=== PATIENT | male | born 1955 | race Caucasian/White ===

== ENCOUNTER 2018-05-24 10:18 | Inpatient (IN) | payer BC, OTHER ==
[~2018-05-24] VITALS: Ht 182.9 cm; Wt 112.9 kg
[2018-05-24] MEDS ORDERED: labetalol 20mg/4ml (5mg/ml) syringe IV STA (13:18)
[2018-05-24 13:45] LABS: BASOPHILS # (AUTO) 0.1 X10'3 (0-0.2); EOSINOPHILS # (AUTO) 0.4 X10'3 (0-0.9); EOSINOPHILS % (AUTO) 5.5 % (0-6); HEMATOCRIT 26.3 % (42.0-52.0); HEMOGLOBIN 8.5 g/dl (14.0-17.9); LYMPHOCYTES # (AUTO) 1.1 X10'3 (1.1-4.8); LYMPHOCYTES % (AUTO) 17.4 % (21-51); MEAN CORPUSCULAR HEMOGLOBIN 27.8 PG (27.0-31.0); MEAN CORPUSCULAR HGB CONC 32.4 g/dL (33.0-36.5); MEAN CORPUSCULAR VOLUME 85.8 FL (78-98); MEAN PLATELET VOLUME 6.3 FL (7.4-10.4); MONOCYTES # (AUTO) 0.5 X10'3 (0-0.9); MONOCYTES % (AUTO) 8.4 % (2-12); NEUTROPHILS # (AUTO) 4.4 X10'3 (1.8-7.7); NEUTROPHILS % (AUTO) 67.7 % (42-75); PLATELET COUNT 215 X10'3 (140-440); RED BLOOD COUNT 3.06 X10'6 (4.70-6.10); RED CELL DISTRIBUTION WIDTH 15.2 % (11.5-14.5); WHITE BLOOD COUNT 6.4 X10'3 (4.5-11.0)
[2018-05-24 13:57] LABS: ALANINE AMINOTRANSFERASE 20 U/L (12-78); ALBUMIN 3.3 G/DL (3.4-5.0); ALBUMIN/GLOBULIN RATIO 0.8 (1.1-1.5); ALKALINE PHOSPHATASE 88 IU/L (46-116); ANION GAP 11 (8-16); ASPARTATE AMINO TRANSFERASE 15 U/L (10-37); BILIRUBIN,TOTAL 0.3 MG/DL (0.1-1.0); BLOOD UREA NITROGEN 79 MG/DL (7-18); BUN/CREATININE RATIO 9.3 (5.4-32.0); CALCIUM 8.7 MG/DL (8.5-10.1); CHLORIDE 106 MMOL/L (99-107); CREATININE 8.48 MG/DL (0.60-1.10); GLUCOSE 101 MG/DL (70-104); POTASSIUM 4.9 MMOL/L (3.5-5.1); SODIUM 139 MMOL/L (135-145); TOTAL CARBON DIOXIDE 21.6 MMOL/L (24-32); TOTAL PROTEIN 7.2 G/DL (6.4-8.2); eGFR 6 ML/MIN
[2018-05-24 14:01] LABS: PARTIAL THROMBOPLASTIN TIME 28 SECONDS (22-32); PROTHROMBIN TIME 10.3 SECONDS (9.0-12.0)
[2018-05-24 14:06] LABS: MAGNESIUM 2.2 MG/DL (1.5-2.4); PHOSPHORUS 6.2 MG/DL (2.3-4.5)
[2018-05-24 15:00] VITALS: BP 223/110
[2018-05-24] MEDS ORDERED: HYDR-4069 PO ×2 (15:30→15:37)
[2018-05-24] MEDS ORDERED: DILT180C95 PO (15:36)
[2018-05-24] MEDS ORDERED: LOSA25TA96 PO (15:39)
[2018-05-24] MEDS ORDERED: CLIN300C53 PO (15:41)
[2018-05-24] MEDS ORDERED: diphenhydrAMINE 25mg capsule PO PRN (16:05)
[2018-05-24] MEDS ORDERED: acetaminophen 325mg tablet PO PRN (16:05)
[2018-05-24] MEDS ORDERED: HYDROmorphone inj. 0.5 MG/0.5 ML DISP.SYRIN IV PRN (16:05)
[2018-05-24] MEDS ORDERED: HYDROcodone/acetaminophen 5mg/325mg tablet PO PRN (16:05)
[2018-05-24] MEDS ORDERED: ondansetron/PF 4mg/2ml inj IV PRN (16:05)
[2018-05-24] MEDS ORDERED: furosemide 10 MG/1 ML 10ml inj IV ONE (16:25)
--- NOTE | 2018-05-24 16:49 | NUR ---
[address] PIV to bilat hands unsuccessful. Dr Thornton notified and OK to put piv in the arms. Attempt x [address] extended PIV to right upper arm but unable to thread. 20g to right forearm using ultrasound placed. Dr Thornton at bedside. Addendum: 05/24/18 at 1652 by Valerie Golden RN Amended: Links added.
[2018-05-24] MEDS: sevelamer carbonate 800mg tablet PO SCH (17:51)
[2018-05-24 18:00] VITALS: BP 184/90
[2018-05-24] MEDS ORDERED: labetalol 20mg/4ml (5mg/ml) syringe IV ONE (18:00)
[2018-05-24] MEDS: heparin, porcine 5000 units/ml vial SQ SCH (18:12)
[2018-05-24] MEDS: docusate sod 100mg capsule PO SCH (19:42)
[2018-05-24] MEDS: hydrALAZINE 25 MG tablet PO SCH (19:43)
[2018-05-24] MEDS ORDERED: heparin, porcine 5000 units/ml vial SQ SCH (20:00)
--- NOTE | 2018-05-24 20:22 | NUR ---
Orientee documentation: I have reviewed and agree with all interventions, assessments performed and documented by FARIHA Peralta.
--- NOTE | 2018-05-24 20:24 | NUR ---
Orientee Medication Administration: For this medication-pass time frame, all medication were reviewed, dispensed, administered and documented per hospital policy by FARIHA Peralta.
[2018-05-24] MEDS: labetalol 100mg tablet PO SCH (20:42)
--- NOTE | 2018-05-24 21:10 | NUR ---
Patient in room PCU 3009. I have received report from Dylan FRIED and had the opportunity to ask questions and assume patient care.
--- NOTE | 2018-05-24 21:26 | NUR ---
Problems reprioritized. Patient report given, questions answered & plan of care reviewed with FARIHA Prince.
[2018-05-24 23:00] VITALS: BP 157/81
[2018-05-25] VITALS (14 sets, daily range): BP systolic 110–196; BP diastolic 51–81
[2018-05-25 06:00] LABS: BASOPHILS # (AUTO) 0.1 X10'3 (0-0.2); BASOPHILS % (AUTO) 1.3 % (0-1); EOSINOPHILS # (AUTO) 0.4 X10'3 (0-0.9); EOSINOPHILS % (AUTO) 6.6 % (0-6); HEMATOCRIT 22.3 % (42.0-52.0); HEMOGLOBIN 7.7 g/dl (14.0-17.9); LYMPHOCYTES # (AUTO) 1.4 X10'3 (1.1-4.8); LYMPHOCYTES % (AUTO) 24.5 % (21-51); MEAN CORPUSCULAR HEMOGLOBIN 29.1 PG (27.0-31.0); MEAN CORPUSCULAR HGB CONC 34.3 g/dL (33.0-36.5); MEAN PLATELET VOLUME 6.6 FL (7.4-10.4); MONOCYTES # (AUTO) 0.5 X10'3 (0-0.9); MONOCYTES % (AUTO) 9.5 % (2-12); NEUTROPHILS # (AUTO) 3.3 X10'3 (1.8-7.7); NEUTROPHILS % (AUTO) 58.1 % (42-75); PLATELET COUNT 189 X10'3 (140-440); RED BLOOD COUNT 2.63 X10'6 (4.70-6.10); RED CELL DISTRIBUTION WIDTH 15.3 % (11.5-14.5); WHITE BLOOD COUNT 5.6 X10'3 (4.5-11.0)
[2018-05-25 06:10] LABS: ALBUMIN 2.9 G/DL (3.4-5.0); ANION GAP 11 (8-16); BLOOD UREA NITROGEN 81 MG/DL (7-18); BUN/CREATININE RATIO 9.5 (5.4-32.0); CALCIUM 8.2 MG/DL (8.5-10.1); CHLORIDE 106 MMOL/L (99-107); CREATININE 8.51 MG/DL (0.60-1.10); GLUCOSE 109 MG/DL (70-104); MAGNESIUM 2.1 MG/DL (1.5-2.4); PHOSPHORUS 6.9 MG/DL (2.3-4.5); SODIUM 141 MMOL/L (135-145); TOTAL CARBON DIOXIDE 23.7 MMOL/L (24-32); eGFR 6 ML/MIN
[2018-05-25] MEDS: heparin, porcine 5000 units/ml vial SQ SCH ×2 (07:35→20:52)
[2018-05-25] MEDS ORDERED: diltiazem CD 180mg cap (once-daily) PO SCH ×2 (08:00)
[2018-05-25] MEDS ORDERED: heparin 1,000unit/ml 10ml vial 10 ML ONE (08:09)
[2018-05-25] MEDS ORDERED: midazolam 2 mg/2 ml injection ONE (08:09)
[2018-05-25] MEDS ORDERED: fentaNYL/PF 50MCG/1 ML 2ML syringe ONE (08:09)
[2018-05-25] MEDS ORDERED: LIDOcaine 1%/PF 5ML 10 MG/ML VIAL ONE (08:19)
[2018-05-25] MEDS: docusate sod 100mg capsule PO SCH ×2 (09:21→20:51)
[2018-05-25] MEDS: diltiazem CD 180mg cap (once-daily) PO SCH (09:21)
[2018-05-25] MEDS: folic acid/vitamin B complex w/vitamin C 0.8mg tablet PO SCH (09:21)
[2018-05-25] MEDS: hydrALAZINE 25 MG tablet PO SCH ×2 (09:22→20:53)
[2018-05-25] MEDS: labetalol 100mg tablet PO SCH ×3 (09:23→20:52)
[2018-05-25] MEDS: furosemide 10 MG/1 ML 10ml inj IV SCH (09:25)
[2018-05-25] MEDS: sevelamer carbonate 800mg tablet PO SCH ×2 (09:34→12:08)
[2018-05-25] MEDS ORDERED: heparin 1,000 units/ml 10ml inj IV ONE (14:30)
[2018-05-25] MEDS ORDERED: albumin (Human) 5% 250ml 250 ML IV PRN (14:30)
[2018-05-25] MEDS ORDERED: epoetin 20,000 units/ml inj IV ONE (14:30)
[2018-05-25] MEDS ORDERED: heparin 1,000unit/ml 10ml vial 10 ML IV ONE (14:30)
[2018-05-25] MEDS ORDERED: heparin 1,000 units/ml 10ml inj HE ONE ×2 (14:35)
--- NOTE | 2018-05-25 18:31 | NUR ---
Problems reprioritized. Patient report given, questions answered & plan of care reviewed with Maria Elena FRIED.
--- NOTE | 2018-05-25 18:32 | NUR ---
Patient in room U 3009. I have received report from FARIHA Monreal and had the opportunity to ask questions and assume patient care. Addendum: 05/25/18 at 1833 by Maria Elena Gee RN Amended: Links added.
--- NOTE | 2018-05-25 18:33 | NUR ---
Patient in room PCU 3009. I have received report from FARIHA Nicholas (not Cesar) and had the opportunity to ask questions and assume patient care.
[2018-05-26 02:00] VITALS: BP 139/60
[2018-05-26 05:15] LABS: BASOPHILS # (AUTO) 0.1 X10'3 (0-0.2); BASOPHILS % (AUTO) 0.8 % (0-1); EOSINOPHILS # (AUTO) 0.3 X10'3 (0-0.9); HEMATOCRIT 23.3 % (42.0-52.0); HEMOGLOBIN 7.9 g/dl (14.0-17.9); LYMPHOCYTES # (AUTO) 1.4 X10'3 (1.1-4.8); LYMPHOCYTES % (AUTO) 20.6 % (21-51); MEAN CORPUSCULAR HEMOGLOBIN 28.9 PG (27.0-31.0); MEAN CORPUSCULAR HGB CONC 33.9 g/dL (33.0-36.5); MEAN CORPUSCULAR VOLUME 85.2 FL (78-98); MEAN PLATELET VOLUME 6.7 FL (7.4-10.4); MONOCYTES # (AUTO) 0.7 X10'3 (0-0.9); MONOCYTES % (AUTO) 10.7 % (2-12); NEUTROPHILS # (AUTO) 4.2 X10'3 (1.8-7.7); NEUTROPHILS % (AUTO) 62.9 % (42-75); PLATELET COUNT 191 X10'3 (140-440); RED BLOOD COUNT 2.73 X10'6 (4.70-6.10); RED CELL DISTRIBUTION WIDTH 15.1 % (11.5-14.5); WHITE BLOOD COUNT 6.6 X10'3 (4.5-11.0)
[2018-05-26 05:30] LABS: ANION GAP 8 (8-16); BLOOD UREA NITROGEN 50 MG/DL (7-18); BUN/CREATININE RATIO 8.1 (5.4-32.0); CALCIUM 8.5 MG/DL (8.5-10.1); CHLORIDE 104 MMOL/L (99-107); CREATININE 6.17 MG/DL (0.60-1.10); GLUCOSE 106 MG/DL (70-104); PHOSPHORUS 5.1 MG/DL (2.3-4.5); POTASSIUM 4.4 MMOL/L (3.5-5.1); SODIUM 140 MMOL/L (135-145); TOTAL CARBON DIOXIDE 27.6 MMOL/L (24-32); eGFR 9 ML/MIN
--- NOTE | 2018-05-26 06:32 | NUR ---
Patient in room PCU 3009. I have received report from Sabra FRIED and had the opportunity to ask questions and assume patient care.
--- NOTE | 2018-05-26 06:41 | NUR ---
Received pt. last night while having his first dilaysis. No noted changes in condition, denies chest pain or SOB. Cooperative and pleasant. Noted with high BP and medicated with good effect. Pt slept good and denies of any discomfort. Problems reprioritized. Patient report given, questions answered & plan of care reviewed with FARIHA Cortez.
[2018-05-26 07:00] VITALS: BP 137/62
[2018-05-26] MEDS ORDERED: heparin 1,000 units/ml 10ml inj HE ONE ×2 (08:00)
[2018-05-26] MEDS: folic acid/vitamin B complex w/vitamin C 0.8mg tablet PO SCH (08:04)
[2018-05-26] MEDS: sevelamer carbonate 800mg tablet PO SCH ×4 (08:05→17:32)
[2018-05-26] MEDS: furosemide 10 MG/1 ML 10ml inj IV SCH (08:06)
[2018-05-26] MEDS: diltiazem CD 180mg cap (once-daily) PO SCH (08:07)
[2018-05-26] MEDS: docusate sod 100mg capsule PO SCH ×2 (08:07→21:01)
[2018-05-26] MEDS: heparin, porcine 5000 units/ml vial SQ SCH ×2 (08:07→21:02)
[2018-05-26] MEDS: labetalol 100mg tablet PO SCH ×3 (08:07→21:00)
[2018-05-26] MEDS: hydrALAZINE 25 MG tablet PO SCH ×2 (08:07→21:01)
[2018-05-26] MEDS ORDERED: epoetin 20,000 units/ml inj IV ONE (08:25)
[2018-05-26] MEDS ORDERED: albumin (Human) 5% 250ml 250 ML IV PRN (10:15)
[2018-05-26 11:00] VITALS: BP 104/54
[2018-05-26 15:00] VITALS: BP 124/61
[2018-05-26 18:00] VITALS: BP 114/47
--- NOTE | 2018-05-26 18:47 | NUR ---
Problems reprioritized. Patient report given, questions answered & plan of care reviewed with Mecca FRIED. Patient stable at transfer of care.
--- NOTE | 2018-05-26 18:53 | NUR ---
Patient in room PCU 3009. I have received report from Dana FRIED and had the opportunity to ask questions and assume patient care.
[2018-05-26 22:00] VITALS: BP 121/59
[2018-05-27 02:00] VITALS: BP 117/51
[2018-05-27 05:57] LABS: BASOPHILS # (AUTO) 0.1 X10'3 (0-0.2); BASOPHILS % (AUTO) 1.1 % (0-1); EOSINOPHILS # (AUTO) 0.5 X10'3 (0-0.9); EOSINOPHILS % (AUTO) 6.8 % (0-6); HEMATOCRIT 23.6 % (42.0-52.0); HEMOGLOBIN 7.8 g/dl (14.0-17.9); MEAN CORPUSCULAR HEMOGLOBIN 28.4 PG (27.0-31.0); MEAN CORPUSCULAR HGB CONC 33.2 g/dL (33.0-36.5); MEAN CORPUSCULAR VOLUME 85.5 FL (78-98); MEAN PLATELET VOLUME 6.9 FL (7.4-10.4); MONOCYTES # (AUTO) 0.7 X10'3 (0-0.9); MONOCYTES % (AUTO) 10.2 % (2-12); NEUTROPHILS # (AUTO) 3.7 X10'3 (1.8-7.7); NEUTROPHILS % (AUTO) 52.9 % (42-75); PLATELET COUNT 194 X10'3 (140-440); RED BLOOD COUNT 2.76 X10'6 (4.70-6.10); RED CELL DISTRIBUTION WIDTH 15.4 % (11.5-14.5); WHITE BLOOD COUNT 6.9 X10'3 (4.5-11.0)
[2018-05-27 06:02] LABS: ALBUMIN 3.1 G/DL (3.4-5.0); ANION GAP 9 (8-16); BLOOD UREA NITROGEN 40 MG/DL (7-18); BUN/CREATININE RATIO 7.1 (5.4-32.0); CALCIUM 8.7 MG/DL (8.5-10.1); CHLORIDE 102 MMOL/L (99-107); CREATININE 5.63 MG/DL (0.60-1.10); GLUCOSE 115 MG/DL (70-104); MAGNESIUM 1.8 MG/DL (1.5-2.4); PHOSPHORUS 4.3 MG/DL (2.3-4.5); POTASSIUM 4.1 MMOL/L (3.5-5.1); SODIUM 138 MMOL/L (135-145); TOTAL CARBON DIOXIDE 27.5 MMOL/L (24-32); eGFR 10 ML/MIN
[2018-05-27 07:00] VITALS: BP 131/57
--- NOTE | 2018-05-27 07:20 | NUR ---
Problems reprioritized. Patient report given, questions answered & plan of care reviewed with Dana FRIED.
[2018-05-27] MEDS: docusate sod 100mg capsule PO SCH (07:55)
[2018-05-27] MEDS: folic acid/vitamin B complex w/vitamin C 0.8mg tablet PO SCH (07:55)
[2018-05-27] MEDS: furosemide 10 MG/1 ML 10ml inj IV SCH (07:55)
[2018-05-27] MEDS ORDERED: normal saline 1000ml 250 ML IV PRN (08:00)
[2018-05-27] MEDS: heparin, porcine 5000 units/ml vial SQ SCH (08:00)
[2018-05-27] MEDS ORDERED: heparin 1,000unit/ml 10ml vial 10 ML IV ONE ×2 (08:00)
[2018-05-27] MEDS: diltiazem CD 180mg cap (once-daily) PO SCH (08:00)
[2018-05-27] MEDS: hydrALAZINE 25 MG tablet PO SCH (08:00)
[2018-05-27] MEDS ORDERED: albumin (Human) 5% 250ml 250 ML IV PRN ×2 (08:00)
[2018-05-27] MEDS ORDERED: heparin 1,000 units/ml 10ml inj HE ONE ×4 (08:00)
[2018-05-27] MEDS ORDERED: heparin 1,000 units/ml 10ml inj IV ONE (08:00)
[2018-05-27] MEDS ORDERED: epoetin 20,000 units/ml inj IV ONE (08:00)
[2018-05-27] MEDS: labetalol 100mg tablet PO SCH ×2 (08:00→13:00)
[2018-05-27] MEDS: sevelamer carbonate 800mg tablet PO SCH ×2 (08:30→15:48)
[2018-05-27 10:18] LABS: BASOPHILS # (AUTO) 0.1 X10'3 (0-0.2); BASOPHILS % (AUTO) 1.2 % (0-1); EOSINOPHILS # (AUTO) 0.5 X10'3 (0-0.9); EOSINOPHILS % (AUTO) 7.9 % (0-6); HEMATOCRIT 24.6 % (42.0-52.0); HEMOGLOBIN 8.1 g/dl (14.0-17.9); LYMPHOCYTES # (AUTO) 1.7 X10'3 (1.1-4.8); LYMPHOCYTES % (AUTO) 25.9 % (21-51); MEAN CORPUSCULAR HEMOGLOBIN 28.5 PG (27.0-31.0); MEAN CORPUSCULAR VOLUME 86.2 FL (78-98); MEAN PLATELET VOLUME 6.7 FL (7.4-10.4); MONOCYTES # (AUTO) 0.7 X10'3 (0-0.9); MONOCYTES % (AUTO) 10.9 % (2-12); NEUTROPHILS # (AUTO) 3.5 X10'3 (1.8-7.7); NEUTROPHILS % (AUTO) 54.1 % (42-75); PLATELET COUNT 197 X10'3 (140-440); RED BLOOD COUNT 2.85 X10'6 (4.70-6.10); RED CELL DISTRIBUTION WIDTH 15.4 % (11.5-14.5); WHITE BLOOD COUNT 6.5 X10'3 (4.5-11.0)
[2018-05-27 10:32] LABS: ALANINE AMINOTRANSFERASE 15 U/L (12-78); ALBUMIN 3.1 G/DL (3.4-5.0); ALBUMIN/GLOBULIN RATIO 0.9 (1.1-1.5); ALKALINE PHOSPHATASE 73 IU/L (46-116); ANION GAP 9 (8-16); ASPARTATE AMINO TRANSFERASE 10 U/L (10-37); BILIRUBIN,TOTAL 0.3 MG/DL (0.1-1.0); BLOOD UREA NITROGEN 39 MG/DL (7-18); BUN/CREATININE RATIO 6.5 (5.4-32.0); CALCIUM 8.7 MG/DL (8.5-10.1); CHLORIDE 103 MMOL/L (99-107); CREATININE 5.98 MG/DL (0.60-1.10); GLUCOSE 112 MG/DL (70-104); POTASSIUM 4.1 MMOL/L (3.5-5.1); SODIUM 140 MMOL/L (135-145); TOTAL CARBON DIOXIDE 28.4 MMOL/L (24-32); TOTAL PROTEIN 6.7 G/DL (6.4-8.2); eGFR 10 ML/MIN
[2018-05-27 11:00] VITALS: BP 139/74
[2018-05-27 13:10] LABS: HBSAG SCREEN Negative (Negative)
[2018-05-27] MEDS ORDERED: DIPH-423 PO (15:44)
[2018-05-27] MEDS ORDERED: COL100C PO (15:44)
[2018-05-27] MEDS ORDERED: LABE100T5 PO (15:44)
[2018-05-27] MEDS ORDERED: ZOF4I PO (15:44)
[2018-05-27] MEDS ORDERED: SEVE800T8 PO (15:44)
[2018-05-27] MEDS ORDERED: FOLI0.8T22 PO (15:44)
[2018-05-27] MEDS ORDERED: FURO10VI51 PO (15:44)
[2018-05-27] MEDS ORDERED: FURO80TA87 PO (16:52)
[2018-05-27] MEDS ORDERED: LABE300T2 PO (16:52)
[2018-05-27] MEDS ORDERED: ONDA4TAB6 PO (16:52)
--- NOTE | 2018-05-27 17:49 | NUR ---
Pt discharged at 1725 home with family. Pt telemetry and PIV removed, belongings sent with patient. Pt discharged packet and education were reviewed before signing. Pt was wheeled down and left via private vehicle with family.
== END 2018-05-27 17:30 | disposition home or self-care (01) | DRG 673 ==
LOC: PCU 3S 12:15
PROVIDERS: ADMIT Internal Medicine Critical Care Medicine; ATTEND Internal Medicine Critical Care Medicine
PROC: 0JH63XZ Insertion of Tunneled Vascular Access Device into Chest Subcutaneous Tissue and Fascia, Percutaneous Approach (ICD-10-PCS; principal; 2018-05-25)
PROC: 02HV33Z Insertion of Infusion Device into Superior Vena Cava, Percutaneous Approach (ICD-10-PCS; 2018-05-25)
PROC: B5181ZA Fluoroscopy of Superior Vena Cava using Low Osmolar Contrast, Guidance (ICD-10-PCS; 2018-05-25)
PROC: B548ZZA Ultrasonography of Superior Vena Cava, Guidance (ICD-10-PCS; 2018-05-25)
PROC: 5A1D70Z Performance of Urinary Filtration, Intermittent, Less than 6 Hours Per Day (ICD-10-PCS; 2018-05-25)
PROC: 5A1D70Z Performance of Urinary Filtration, Intermittent, Less than 6 Hours Per Day (ICD-10-PCS; 2018-05-26)
PROC: 5A1D70Z Performance of Urinary Filtration, Intermittent, Less than 6 Hours Per Day (ICD-10-PCS; 2018-05-27)
DX: I12.0 Hypertensive chronic kidney disease with stage 5 chronic kidney disease or end stage renal disease (principal); N18.6 End stage renal disease; N17.9 Acute kidney failure, unspecified; E87.70 Fluid overload, unspecified; Z79.899 Other long term (current) drug therapy
CPT/HCPCS: 36415; 36558; 71045; 76937; 77001; 80048; 80053; 83735; 83880; 84100; 85025; 85610; 85730; 86706; 87340; 93005; 93306; 93930; 93970; 97161; 97530; 99152; 99153; A9270; C1750; C1769; C1894; G0257; G0378; J0885; J1644; J1940; J2001; J2150; J2250; J3010; J3490; P9045

== ENCOUNTER 2018-11-30 07:47 | Day surgery (SDC) | payer BC ==
[~2018-11-30] VITALS: Ht 177.8 cm; Wt 110.1 kg
[~2018-11-30 07:47] MED LIST: CHOL10002 PO; DOCU-20 PO; FURO-149 PO; LABE100T5 PO; OMEG1CAP87 PO; SEVE800T7 PO; VITA1CAP16 PO
[2018-11-30] MEDS ORDERED: fentaNYL/PF 50MCG/1 ML 2ML syringe ONE (08:53)
[2018-11-30] MEDS ORDERED: heparin 1,000 UNITS/NS 500ml 500 ML ONE (08:53)
[2018-11-30] MEDS ORDERED: midazolam 2 mg/2 ml injection ONE (08:53)
[2018-11-30] MEDS ORDERED: iohexol 300mg/ml 100ml inj. ONE (08:54)
[2018-11-30] MEDS ORDERED: LIDOcaine 1%/PF 5ML 10 MG/ML VIAL ONE (08:54)
[2018-11-30 09:30] VITALS: BP 149/87
[2018-11-30 10:01] LABS: ANION GAP 14 (8-16); BILIRUBIN,TOTAL 0.4 MG/DL (0.1-1.0); BLOOD UREA NITROGEN 61 MG/DL (7-18); BUN/CREATININE RATIO 7.3 (5.4-32.0); CALCIUM 8.8 MG/DL (8.5-10.1); CHLORIDE 104 MMOL/L (99-107); CREATININE 8.32 MG/DL (0.60-1.10); GLUCOSE 110 MG/DL (70-104); SODIUM 141 MMOL/L (135-145); eGFR 7 ML/MIN
[2018-11-30 10:02] LABS: ALANINE AMINOTRANSFERASE 17 U/L (12-78); ALBUMIN 3.6 G/DL (3.4-5.0); ALBUMIN/GLOBULIN RATIO 0.9 (1.1-1.5); ALKALINE PHOSPHATASE 65 IU/L (46-116); ASPARTATE AMINO TRANSFERASE 13 U/L (10-37); TOTAL PROTEIN 7.4 G/DL (6.4-8.2)
[2018-11-30] MEDS ORDERED: heparin 1,000unit/ml 10ml vial 10 ML ONE (10:17)
[2018-11-30 10:32] VITALS: BP 172/87
[2018-11-30 10:45] VITALS: BP 154/77
[2018-11-30 11:00] VITALS: BP 148/78
== END 2018-11-30 11:25 | disposition home or self-care (01) ==
LOC: SSTAY O 07:47
PROVIDERS: ATTEND Radiology Vascular & Interventional Radiology
DX: T82.858A Stenosis of other vascular prosthetic devices, implants and grafts, initial encounter (principal); Y83.2 Surgical operation with anastomosis, bypass or graft as the cause of abnormal reaction of the patient, or of later complication, without mention of misadventure at the time of the procedure; Y92.89 Other specified places as the place of occurrence of the external cause; I12.0 Hypertensive chronic kidney disease with stage 5 chronic kidney disease or end stage renal disease; N18.5 Chronic kidney disease, stage 5; K08.409 Partial loss of teeth, unspecified cause, unspecified class; Z79.899 Other long term (current) drug therapy
CPT/HCPCS: 36415; 36901; 80053; 99152; 99153; C1769; C1894; J1644; J2250; J3010; Q9967; 76937

== ENCOUNTER 2018-12-27 06:44 | Day surgery (SDC) | payer BC ==
[2018-12-26 15:15] LABS: CLARITY,URINE CLEAR (Clear); COLOR,URINE YELLOW (Yellow); GLUCOSE, URINE 100 mg/dl (Neg); KETONES,URINE NEGATIVE (Neg); LEUKOCYTE ESTERASE ,URINE NEGATIVE (Neg); NITRITES, URINE NEGATIVE (Neg); OCCULT BLOOD,URINE TRACE-INTACT (Neg); PROTEIN,URINE 100 mg/dl (Neg); UROBILINOGEN,URINE 0.2 E.U/dL (0.2-1.0)
[2018-12-26 15:23] LABS: UA COLLECTION TYPE CLN CATCH MIDSTREAM
[2018-12-26 15:26] LABS: BACTERIA,URINE NONE SEEN /HPF (Neg); MUCUS STRANDS NONE SEEN /LPF (Neg); RBC,URINE 0-2 /HPF (0-2); SQUAMOUS EPITHELIAL CELL,UR FEW /LPF (FEW); WBC,URINE 0-4 /HPF (0-4)
[2018-12-27] VITALS (10 sets, daily range): BP systolic 142–161; BP diastolic 80–90
[~2018-12-27] VITALS: Ht 177.8 cm; Wt 108.0 kg
[~2018-12-27 06:44] MED LIST changes: +cefazolin/dext.iso 2gm/50ml 50 ML IV ONE; +famotidine 20mg tablet PO ONE; +ringers solution, lacted 1,000 ML IV SCH
[2018-12-27] MEDS ORDERED: proCHLORperazine 10 MG/2 ml inj IV PRN (08:45)
[2018-12-27] MEDS ORDERED: ondansetron/PF 4mg/2ml inj IV PRN (08:45)
[2018-12-27] MEDS ORDERED: ringers solution, lacted 1,000 ML IV SCH (08:45)
[2018-12-27] MEDS ORDERED: meperidine/PF 25mg/ml syringe IV PRN ×3 (08:45)
[2018-12-27] MEDS ORDERED: morphine 4 MG/ML inj SYRINge IV PRN ×2 (08:45)
[2018-12-27 09:08] LABS: BASOPHILS % (AUTO) 0.8 % (0-1); EOSINOPHILS # (AUTO) 0.2 X10'3 (0-0.9); EOSINOPHILS % (AUTO) 3.6 % (0-6); LYMPHOCYTES # (AUTO) 2.4 X10'3 (1.1-4.8); LYMPHOCYTES % (AUTO) 39.3 % (21-51); MEAN CORPUSCULAR HEMOGLOBIN 30.9 PG (27.0-31.0); MEAN CORPUSCULAR HGB CONC 33.7 g/dL (33.0-36.5); MEAN CORPUSCULAR VOLUME 91.7 FL (78-98); MEAN PLATELET VOLUME 6.3 FL (7.4-10.4); MONOCYTES # (AUTO) 0.6 X10'3 (0-0.9); MONOCYTES % (AUTO) 9.7 % (2-12); NEUTROPHILS # (AUTO) 2.9 X10'3 (1.8-7.7); NEUTROPHILS % (AUTO) 46.6 % (42-75); PRE OP HEMATOCRIT 37.2 % (42.0-52.0); PRE OP HEMOGLOBIN 12.5 g/dL (14.0-17.9); PRE OP PLATELET COUNT 185 X10'3 (140-440); RED BLOOD COUNT 4.05 X10'6 (4.70-6.10); RED CELL DISTRIBUTION WIDTH 14.1 % (11.5-14.5)
[2018-12-27 09:20] LABS: ALANINE AMINOTRANSFERASE 21 U/L (12-78); ALBUMIN 3.6 G/DL (3.4-5.0); ALBUMIN/GLOBULIN RATIO 0.9 (1.1-1.5); ALKALINE PHOSPHATASE 77 IU/L (46-116); ANION GAP 10 (8-16); ASPARTATE AMINO TRANSFERASE 13 U/L (10-37); BILIRUBIN,TOTAL 0.4 MG/DL (0.1-1.0); BLOOD UREA NITROGEN 41 MG/DL (7-18); BUN/CREATININE RATIO 5.7 (5.4-32.0); CHLORIDE 101 MMOL/L (99-107); CREATININE 7.21 MG/DL (0.60-1.10); GLUCOSE 111 MG/DL (70-104); SODIUM 138 MMOL/L (135-145); TOTAL CARBON DIOXIDE 27.1 MMOL/L (24-32); TOTAL PROTEIN 7.7 G/DL (6.4-8.2); eGFR 8 ML/MIN
[2018-12-27] MEDS ORDERED: BUPIVAcaine/PF 2.5mg/ml (0.25%) 10ml vial ONE (12:17)
[2018-12-27] MEDS ORDERED: heparin 10,000 units/1 ML INJ ONE (12:17)
[2018-12-27] MEDS ORDERED: desflurane 240ml liquid inh. IH ONE (12:20)
[2018-12-27] MEDS ORDERED: midazolam 2 mg/2 ml injection ONE (12:23)
[2018-12-27] MEDS ORDERED: fentaNYL/PF 50MCG/1 ML 2ML syringe ONE (12:23)
[2018-12-27] MEDS ORDERED: propofol inj 20 ML IV ONE (13:18)
[2018-12-27] MEDS ORDERED: LIDOcaine 2% (20mg/ml) 5ml vial ONE (13:18)
--- NOTE | 2018-12-27 13:50 | NUR ---
ADMITTED TO PACU FROM OR ACCOMPANIED BY ANESTHESIA. INTIAL PHYSICAL ASSESSMENT DONE AND RECORDED. REPORT RECEIVED FROM ANESTHESIA.
--- NOTE | 2018-12-27 15:30 | NUR ---
DISCHARGE CRITERIA MET, DISCHARGE INSTRUCTIONS GIVEN, DEMONSTRATES VERBAL UNDERSTANDING. DISCHARGED HOME IN GOOD CONDITION.
== END 2018-12-27 15:30 | disposition home or self-care (01) ==
LOC: PAS 06:44
PROVIDERS: ATTEND Surgery
DX: I12.9 Hypertensive chronic kidney disease with stage 1 through stage 4 chronic kidney disease, or unspecified chronic kidney disease (principal); N18.9 Chronic kidney disease, unspecified; D64.9 Anemia, unspecified; Z88.8 Allergy status to other drugs, medicaments and biological substances; Z99.2 Dependence on renal dialysis; Z79.899 Other long term (current) drug therapy
CPT/HCPCS: 36415; 36832; 80053; 81001; 85025; 93005; C1757; J1644; J2001; J2175; J2250; J2704; J3010; J3490; J7040; J7120; A4215; A4618; A7000

== ENCOUNTER 2019-02-14 09:22 | Day surgery (SDC) | payer BC ==
[2019-02-14] VITALS (19 sets, daily range): BP systolic 119–177; BP diastolic 57–97
[~2019-02-14] VITALS: Ht 180.3 cm; Wt 110.0 kg
[~2019-02-14 09:22] MED LIST changes: +DOCUMENT DATE & TIME OF BETA-BLOCKER PO ONE; +cefazolin/dext.iso 2gm/100ml 100 ML IV ONE; -cefazolin/dext.iso 2gm/50ml 50 ML IV ONE
[2019-02-14 11:28] LABS: BASOPHILS # (AUTO) 0.1 X10'3 (0-0.2); EOSINOPHILS # (AUTO) 0.2 X10'3 (0-0.9); EOSINOPHILS % (AUTO) 3.3 % (0-6); LYMPHOCYTES # (AUTO) 2.1 X10'3 (1.1-4.8); LYMPHOCYTES % (AUTO) 37.3 % (21-51); MEAN CORPUSCULAR HEMOGLOBIN 31.4 PG (27.0-31.0); MEAN CORPUSCULAR HGB CONC 33.7 g/dL (33.0-36.5); MEAN CORPUSCULAR VOLUME 93.1 FL (78-98); MEAN PLATELET VOLUME 6.6 FL (7.4-10.4); MONOCYTES # (AUTO) 0.6 X10'3 (0-0.9); MONOCYTES % (AUTO) 11.2 % (2-12); NEUTROPHILS # (AUTO) 2.6 X10'3 (1.8-7.7); NEUTROPHILS % (AUTO) 47.2 % (42-75); PRE OP HEMATOCRIT 34.3 % (42.0-52.0); PRE OP HEMOGLOBIN 11.6 g/dL (14.0-17.9); PRE OP PLATELET COUNT 187 X10'3 (140-440); RED BLOOD COUNT 3.69 X10'6 (4.70-6.10); RED CELL DISTRIBUTION WIDTH 14.3 % (11.5-14.5)
[2019-02-14 11:52] LABS: ALBUMIN 3.5 G/DL (3.4-5.0); ALKALINE PHOSPHATASE 69 IU/L (46-116); BLOOD UREA NITROGEN 54 MG/DL (7-18); BUN/CREATININE RATIO 7.5 (5.4-32.0); CALCIUM 8.6 MG/DL (8.5-10.1); CHLORIDE 103 MMOL/L (99-107); CREATININE 7.16 MG/DL (0.60-1.10); PRE OP ALT 17 U/L (30-65); PRE OP ANION GAP 11 (8-16); PRE OP AST 16 U/L (10-37); PRE OP BILIRUB, TOTAL 0.5 MG/DL (0.0-1.0); PRE OP GLUCOSE 101 MG/DL (70-104); PRE OP POTASSIUM 5.2 MMOL/L (3.4-5.1); PRE OP SODIUM 140 MMOL/L (135-145); TOTAL CARBON DIOXIDE 25.6 MMOL/L (24-32); TOTAL PROTEIN 7.1 G/DL (6.4-8.2); eGFR 8 ML/MIN
[2019-02-14] MEDS ORDERED: ceFAZolin 1000mg inj ONE (12:25)
[2019-02-14] MEDS ORDERED: heparin sodium, porcine/PF 100unit/ml 5ML syringe ONE (12:25)
[2019-02-14] MEDS ORDERED: mupirocin 2% ointment 22GM ONE (12:26)
[2019-02-14] MEDS ORDERED: BUPIVAcaine/PF 2.5 mg/ml (0.25%) 30ml vial ONE (12:26)
[2019-02-14] MEDS ORDERED: sevoflurane 250ml liquid IH ONE (13:28)
[2019-02-14] MEDS ORDERED: neostigmine methylsulfate 1 MG/ML 10ml vial ONE (13:29)
[2019-02-14] MEDS ORDERED: dexamethasone sod phosphate 4mg/ml inj. ONE (13:29)
[2019-02-14] MEDS ORDERED: etomidate 2mg/ml inj. ONE (13:29)
[2019-02-14] MEDS ORDERED: rocuronium 10mg/ml inj IV ONE (13:29)
[2019-02-14] MEDS ORDERED: ondansetron/PF 4mg/2ml inj ONE (13:29)
[2019-02-14] MEDS ORDERED: morphine 10mg/ml inj. ONE (13:41)
[2019-02-14] MEDS ORDERED: labetalol 20mg/4ml (5mg/ml) syringe IV ONE (13:42)
[2019-02-14] MEDS ORDERED: hydrALAZINE 20mg/ml inj. IV ONE (14:00)
[2019-02-14] MEDS ORDERED: ringers solution, lacted 1,000 ML IV SCH (14:03)
[2019-02-14] MEDS ORDERED: morphine 4 MG/ML inj SYRINge IV PRN ×2 (14:05)
[2019-02-14] MEDS ORDERED: fentaNYL/PF 50MCG/1 ML 2ML syringe IV PRN ×2 (14:05)
[2019-02-14] MEDS ORDERED: ondansetron/PF 4mg/2ml inj IV PRN (14:05)
[2019-02-14] MEDS ORDERED: hydrALAZINE 20mg/ml inj. IV PRN (14:05)
[2019-02-14] MEDS ORDERED: labetalol 20mg/4ml (5mg/ml) syringe IV PRN (14:05)
[2019-02-14] MEDS ORDERED: glycopyrrolate 0.2mg/ml inj ONE (14:12)
--- NOTE | 2019-02-14 14:38 | NUR ---
Received from OR via BRYAN, accompanied by Anesthesiologist DR FLAHERTY and report given by Anesthesiologist. PT DROWSY, DENIES PAIN, ABDOMEN W/LAP SITES W/BANDAIDS CDI, LOWER ABDOMEN W/MEDIPORE TAPE COVERING INCISION W/PD DIALYSIS CATHETER OUTSIDE OF DRSG. CDI. Addendum: 02/14/19 at 1453 by Cynthia Franks RN Amended: Links added.
[2019-02-14] MEDS ORDERED: HYDROcodone/acetaminophen 5mg/325mg tablet PO ONE (17:10)
--- NOTE | 2019-02-14 17:38 | NUR ---
CESAR GIVEN FOR MILD PAIN AND RIDE HOME, D/C INSTRUCTIONS GIVEN AND GONE OVER W/PT AND PTS WHOM VERBALIZE UNDERSTANDING, PT D/CD TO HOME VIA W/C TO PRIVATE VEHICLE W/O INCIDENT. Addendum: 02/14/19 at 1802 by Cynthia Franks RN Amended: Links added.
== END 2019-02-14 17:38 | disposition home or self-care (01) ==
LOC: PAS 09:22
PROVIDERS: ATTEND Surgery
DX: I12.9 Hypertensive chronic kidney disease with stage 1 through stage 4 chronic kidney disease, or unspecified chronic kidney disease (principal); N18.9 Chronic kidney disease, unspecified; E66.9 Obesity, unspecified; Z68.23 Body mass index [BMI] 23.0-23.9, adult; Z79.899 Other long term (current) drug therapy; Z87.891 Personal history of nicotine dependence; Z98.84 Bariatric surgery status; Z98.890 Other specified postprocedural states; Z86.73 Personal history of transient ischemic attack (TIA), and cerebral infarction without residual deficits
CPT/HCPCS: 36415; 49324; 80053; 85025; 93005; C1750; C1758; J0360; J0690; J1100; J1642; J2270; J2405; J2710; J3490; A4215; A4618; A6449; A7000; J7120

== ENCOUNTER 2020-06-11 12:55 | Inpatient (IN) | payer BC ==
[~2020-06-11] VITALS: Ht 175.3 cm; Wt 107.2 kg
[2020-06-11] VITALS (11 sets, daily range): BP systolic 90–114; BP diastolic 54–84
[~2020-06-11 12:55] MED LIST changes: -DOCU-20 PO; +DOCU-348 PO; -DOCUMENT DATE & TIME OF BETA-BLOCKER PO ONE; +amiodarone 50MG/ML inj IV ONE; +atropine 0.1mg/ml 10ml syringe ONE; -cefazolin/dext.iso 2gm/100ml 100 ML IV ONE; +epiNEPHrine 0.1mg/ml 10ml syringe ONE; -famotidine 20mg tablet PO ONE; -ringers solution, lacted 1,000 ML IV SCH; +rocuronium 10mg/ml inj IV ONE
[2020-06-11] MEDS ORDERED: HYDR-4069 PO (13:46)
[2020-06-11] MEDS ORDERED: SODI650T29 PO (13:46)
[2020-06-11] MEDS ORDERED: CALC668T PO (13:46)
[2020-06-11] MEDS ORDERED: UBID100C16 PO (13:46)
[2020-06-11] MEDS ORDERED: ELDE1CAP (13:46)
[2020-06-11] MEDS ORDERED: LOSA50TA3 PO (13:46)
[2020-06-11] MEDS ORDERED: LACT1CAP75 PO (13:46)
[2020-06-11] MEDS ORDERED: MV,F1CAP PO (13:46)
[2020-06-11] MEDS ORDERED: CALC0.2536 PO (13:46)
[2020-06-11] MEDS ORDERED: LIDOcaine 1%/PF 5ML 10 MG/ML VIAL ONE (13:52)
[2020-06-11] MEDS ORDERED: heparin 1,000unit/ml 10ml vial 10 ML ONE (13:52)
[2020-06-11] MEDS ORDERED: midazolam 1 mg/ML 2ml injection ONE (14:14)
[2020-06-11] MEDS ORDERED: fentaNYL/PF 50MCG/1 ML 2ML syringe ONE (14:15)
[2020-06-11 14:20] LABS: ALBUMIN 2.9 G/DL (3.4-5.0); ANION GAP 15 (8-16); BLOOD UREA NITROGEN 95 MG/DL (7-18); BUN/CREATININE RATIO 5.7 (5.4-32.0); CALCIUM 8.6 MG/DL (8.5-10.1); CHLORIDE 94 MMOL/L (99-107); CREATININE 16.69 MG/DL (0.60-1.10); GLUCOSE 123 MG/DL (70-104); POTASSIUM 5.3 MMOL/L (3.5-5.1); SODIUM 134 MMOL/L (135-145); TOTAL CARBON DIOXIDE 25.3 MMOL/L (24-32); eGFR 3 ML/MIN
[2020-06-11] MEDS ORDERED: ondansetron/PF 4mg/2ml inj IV PRN (16:55)
[2020-06-11] MEDS ORDERED: acetaminophen 325mg tablet PO PRN (16:55)
[2020-06-11] MEDS ORDERED: magnesium hydroxide 30ml (MOM) UD suspension PO PRN (16:55)
[2020-06-11] MEDS ORDERED: mag hydrox/Alum hydrox/simeth 30ml oral suspension PO PRN (16:55)
[2020-06-11] MEDS ORDERED: amiodarone/D5 360MG/200ML BAG 200 ML IV SCH (17:00)
[2020-06-11] MEDS ORDERED: amiodarone 150mg/dext, iso-os 100 ML IV ONE (17:00)
--- NOTE | 2020-06-11 17:30 | NUR ---
Problems reprioritized. Patient report given, questions answered & plan of care reviewed with FARIHA Montiel, pt will be going to room 3000 shortly.
--- NOTE | 2020-06-11 17:45 | NUR ---
VSS for pt, pt R anterior chest incision site NOMI, FARIHA Montiel at pt's bedside, Lynn, pt's at bedside, pt is in no distress at this time, all pt belongings transferred to room 3009.
--- NOTE | 2020-06-11 18:00 | NUR ---
Patient placed into bed 3009 after receiving report from FARIHA Couch. Patient was transferred from [facility] into hospital bed. Patient placed onto edge stainer and mobile blood pressure cuff. Loading dose Amiodarone was started onto patient. Needs met with patient and patient's . technical services specialist at bedside to prepare patient for echocardiogram.
--- NOTE | 2020-06-11 18:00 | NUR ---
Patient in room PCU 3009. I have received report from Tiana FRIED and had the opportunity to ask questions and assume patient care.
--- NOTE | 2020-06-11 18:10 | NUR ---
Problems reprioritized. Patient report given, questions answered & plan of care reviewed with FARIHA Steinberg and FARIHA Willis.
--- NOTE | 2020-06-11 18:53 | NUR ---
Hospitalist Paged PAGER ID: [phone] MESSAGE: Re: Marcus Alejandra room 3009. Here for Afib RVR and TDC placement. Pt BP 93/53 HR 100-120s Afib, has Amiodarone drip due. Would you like us to continue drip? Alba/Joshua [phone]
--- NOTE | 2020-06-11 19:15 | NUR ---
Hospitalist Paged PAGER ID: [phone] MESSAGE: Re: Marcus Alejandra room 3009. Here for Afib RVR and TDC placement. Pt BP 93/53 HR 100-120s Afib, MAP 53, has Amiodarone drip due. Would you like us to continue drip? Alba/Joshua [phone]
--- NOTE | 2020-06-11 19:18 | NUR ---
Spoke to Dr. Marie via telephone. Dr. Marie comfortable continuing with Amiodarone drip as ordered. BP 93/53, HR 100-120s, Afib.
[2020-06-11] MEDS: apixaban 5mg tablet PO SCH (19:37)
[2020-06-11] MEDS ORDERED: albumin (human) 25% 100ml IV 100 ML IV PRN (20:30)
[2020-06-11] MEDS ORDERED: heparin 1,000 units/ml 10ml inj HE ONE (20:35)
--- NOTE | 2020-06-11 23:36 | NUR ---
Patient converted to Sinus Rhythm
[2020-06-12] VITALS (7 sets, daily range): BP systolic 81–106; BP diastolic 54–73
--- NOTE | 2020-06-12 | NUR ---
Patient HR 50 sinus bradycardia, BP 77 systolic, MAP of 57. Patient asymptomatic. Patient BP continued to stay hypotensive. Amiodarone drip stopped. Rapid response called. Dr. Marie at bedside and notified of low BP and low HR. Received order to stop Amiodarone.
--- NOTE | 2020-06-12 00:03 | NUR ---
PAGER ID: [phone] MESSAGE: [phone] RAPID RESPONSE CALLED. BP DROPPED, SATS DROPPED. HR DROPPED
[2020-06-12] MEDS ORDERED: heparin 1,000 units/ml 10ml inj HE ONE ×3 (00:45→14:50)
--- NOTE | 2020-06-12 01:22 | NUR ---
Hospitalist Paged PAGER ID: [phone] MESSAGE: Re: Marcus Alejandra rm [phone]. Here for Afib with RVR. Patient continues to have systolic BP <80, MAP <60, HR <60. Saadia [phone]
[2020-06-12 02:01] LABS: BASOPHILS % (AUTO) 0.4 % (0-1); EOSINOPHILS # (AUTO) 0.2 X10'3 (0-0.9); EOSINOPHILS % (AUTO) 1.7 % (0-6); LYMPHOCYTES # (AUTO) 0.9 X10'3 (1.1-4.8); LYMPHOCYTES % (AUTO) 9.7 % (21-51); MEAN PLATELET VOLUME 7.8 FL (7.4-10.4); MONOCYTES # (AUTO) 1.2 X10'3 (0-0.9); MONOCYTES % (AUTO) 12.5 % (2-12); NEUTROPHILS # (AUTO) 7.1 X10'3 (1.8-7.7); NEUTROPHILS % (AUTO) 75.7 % (42-75); PLATELET COUNT 147 X10'3 (140-440); WHITE BLOOD COUNT 9.3 X10'3 (4.5-11.0)
[2020-06-12 02:15] LABS: ALBUMIN 2.6 G/DL (3.4-5.0); ANION GAP 13 (8-16); BLOOD UREA NITROGEN 97 MG/DL (7-18); BUN/CREATININE RATIO 5.7 (5.4-32.0); CALCIUM 8.2 MG/DL (8.5-10.1); CHLORIDE 97 MMOL/L (99-107); CREATININE 17.01 MG/DL (0.60-1.10); GLUCOSE 118 MG/DL (70-104); POTASSIUM 5.7 MMOL/L (3.5-5.1); SODIUM 136 MMOL/L (135-145); TOTAL CARBON DIOXIDE 26.5 MMOL/L (24-32); TROPONIN I 0.16 NG/ML (0.0-0.05); eGFR 3 ML/MIN
[2020-06-12 03:09] LABS: HEMATOCRIT 33.8 % (42.0-52.0); MEAN CORPUSCULAR HEMOGLOBIN 27.4 PG (27.0-31.0); MEAN CORPUSCULAR HGB CONC 32.5 g/dL (33.0-36.5); MEAN CORPUSCULAR VOLUME 84.4 FL (78-98); RED BLOOD COUNT 4.01 X10'6 (4.70-6.10); RED CELL DISTRIBUTION WIDTH 18.8 % (11.5-14.5)
[2020-06-12 05:29] LABS: ANISOCYTOSIS 2+; PLATELET ESTIMATE NORMAL
[2020-06-12 05:30] LABS: ELLIPTOCYTES FEW
--- NOTE | 2020-06-12 05:34 | NUR ---
orientee documentation: I have reviewed and agree with all interventions, assessments performed and documented by Alba FRIED.
--- NOTE | 2020-06-12 06:00 | NUR ---
Patient in room PCU 3009. I have received report from Joshua FRIED and Alba FRIED and had the opportunity to ask questions and assume patient care.
--- NOTE | 2020-06-12 06:00 | NUR ---
Patient in room PCU 3009. I have received report from FARIHA Willis and FARIHA Lewis and had the opportunity to ask questions and assume patient care.
--- NOTE | 2020-06-12 06:08 | NUR ---
Problems reprioritized. Patient report given, questions answered & plan of care reviewed with Zan Rn and Yanet FRIED.
[2020-06-12] MEDS: apixaban 5mg tablet PO SCH ×2 (09:11→19:59)
[2020-06-12] MEDS: amiodarone 200mg tablet PO SCH ×2 (09:57→20:00)
[2020-06-12] MEDS ORDERED: albumin (human) 25% 100ml IV 100 ML IV PRN (14:50)
[2020-06-12] MEDS: calcium acetate 667mg (phosLO) tablet PO SCH (17:00)
--- NOTE | 2020-06-12 18:00 | NUR ---
Problems reprioritized. Patient report given, questions answered & plan of care reviewed with Laura FRIED.
--- NOTE | 2020-06-12 18:00 | NUR ---
Orientee documentation: I have reviewed and agree with all interventions, assessments performed and documented by Yanet Win RN.
--- NOTE | 2020-06-12 18:07 | NUR ---
Problems reprioritized. Patient report given, questions answered & plan of care reviewed with FARIHA Sanchez.
--- NOTE | 2020-06-12 18:30 | NUR ---
Patient in room PCU 3009. I have received report from Alfreda FRIED and had the opportunity to ask questions and assume patient care.
[2020-06-12] MEDS ORDERED: normal saline 1000ml 1,000 ML IV ONE (21:00)
[2020-06-12] MEDS: sodium bicarbonate 650mg tablet PO SCH (21:00)
[2020-06-12] MEDS ORDERED: albumin (human) 25% 100 ML IV solution IV ONE (21:05)
[2020-06-12] MEDS: amiodarone/D5 360MG/200ML BAG 200 ML IV SCH (21:23)
--- NOTE | 2020-06-12 22:00 | NUR ---
PAGER ID: [phone] MESSAGE: [phone] Marcus Alejandra BP now 90/53 HR now 110-120 converted from NSR to Afib approx. 30 minutes ago. Pt is sleepy responds with eye opening to name and touch. 200mg PO amiodarone scheduled now would you like me to give or hold? [phone] Laura
[2020-06-13] VITALS (9 sets, daily range): BP systolic 87–245; BP diastolic 48–145
[2020-06-13] MEDS: amiodarone/D5 360MG/200ML BAG 200 ML IV SCH ×2 (03:35→23:37)
--- NOTE | 2020-06-13 05:05 | NUR ---
[address] Waterman, i received orders to hold po Amio amd eliquis d/t pt too lethargic to take it. recieved cpap prn, NS bolus of 250 and to call nephrology. Dr Trinidad gave orders for albumin x1 and to restart amiodarone gtt
--- NOTE | 2020-06-13 06:00 | NUR ---
Patient in room PCU 3009. I have received report from Laura FRIED and had the opportunity to ask questions and assume patient care.
--- NOTE | 2020-06-13 06:11 | NUR ---
Problems reprioritized. Patient report given, questions answered & plan of care reviewed with Zan and Jean RNs.
--- NOTE | 2020-06-13 06:21 | NUR ---
Patient in room PCU 3009. I have received report from FARIHA Sanchez and had the opportunity to ask questions and assume patient care.
[2020-06-13] MEDS: calcium acetate 667mg (phosLO) tablet PO SCH (07:00)
[2020-06-13 07:09] LABS: BASOPHILS % (AUTO) 0.2 % (0-1); EOSINOPHILS # (AUTO) 0.1 X10'3 (0-0.9); EOSINOPHILS % (AUTO) 1.3 % (0-6); HEMOGLOBIN 11.4 g/dl (14.0-17.9); LYMPHOCYTES # (AUTO) 0.8 X10'3 (1.1-4.8); LYMPHOCYTES % (AUTO) 8.2 % (21-51); MEAN CORPUSCULAR HGB CONC 29.9 g/dL (33.0-36.5); MEAN CORPUSCULAR VOLUME 90.3 FL (78-98); MEAN PLATELET VOLUME 7.5 FL (7.4-10.4); MONOCYTES # (AUTO) 1.3 X10'3 (0-0.9); MONOCYTES % (AUTO) 14.4 % (2-12); NEUTROPHILS # (AUTO) 7.1 X10'3 (1.8-7.7); NEUTROPHILS % (AUTO) 75.9 % (42-75); PLATELET COUNT 121 X10'3 (140-440); RED BLOOD COUNT 4.21 X10'6 (4.70-6.10); RED CELL DISTRIBUTION WIDTH 19.7 % (11.5-14.5); WHITE BLOOD COUNT 9.3 X10'3 (4.5-11.0)
[2020-06-13 07:27] LABS: ALBUMIN 2.9 G/DL (3.4-5.0); ANION GAP 11 (8-16); BLOOD UREA NITROGEN 51 MG/DL (7-18); BUN/CREATININE RATIO 5.1 (5.4-32.0); CALCIUM 8.5 MG/DL (8.5-10.1); CHLORIDE 103 MMOL/L (99-107); CREATININE 10.03 MG/DL (0.60-1.10); GLUCOSE 123 MG/DL (70-104); POTASSIUM 5.3 MMOL/L (3.5-5.1); SODIUM 143 MMOL/L (135-145); TOTAL CARBON DIOXIDE 28.8 MMOL/L (24-32); eGFR 5 ML/MIN
[2020-06-13] MEDS ORDERED: non-formulary drug (Ubidecarenone (Coq-10) 100 MG) PO SCH (08:00)
[2020-06-13] MEDS: furosemide 40mg tablet PO SCH (08:00)
[2020-06-13] MEDS: sodium bicarbonate 650mg tablet PO SCH ×3 (08:21→21:00)
[2020-06-13] MEDS: cholecalciferol (vitamin D3) 1,000 unit (25mcg) tablet PO SCH (08:22)
[2020-06-13] MEDS: lactobacillus rhamnosus 10,000 MMU CELLS/CAPSULE PO SCH (08:22)
[2020-06-13] MEDS: apixaban 5mg tablet PO SCH ×2 (08:22→20:00)
[2020-06-13] MEDS: vitamin B comp w/Vit. C tab 1 TAB TABLET PO SCH (08:22)
[2020-06-13] MEDS: calcitriol 0.25mcg capsule PO SCH (08:22)
[2020-06-13 08:37] LABS: ANISOCYTOSIS 2+; HYPOCHROMASIA 1+; PLATELET ESTIMATE DECREASED; POLYCHROMASIA 1+
[2020-06-13 08:38] LABS: ELLIPTOCYTES 1+; SCHISTOCYTES FEW
[2020-06-13] MEDS: amiodarone 200mg tablet PO SCH ×2 (10:08→20:00)
[2020-06-13] MEDS ORDERED: albumin (human) 25% 100ml IV 100 ML IV PRN (11:45)
[2020-06-13] MEDS ORDERED: heparin 1,000 units/ml 10ml inj HE ONE ×2 (11:50)
[2020-06-13] MEDS: calcium acetate 667mg (PhosLO) capsule PO SCH ×2 (12:00→19:04)
--- NOTE | 2020-06-13 13:19 | NUR ---
1200 PhosLO could not be administered because the pt didn't eat much lunch and the medication needs to be given with food.
[2020-06-13] MEDS ORDERED: ondansetron 4mg rapidly disintigrating tab PO PRN (15:55)
--- NOTE | 2020-06-13 18:00 | NUR ---
Problems reprioritized. Patient report given, questions answered & plan of care reviewed with Joshua FRIED and Alba FRIED.
--- NOTE | 2020-06-13 18:00 | NUR ---
Patient in room PCU 3009. I have received report from Yanet FRIED and Zan RN and had the opportunity to ask questions and assume patient care with Joshua FRIED.
--- NOTE | 2020-06-13 18:00 | NUR ---
Orientee documentation: I have reviewed and agree with all interventions, assessments performed and documented by Yanet Win RN
--- NOTE | 2020-06-13 18:18 | NUR ---
Problems reprioritized. Patient report given, questions answered & plan of care reviewed with FARIHA Allen and FARIHA Lewis.
--- NOTE | 2020-06-13 20:00 | NUR ---
Rapid Response Called Patient O2 saturation in the 70s. Patient placed on non-rebreather at 15L/min and pulled up in bed. Patient became more obtunded and less responsive to stimuli. O2 saturation remained in the 70s, heart rate in the 110-120s atrial fibrillation, blood pressure 147/87. Patient gasping and agonal breathing, respiration rate 17-20. Patient diaphoretic. Dr. Waterman and Dr. Irving notified. Chest x-ray, labs, and ABG drawn, patient placed on BiPap.
[2020-06-13 20:19] LABS: ABG BASE EXCESS -5.2 mmol/L (-2.0-2.0); ABG HCO3 31.3 mmol/L (22.0-26.0); ABG OXYGEN SATURATION 69.4 % (94-97); ABG PCO2 (T) > 171.0 mmHg (35.0-48.0); ABG PO2 (T) 45.1 mmHg (75.0-100.0); FCOHb 1.5 % (0.0-3.9); FMetHb 0.1 % (0.0-1.5); FO2Hb 68.3 % (94-97); PATIENT TEMPERATURE 36.3; TOTAL HEMOGLOBIN 12.6 G/dl (14.0-18.0)
--- NOTE | 2020-06-13 20:32 | NUR ---
Patient agonal breathing, blood pressure 70 systolic, bradycardic in PEA. Code blue activated.
[2020-06-13 20:38] LABS: BASOPHILS % (AUTO) 0.2 % (0-1); EOSINOPHILS % (AUTO) 0.5 % (0-6); LYMPHOCYTES # (AUTO) 1.1 X10'3 (1.1-4.8); MEAN PLATELET VOLUME 7.6 FL (7.4-10.4); MONOCYTES # (AUTO) 1.1 X10'3 (0-0.9); MONOCYTES % (AUTO) 11.5 % (2-12); NEUTROPHILS # (AUTO) 7.7 X10'3 (1.8-7.7); NEUTROPHILS % (AUTO) 76.8 % (42-75)
[2020-06-13 20:45] LABS: ALANINE AMINOTRANSFERASE 29 U/L (12-78); ALBUMIN 3.6 G/DL (3.4-5.0); ALBUMIN/GLOBULIN RATIO 0.9 (1.1-1.5); ALKALINE PHOSPHATASE 118 IU/L (46-116); ANION GAP 10 (8-16); ASPARTATE AMINO TRANSFERASE 18 U/L (10-37); BILIRUBIN,TOTAL 0.5 MG/DL (0.1-1.0); BLOOD UREA NITROGEN 35 MG/DL (7-18); BUN/CREATININE RATIO 4.7 (5.4-32.0); CHLORIDE 102 MMOL/L (99-107); CREATININE 7.42 MG/DL (0.60-1.10); GLUCOSE 135 MG/DL (70-104); POTASSIUM 4.5 MMOL/L (3.5-5.1); SODIUM 143 MMOL/L (135-145); TOTAL CARBON DIOXIDE 31.1 MMOL/L (24-32); TOTAL PROTEIN 7.6 G/DL (6.4-8.2); eGFR 7 ML/MIN
[2020-06-13] MEDS ORDERED: naloxone 0.4 mg/ml inj ONE (21:13)
[2020-06-13] MEDS ORDERED: albuterol 2.5 MG/3 ML nebule NEB STA (21:21)
[2020-06-13] MEDS ORDERED: EPINEPHRINE IV SCH (21:25)
[2020-06-13] MEDS ORDERED: LevETIRAcetam 1,000MG in NORMAL SALINE 100ml IV.SOLN IV ONE (21:25)
[2020-06-13] MEDS ORDERED: WATER IV SCH (21:25)
[2020-06-13] MEDS ORDERED: DEXTROSE 5% IV SCH (21:25)
[2020-06-13 21:31] LABS: OXYGEN SATURATION (MIXED VEN) 80.8 % (60-80); PO2 MIXED VENOUS (TEMP COR) 61.1 mmHg (35-46)
[2020-06-13 21:41] LABS: ABG BASE EXCESS -7.6 mmol/L (-2.0-2.0); ABG HCO3 26.2 mmol/L (22.0-26.0); ABG OXYGEN SATURATION 94.7 % (94-97); ABG PCO2 (T) 112.9 mmHg (35.0-48.0); ABG PO2 (T) 91.1 mmHg (75.0-100.0); FCOHb 1.1 % (0.0-3.9); FMetHb 0.2 % (0.0-1.5); FO2Hb 93.5 % (94-97); PEEP 10 cm H2O; RESPIRATORY RATE 20 b/min; TOTAL HEMOGLOBIN 11.5 G/dl (14.0-18.0)
[2020-06-13] MEDS ORDERED: sodium bicarbonate (8.4%) 1 mEq/ml syringe ONE (21:42)
[2020-06-13] MEDS ORDERED: nitroGLYCERIN-Tridil 50MG/D5W 250 ML IV ONE (21:47)
[2020-06-13] MEDS ORDERED: propofol 1000mg/100ml bottle 100 ML IV ONE (21:57)
[2020-06-13] MEDS ORDERED: dexmedetomidin/NS 400mcg/100ml 100 ML IV PRN (22:00)
[2020-06-13] MEDS: propofol 1000mg/100ml bottle 100 ML IV SCH (22:00)
[2020-06-13 22:08] LABS: ALANINE AMINOTRANSFERASE 40 U/L (12-78); ALBUMIN 3.1 G/DL (3.4-5.0); ALBUMIN/GLOBULIN RATIO 0.9 (1.1-1.5); ALKALINE PHOSPHATASE 127 IU/L (46-116); ANION GAP 15 (8-16); ASPARTATE AMINO TRANSFERASE 35 U/L (10-37); BILIRUBIN,TOTAL 0.5 MG/DL (0.1-1.0); BLOOD UREA NITROGEN 36 MG/DL (7-18); BUN/CREATININE RATIO 4.6 (5.4-32.0); CALCIUM 9.6 MG/DL (8.5-10.1); CHLORIDE 102 MMOL/L (99-107); CREATININE 7.77 MG/DL (0.60-1.10); GLUCOSE 142 MG/DL (70-104); MAGNESIUM 2.5 MG/DL (1.5-2.4); POTASSIUM 4.7 MMOL/L (3.5-5.1); SODIUM 144 MMOL/L (135-145); TOTAL PROTEIN 6.4 G/DL (6.4-8.2); eGFR 7 ML/MIN
[2020-06-13] MEDS ORDERED: dexmedetomidine/D5W 100mL 100 ML IV PRN (22:20)
[2020-06-13] MEDS ORDERED: NOREPINEPHRINE BITARTRATE/D5W 250 ML IV ONE (22:24)
[2020-06-13] MEDS ORDERED: rocuronium 10mg/ml inj IV ONE (22:25)
[2020-06-13] MEDS: epiNEPHrine inj 5 MG in normal saline 250ml IV soln 245 ML IV SCH (22:45)
[2020-06-13 22:54] LABS: ABG BASE EXCESS -9.2 mmol/L (-2.0-2.0); ABG HCO3 22.1 mmol/L (22.0-26.0); ABG PCO2 (T) 76.8 mmHg (35.0-48.0); ABG PO2 (T) 43.1 mmHg (75.0-100.0); FCOHb 1.2 % (0.0-3.9); FMetHb 0.1 % (0.0-1.5); PEEP 12 cm H2O; RESPIRATORY RATE 30 b/min; TOTAL HEMOGLOBIN 11.7 G/dl (14.0-18.0)
[2020-06-13] MEDS ORDERED: amiodarone 150mg/dext, iso-os 100 ML IV ONE (23:20)
[2020-06-13] MEDS ORDERED: vancomycin/NS 1 GM ADD-VANTAGE 250 ML IV ONE (23:50)
[2020-06-14] VITALS (21 sets, daily range): BP systolic 92–156; BP diastolic 45–102
--- NOTE | 2020-06-14 | NUR ---
[id number]: Patient in room ICU 2041. I have received report from FARIHA Mejia and had the opportunity to ask questions and assume patient care. Patient is intubated on A/C PC 100% FiO2 with Pressure support of 37, rate of 32, PEEP 12. Lung sounds are diminished on the right and absent on the left. Patient continues to have low tidal volumes and oxygen saturation 88%. Patient placed on his right side with increase in oxygen saturation to the 90's. Some improvement on tidal volume. Patient is requiring support of vasoactive medications Levophed, Vasopressin and Epinephrine, see IV spreadsheet. Patient is moving his arms and legs will bite ET Tube when turning. Does not follow commands. patient is sedated with Propofol per MD order. heart rate atrial fibrillation - currently on amiodarone drip. Repeat x-ray and ABG per MD order. Patients and brother are at bedside.
--- NOTE | 2020-06-14 00:03 | NUR ---
[id number] called to Rapid response, pt is diaphoretic unresponsive, respitory rate less then 6 abg obtained, due to ABG results call placed to Dr. Vargas and ER Doctor Aristides for intubation, before pt could be intubated he became pulse less CPR started at 2031. pt received multiple rounds of EPI, 1 amp sodium bicarb and 1 amp calcium. pt intubated at 2036, final pulse check at 2043 ST rate in the 140's, at 2046 pt had left side seizure like activity lasting 30 sec, 1 gram Keppra ordered, at approx 2049 pt had bilateral seizure like activity. OG placed 200 ml blood tinged substance in return. 2109 pt transferred to ICU. pt placed on monitor Dr Vargas at bedside, RT femoral art line placed. Multiple ventilator settings changed per Dr. Vargas, Ok to access HD cath, ABG, Mixed chris obtained, Labs sent for analysis. [address] Cason request as pt did not have much taken off during hd. 2142 2 amps sodium bicarb given per md orders due to poor ABG post intubation Start tridil drip to keep CVP less then 15. 2159 pts eyes are pin point Narcan administered per dr Doty without any changes in pts condition. 2224 pts sbp less then 78 Levophed drip started. At approximally 0 pts heart rate became irregular rate down to lower 30, pt was pulses less, CPR initiated. Dr. Arambula at bedside via [place], 3 rounds of Epi given, pulse check at [address] rate 150's Multiple ventilator changes per Dr. Arambula, another ABG and additional chest xray obtained. 5 Rocuronium given and pt placed on right side to keep left lung up. Call placed to pts who came in to see pt. Report to FARIHA Guzman.
[2020-06-14] MEDS ORDERED: vasopressin inj. 40 UNIT in normal saline 50ml IV soln 38 ML IV SCH ×2 (00:10→00:15)
[2020-06-14 00:24] LABS: WHITE BLOOD COUNT 11.2 X10'3 (4.5-11.0)
[2020-06-14 00:25] LABS: HEMATOCRIT 42.5 % (42.0-52.0); HEMOGLOBIN 13.1 g/dl (14.0-17.9)
[2020-06-14 00:26] LABS: RED BLOOD COUNT 4.88 X10'6 (4.70-6.10)
[2020-06-14 00:28] LABS: MEAN CORPUSCULAR HEMOGLOBIN 26.9 PG (27.0-31.0); MEAN CORPUSCULAR VOLUME 87.2 FL (78-98)
[2020-06-14 00:29] LABS: MEAN CORPUSCULAR HGB CONC 30.8 g/dL (33.0-36.5); PLATELET COUNT 149 X10'3 (140-440); RED CELL DISTRIBUTION WIDTH 18.8 % (11.5-14.5)
--- NOTE | 2020-06-14 01:00 | NUR ---
orientee documentation: I have reviewed and agree with all interventions, assessments performed and documented by lAba FRIED .
[2020-06-14] MEDS: epiNEPHrine inj 5 MG in normal saline 250ml IV soln 245 ML IV SCH ×2 (01:34→09:09)
[2020-06-14 02:00] LABS: BASOPHILS % (AUTO) 0.1 % (0-1); EOSINOPHILS % (AUTO) 0 % (0-6); LYMPHOCYTES # (AUTO) 0.3 X10'3 (1.1-4.8)
[2020-06-14 02:02] LABS: ALBUMIN 2.7 G/DL (3.4-5.0); ANION GAP 15 (8-16); BLOOD UREA NITROGEN 41 MG/DL (7-18); BUN/CREATININE RATIO 5.5 (5.4-32.0); CALCIUM 8.9 MG/DL (8.5-10.1); CHLORIDE 102 MMOL/L (99-107); CREATININE 7.51 MG/DL (0.60-1.10); GLUCOSE 176 MG/DL (70-104); LYMPHOCYTES % (AUTO) 1.8 % (21-51); MAGNESIUM 2.1 MG/DL (1.5-2.4); MONOCYTES # (AUTO) 0.4 X10'3 (0-0.9); MONOCYTES % (AUTO) 2.4 % (2-12); NEUTROPHILS # (AUTO) 15.1 X10'3 (1.8-7.7); NEUTROPHILS % (AUTO) 95.7 % (42-75); SODIUM 142 MMOL/L (135-145); TOTAL CARBON DIOXIDE 25.5 MMOL/L (24-32); TRIGLYCERIDES 70 MG/DL (20-135); eGFR 7 ML/MIN
[2020-06-14 02:03] LABS: POTASSIUM 4.7 MMOL/L (3.5-5.1)
[2020-06-14 02:47] LABS: HEMATOCRIT 38.2 % (42.0-52.0); HEMOGLOBIN 11.7 g/dl (14.0-17.9); MEAN CORPUSCULAR HEMOGLOBIN 26.6 PG (27.0-31.0); MEAN CORPUSCULAR HGB CONC 30.7 g/dL (33.0-36.5); MEAN CORPUSCULAR VOLUME 86.5 FL (78-98); RED BLOOD COUNT 4.42 X10'6 (4.70-6.10); RED CELL DISTRIBUTION WIDTH 18.8 % (11.5-14.5); WHITE BLOOD COUNT 17.3 X10'3 (4.5-11.0)
[2020-06-14 02:48] LABS: PLATELET COUNT 139 X10'3 (140-440)
[2020-06-14 03:15] LABS: ABG BASE EXCESS -5.7 mmol/L (-2.0-2.0); ABG HCO3 21.1 mmol/L (22.0-26.0); ABG OXYGEN SATURATION 87.8 % (94-97); ABG PCO2 (T) 42.9 mmHg (35.0-48.0); ABG PO2 (T) 47.7 mmHg (75.0-100.0); FCOHb 0.7 % (0.0-3.9); FO2Hb 87.2 % (94-97); PATIENT TEMPERATURE 35.1; PEEP 12 cm H2O; RESPIRATORY RATE 32 b/min; TOTAL HEMOGLOBIN 11.8 G/dl (14.0-18.0)
[2020-06-14] MEDS: amiodarone/D5 360MG/200ML BAG 200 ML IV SCH ×4 (04:35→23:36)
[2020-06-14] MEDS ORDERED: NOREPINEPHRINE BITARTRATE/D5W 250 ML IV ONE (04:42)
[2020-06-14] MEDS: NOREPINEPHRINE BITARTRATE/D5W 250 ML IV SCH ×2 (04:51→09:13)
--- NOTE | 2020-06-14 05:57 | NUR ---
Dr. Bhatti notified of trending troponin levels to 0.24. Order for 12-lead ECG.
--- NOTE | 2020-06-14 06:15 | NUR ---
Dr. Bhatti called re seizure activity. patient moving all extremities with repetitive motion with activity every 0.5 - 1 second. Pupils are non reactive. MD will place order for 5 mg of Ativan.
[2020-06-14] MEDS ORDERED: LORazepam 2 mg/ml vial ONE (06:17)
--- NOTE | 2020-06-14 06:17 | NUR ---
Problems reprioritized. Patient report given, questions answered & plan of care reviewed with FARIHA Campbell.
[2020-06-14] MEDS ORDERED: LORazepam 2 mg/ml vial IV ONE (06:20)
[2020-06-14 06:30] LABS: ANISOCYTOSIS 2+; PLATELET ESTIMATE DECREASED; TOTAL CELLS COUNTED 100
[2020-06-14 06:31] LABS: ELLIPTOCYTES 1+; TEAR DROP CELLS FEW
--- NOTE | 2020-06-14 06:33 | NUR ---
Dr. Bhatti saw pt via telemedicine. received orders for Keppra. pt not seizing currently but is showing decorticate posturing.
[2020-06-14 06:36] LABS: EOSINOPHILS # (AUTO) 0.1 X10'3 (0-0.9)
[2020-06-14 06:44] LABS: BASOPHILS % (AUTO) 0.3 % (0-1); EOSINOPHILS % (AUTO) 1.1 % (0-6); LYMPHOCYTES # (AUTO) 1.4 X10'3 (1.1-4.8); LYMPHOCYTES % (AUTO) 12.3 % (21-51); MEAN CORPUSCULAR HGB CONC 28.7 g/dL (33.0-36.5); MONOCYTES # (AUTO) 0.8 X10'3 (0-0.9); NEUTROPHILS # (AUTO) 9.1 X10'3 (1.8-7.7); NEUTROPHILS % (AUTO) 79.3 % (42-75); WHITE BLOOD COUNT 11.5 X10'3 (4.5-11.0)
[2020-06-14 07:12] LABS: HEMATOCRIT 41.1 % (42.0-52.0); HEMOGLOBIN 11.8 g/dl (14.0-17.9); RED BLOOD COUNT 4.36 X10'6 (4.70-6.10)
[2020-06-14 07:13] LABS: MEAN CORPUSCULAR HEMOGLOBIN 27.1 PG (27.0-31.0); MEAN CORPUSCULAR VOLUME 94.2 FL (78-98); MEAN PLATELET VOLUME 8.2 FL (7.4-10.4); PLATELET COUNT 139 X10'3 (140-440); RED CELL DISTRIBUTION WIDTH 18.9 % (11.5-14.5)
[2020-06-14] MEDS: sodium bicarbonate 650mg tablet PO SCH ×2 (07:34→12:16)
[2020-06-14] MEDS: apixaban 5mg tablet PO SCH (07:34)
[2020-06-14] MEDS: calcium acetate 667mg (PhosLO) capsule PO SCH ×2 (07:34→12:16)
[2020-06-14] MEDS: vitamin B comp w/Vit. C tab 1 TAB TABLET PO SCH (07:35)
[2020-06-14] MEDS: calcitriol 0.25mcg capsule PO SCH (07:35)
[2020-06-14] MEDS: furosemide 40mg tablet PO SCH (07:35)
[2020-06-14] MEDS: cholecalciferol (vitamin D3) 1,000 unit (25mcg) tablet PO SCH (07:35)
[2020-06-14] MEDS: pantoprazole 40 MG vial IV SCH (07:36)
[2020-06-14] MEDS: piperacillin/tazo 3.375gm/50ml 50 ML IV SCH ×2 (07:36→21:02)
[2020-06-14] MEDS: amiodarone 200mg tablet PO SCH (07:38)
[2020-06-14] MEDS ORDERED: levetiracetam 100mg/ml oral solution 5ml UD cup PO SCH (08:00)
[2020-06-14] MEDS: lactobacillus rhamnosus 10,000 MMU CELLS/CAPSULE PO SCH (08:17)
[2020-06-14] MEDS: propofol 1000mg/100ml bottle 100 ML IV SCH (09:14)
--- NOTE | 2020-06-14 10:03 | NUR ---
TF/Alireza Consults: Pt intubated s/p cardiac arrest, shock, ARDS, and possible aspiration per MD note. Hx ESRD on PD failed now on HD this admit per MD note. PO 50-75% initial renal diet meals declined to ~25% yesterday prior to code. MAP 73 w/ OG in place this AM and TF to start today per structural metal fabricator apprentice. LBM 06/10; would benefit from bowel care w/ EN to stimulate GI as well. Alireza 9 w/ skin intact per EMR. Will monitor for nutrition support tolerance and adjustment needs on vent. Rec: 1. TF per MD using Vital High Protein at 85ml/hr goal; to provide 2040ml volume, 1714ml free water, 2040 kcals, and 179g protein. 2. additional free water per structural metal fabricator apprentice on HD 3. PALB Q /; daily wts 4. routine bowel care; Phoslo w/ EN per MD 5. upon extubation; advance diet as medically indicated to renal Addendum: 06/14/20 at [address] Amended: Links added.
--- NOTE | 2020-06-14 10:32 | NUR ---
tube feed started at 30cc/hr vital hp
[2020-06-14 10:52] LABS: ABG BASE EXCESS -3.2 mmol/L (-2.0-2.0); ABG HCO3 17.4 mmol/L (22.0-26.0); ABG OXYGEN SATURATION 95.9 % (94-97); ABG PCO2 (T) 20.6 mmHg (35.0-48.0); ABG PO2 (T) 72.7 mmHg (75.0-100.0); FCOHb 0.2 % (0.0-3.9); FO2Hb 95.7 % (94-97); PATIENT TEMPERATURE 37.8; PEEP 12 cm H2O; RESPIRATORY RATE 18 b/min; TIDAL VOLUME 757 mL; TOTAL HEMOGLOBIN 10.8 G/dl (14.0-18.0)
[2020-06-14 11:01] LABS: HBSAG SCREEN Negative (Negative)
[2020-06-14 11:15] LABS: EOSINOPHILS % (AUTO) 0 % (0-6); LYMPHOCYTES # (AUTO) 0.6 X10'3 (1.1-4.8)
[2020-06-14 11:17] LABS: BASOPHILS % (AUTO) 0 % (0-1); HEMATOCRIT 33.5 % (42.0-52.0); HEMOGLOBIN 10.2 g/dl (14.0-17.9); LYMPHOCYTES % (AUTO) 2.6 % (21-51); MEAN CORPUSCULAR HEMOGLOBIN 26.3 PG (27.0-31.0); MEAN CORPUSCULAR HGB CONC 30.3 g/dL (33.0-36.5); MEAN CORPUSCULAR VOLUME 86.9 FL (78-98); MEAN PLATELET VOLUME 7.7 FL (7.4-10.4); MONOCYTES # (AUTO) 1.3 X10'3 (0-0.9); MONOCYTES % (AUTO) 5.8 % (2-12); NEUTROPHILS # (AUTO) 20.8 X10'3 (1.8-7.7); NEUTROPHILS % (AUTO) 91.6 % (42-75); PLATELET COUNT 137 X10'3 (140-440); RED BLOOD COUNT 3.86 X10'6 (4.70-6.10); RED CELL DISTRIBUTION WIDTH 19.1 % (11.5-14.5); WHITE BLOOD COUNT 22.7 X10'3 (4.5-11.0)
[2020-06-14 11:37] LABS: ALANINE AMINOTRANSFERASE 39 U/L (12-78); ALBUMIN 2.5 G/DL (3.4-5.0); ALBUMIN/GLOBULIN RATIO 0.9 (1.1-1.5); ALKALINE PHOSPHATASE 92 IU/L (46-116); ANION GAP 16 (8-16); ASPARTATE AMINO TRANSFERASE 37 U/L (10-37); BILIRUBIN,TOTAL 0.8 MG/DL (0.1-1.0); BLOOD UREA NITROGEN 45 MG/DL (7-18); BUN/CREATININE RATIO 5.8 (5.4-32.0); CALCIUM 8.9 MG/DL (8.5-10.1); CHLORIDE 102 MMOL/L (99-107); CREATININE 7.73 MG/DL (0.60-1.10); GLUCOSE 164 MG/DL (70-104); MAGNESIUM 1.8 MG/DL (1.5-2.4); PHOSPHORUS 2.7 MG/DL (2.3-4.5); POTASSIUM 4.2 MMOL/L (3.5-5.1); SODIUM 141 MMOL/L (135-145); TOTAL CARBON DIOXIDE 23.5 MMOL/L (24-32); TOTAL PROTEIN 5.4 G/DL (6.4-8.2); eGFR 7 ML/MIN
[2020-06-14] MEDS ORDERED: acetaminophen 325mg/10.15ml oral unit dose solution OGT PRN (13:19)
[2020-06-14] MEDS ORDERED: amiodarone 200mg tablet OGT SCH (13:19)
[2020-06-14] MEDS ORDERED: furosemide 40mg tablet OGT SCH (13:20)
[2020-06-14] MEDS ORDERED: magnesium hydroxide 30ml (MOM) UD suspension OGT PRN (13:21)
[2020-06-14] MEDS ORDERED: ondansetron 4mg rapidly disintigrating tab OGT PRN (13:21)
[2020-06-14] MEDS ORDERED: mag hydrox/Alum hydrox/simeth 30ml oral suspension OGT PRN (13:21)
[2020-06-14] MEDS ORDERED: NORepinephrine 8mg/ 250ml NS 250 ML IV SCH (16:07)
[2020-06-14 16:15] LABS: ABG BASE EXCESS -1.3 mmol/L (-2.0-2.0); ABG HCO3 23.8 mmol/L (22.0-26.0); ABG OXYGEN SATURATION 96.1 % (94-97); ABG PCO2 (T) 43.3 mmHg (35.0-48.0); ABG PO2 (T) 97.2 mmHg (75.0-100.0); FCOHb 0.3 % (0.0-3.9); FMetHb 0.3 % (0.0-1.5); FO2Hb 95.5 % (94-97); PATIENT TEMPERATURE 38.2; PEEP 5 cm H2O; RESPIRATORY RATE 12 b/min; TIDAL VOLUME 550 mL; TOTAL HEMOGLOBIN 10.6 G/dl (14.0-18.0)
--- NOTE | 2020-06-14 18:20 | NUR ---
Patient in room ICU 2041. I have received report from FARIHA Campbell and had the opportunity to ask questions and assume patient care.
[2020-06-14] MEDS: calcium acetate 667mg (PhosLO) capsule OGT SCH (19:05)
[2020-06-14 19:16] LABS: ABG BASE EXCESS 0.3 mmol/L (-2.0-2.0); ABG HCO3 26.6 mmol/L (22.0-26.0); ABG OXYGEN SATURATION 94.8 % (94-97); FCOHb 0.4 % (0.0-3.9); FMetHb 0.3 % (0.0-1.5); FO2Hb 94.1 % (94-97); PEEP 5 cm H2O; RESPIRATORY RATE 12 b/min; TIDAL VOLUME 550 mL; TOTAL HEMOGLOBIN 11.1 G/dl (14.0-18.0)
[2020-06-14] MEDS: levetiracetam 100mg/ml oral solution 5ml UD cup OGT SCH (21:02)
[2020-06-14] MEDS: apixaban 5mg tablet OGT SCH (21:02)
[2020-06-14] MEDS: sodium bicarbonate 650mg tablet OGT SCH (21:03)
[2020-06-14 22:25] LABS: ALANINE AMINOTRANSFERASE 37 U/L (12-78); ALBUMIN 2.4 G/DL (3.4-5.0); ALBUMIN/GLOBULIN RATIO 0.8 (1.1-1.5); ALKALINE PHOSPHATASE 90 IU/L (46-116); ANION GAP 12 (8-16); ASPARTATE AMINO TRANSFERASE 26 U/L (10-37); BILIRUBIN,TOTAL 0.5 MG/DL (0.1-1.0); BLOOD UREA NITROGEN 54 MG/DL (7-18); BUN/CREATININE RATIO 6.6 (5.4-32.0); CALCIUM 8.8 MG/DL (8.5-10.1); CHLORIDE 100 MMOL/L (99-107); CREATININE 8.17 MG/DL (0.60-1.10); GLUCOSE 205 MG/DL (70-104); MAGNESIUM 1.9 MG/DL (1.5-2.4); POTASSIUM 4.3 MMOL/L (3.5-5.1); SODIUM 139 MMOL/L (135-145); TOTAL CARBON DIOXIDE 26.6 MMOL/L (24-32); TOTAL PROTEIN 5.4 G/DL (6.4-8.2); eGFR 7 ML/MIN
[2020-06-15] VITALS (23 sets, daily range): BP systolic 83–129; BP diastolic 53–85
[2020-06-15] MEDS ORDERED: PHENYLephrine 10mg/ml inj. 100 MG in normal saline 250ml IV soln 240 ML IV SCH (00:20)
--- NOTE | 2020-06-15 00:24 | NUR ---
Dr. Muller called re patients heart rate of 120-160's atrial fibrillation. Patient is currently on a Amiodarone drip. Patient is also currently on Levophed for blood pressure support. MD will place orders for phenylephrine drip and will discontinue all other vasoactive medication. Addressed patient peak pressure alarming on the ventilator with a plateau pressure greater than 33. Vent settings reviewed with MD no changes at this time.
[2020-06-15 00:46] LABS: ABG HCO3 26.2 mmol/L (22.0-26.0); ABG OXYGEN SATURATION 96.7 % (94-97); ABG PCO2 (T) 44.7 mmHg (35.0-48.0); ABG PO2 (T) 93.2 mmHg (75.0-100.0); FCOHb 0.1 % (0.0-3.9); FMetHb 0.1 % (0.0-1.5); FO2Hb 96.5 % (94-97); PATIENT TEMPERATURE 37.4; PEEP 5 cm H2O; RESPIRATORY RATE 14 b/min; TIDAL VOLUME 550 mL; TOTAL HEMOGLOBIN 10.4 G/dl (14.0-18.0)
[2020-06-15] MEDS: PHENYLephrine 10mg/ml inj. 50 MG in normal saline 250ml IV soln 245 ML IV SCH ×2 (01:31→14:00)
[2020-06-15] MEDS: propofol 1000mg/100ml bottle 100 ML IV SCH ×2 (01:32→13:59)
[2020-06-15] MEDS: VANCOMYCIN LEVEL IV SCH (02:53)
[2020-06-15] MEDS: mineral oil/petrolatum ophthal oint EACHEYE SCH ×4 (03:02→19:54)
[2020-06-15] MEDS: amiodarone/D5 360MG/200ML BAG 200 ML IV SCH ×4 (03:03→23:52)
[2020-06-15 03:21] LABS: MONOCYTES # (AUTO) 0.8 X10'3 (0-0.9); NEUTROPHILS # (AUTO) 13.2 X10'3 (1.8-7.7); NEUTROPHILS % (AUTO) 85.9 % (42-75); PLATELET COUNT 143 X10'3 (140-440); WHITE BLOOD COUNT 15.4 X10'3 (4.5-11.0)
[2020-06-15 03:22] LABS: BASOPHILS % (AUTO) 0 % (0-1); EOSINOPHILS % (AUTO) 0.1 % (0-6); HEMATOCRIT 30.7 % (42.0-52.0); HEMOGLOBIN 9.2 g/dl (14.0-17.9); LYMPHOCYTES # (AUTO) 1.4 X10'3 (1.1-4.8); LYMPHOCYTES % (AUTO) 9.1 % (21-51); MEAN CORPUSCULAR HGB CONC 30.1 g/dL (33.0-36.5); MEAN CORPUSCULAR VOLUME 86.6 FL (78-98); MONOCYTES % (AUTO) 4.9 % (2-12); RED BLOOD COUNT 3.54 X10'6 (4.70-6.10); RED CELL DISTRIBUTION WIDTH 19.6 % (11.5-14.5)
[2020-06-15 03:34] LABS: ALBUMIN 2.2 G/DL (3.4-5.0); ANION GAP 16 (8-16); BLOOD UREA NITROGEN 61 MG/DL (7-18); BUN/CREATININE RATIO 7.5 (5.4-32.0); CALCIUM 8.7 MG/DL (8.5-10.1); CHLORIDE 99 MMOL/L (99-107); CREATININE 8.17 MG/DL (0.60-1.10); GLUCOSE 167 MG/DL (70-104); SODIUM 139 MMOL/L (135-145); TOTAL CARBON DIOXIDE 24.5 MMOL/L (24-32); VANCOMYCIN,RANDOM 11.5 UG/ML; eGFR 7 ML/MIN
--- NOTE | 2020-06-15 06:19 | NUR ---
Problems reprioritized. Patient report given, questions answered & plan of care reviewed with FARIHA Campbell.
[2020-06-15 06:43] LABS: ANISOCYTOSIS 2+; HYPOCHROMASIA 1+; PLATELET ESTIMATE DECREASED
[2020-06-15 06:44] LABS: SCHISTOCYTES FEW
[2020-06-15] MEDS ORDERED: vancomycin/NS 1 GM ADD-VANTAGE 250 ML IV ONE (06:50)
[2020-06-15] MEDS ORDERED: vancomycin/NS 1 GM ADD-VANTAGE 250 ML IV PRN (06:50)
[2020-06-15] MEDS: dexmedetomidine/D5W 100mL 100 ML IV PRN ×4 (07:23→23:31)
[2020-06-15] MEDS: sodium bicarbonate 650mg tablet OGT SCH ×3 (08:00→20:03)
[2020-06-15] MEDS: calcitriol 0.25mcg capsule PO SCH (08:00)
[2020-06-15] MEDS: cholecalciferol (vitamin D3) 1,000 unit (25mcg) tablet OGT SCH (08:30)
[2020-06-15] MEDS: vitamin B comp w/Vit. C tab 1 TAB TABLET PO SCH (08:30)
[2020-06-15] MEDS: pantoprazole 40 MG vial IV SCH (08:30)
[2020-06-15] MEDS: lactobacillus rhamnosus 10,000 MMU CELLS/CAPSULE OGT SCH (08:31)
[2020-06-15] MEDS: apixaban 5mg tablet OGT SCH ×2 (08:31→19:54)
[2020-06-15] MEDS: levetiracetam 100mg/ml oral solution 5ml UD cup OGT SCH ×2 (08:31→19:54)
[2020-06-15] MEDS: piperacillin/tazo 3.375gm/50ml 50 ML IV SCH ×2 (08:32→19:54)
[2020-06-15] MEDS: calcium acetate 667mg (PhosLO) capsule OGT SCH ×4 (08:37→19:31)
[2020-06-15] MEDS ORDERED: amiodarone 50MG/ML inj IV ONE (13:00)
[2020-06-15] MEDS: midodrine 5mg tablet PO SCH (15:28)
[2020-06-15 15:29] LABS: ABG BASE EXCESS -1.9 mmol/L (-2.0-2.0); ABG OXYGEN SATURATION 96.2 % (94-97); ABG PCO2 (T) 40.5 mmHg (35.0-48.0); ABG PO2 (T) 92.4 mmHg (75.0-100.0); FCOHb 0.3 % (0.0-3.9); FMetHb 0.2 % (0.0-1.5); FO2Hb 95.7 % (94-97); PATIENT TEMPERATURE 37.4; PEEP 5 cm H2O; RESPIRATORY RATE 14 b/min; TIDAL VOLUME 550 mL; TOTAL HEMOGLOBIN 9.5 G/dl (14.0-18.0)
[2020-06-15] MEDS ORDERED: heparin 1,000 units/ml 10ml inj IV ONE (16:05)
[2020-06-15] MEDS ORDERED: heparin 1,000unit/ml 10ml vial 10 ML IV ONE (16:05)
[2020-06-15] MEDS ORDERED: heparin 1,000 units/ml 10ml inj HE ONE (16:10)
--- NOTE | 2020-06-15 17:09 | NUR ---
pt placed on cpap per md order. pt tolerated only 30 minutes approx. pt had TV of 200-300 consistent, restless. pt switched back to AC/VC
--- NOTE | 2020-06-15 18:20 | NUR ---
Patient in room ICU 2041. I have received report from FARIHA Campbell and had the opportunity to ask questions and assume patient care.
[2020-06-16] VITALS (23 sets, daily range): BP systolic 88–136; BP diastolic 45–90
--- NOTE | 2020-06-16 00:30 | NUR ---
Patient placed on spontaneous mode on ventilator per MD order. Patient with decreased tidal volumes to 200's, respiratory rate to 26, patient very restless. Patient does open eyes, follows commands, moves all extremities. Patient very restless, ventilator back to AC/VC rate of 14 FiO2 40%.
[2020-06-16] MEDS: amiodarone/D5 360MG/200ML BAG 200 ML IV SCH ×4 (02:32→21:41)
[2020-06-16] MEDS: mineral oil/petrolatum ophthal oint EACHEYE SCH ×4 (02:33→19:57)
[2020-06-16 03:00] LABS: OXYGEN SATURATION (MIXED VEN) 63.2 % (60-80); PO2 MIXED VENOUS (TEMP COR) 34.8 mmHg (35-46)
[2020-06-16] MEDS: VANCOMYCIN LEVEL IV SCH (03:00)
[2020-06-16 03:03] LABS: ABG BASE EXCESS -1.2 mmol/L (-2.0-2.0); ABG HCO3 23.3 mmol/L (22.0-26.0); ABG OXYGEN SATURATION 97.6 % (94-97); ABG PO2 (T) 112.7 mmHg (75.0-100.0); FCOHb 0.2 % (0.0-3.9); FO2Hb 97.4 % (94-97); PATIENT TEMPERATURE 37.5; PEEP 5 cm H2O; RESPIRATORY RATE 14 b/min; TIDAL VOLUME 550 mL; TOTAL HEMOGLOBIN 9.9 G/dl (14.0-18.0)
[2020-06-16 03:42] LABS: BASOPHILS % (AUTO) 0.2 % (0-1); EOSINOPHILS # (AUTO) 0.4 X10'3 (0-0.9); HEMATOCRIT 30.1 % (42.0-52.0); HEMOGLOBIN 9.3 g/dl (14.0-17.9); LYMPHOCYTES # (AUTO) 1.5 X10'3 (1.1-4.8); LYMPHOCYTES % (AUTO) 8.7 % (21-51); MEAN CORPUSCULAR HEMOGLOBIN 26.2 PG (27.0-31.0); MEAN CORPUSCULAR HGB CONC 30.7 g/dL (33.0-36.5); MEAN CORPUSCULAR VOLUME 85.2 FL (78-98); MEAN PLATELET VOLUME 7.9 FL (7.4-10.4); MONOCYTES % (AUTO) 5.8 % (2-12); NEUTROPHILS # (AUTO) 14.5 X10'3 (1.8-7.7); NEUTROPHILS % (AUTO) 83.3 % (42-75); PLATELET COUNT 141 X10'3 (140-440); RED BLOOD COUNT 3.54 X10'6 (4.70-6.10); RED CELL DISTRIBUTION WIDTH 19.4 % (11.5-14.5); WHITE BLOOD COUNT 17.5 X10'3 (4.5-11.0)
[2020-06-16 03:46] LABS: ALANINE AMINOTRANSFERASE 85 U/L (12-78); ALBUMIN 2.1 G/DL (3.4-5.0); ALBUMIN/GLOBULIN RATIO 0.6 (1.1-1.5); ALKALINE PHOSPHATASE 437 IU/L (46-116); ANION GAP 14 (8-16); ASPARTATE AMINO TRANSFERASE 103 U/L (10-37); BILIRUBIN,TOTAL 0.8 MG/DL (0.1-1.0); BLOOD UREA NITROGEN 85 MG/DL (7-18); BUN/CREATININE RATIO 9.9 (5.4-32.0); CALCIUM 8.6 MG/DL (8.5-10.1); CHLORIDE 96 MMOL/L (99-107); CREATININE 8.59 MG/DL (0.60-1.10); GLUCOSE 134 MG/DL (70-104); POTASSIUM 4.9 MMOL/L (3.5-5.1); SODIUM 136 MMOL/L (135-145); TOTAL CARBON DIOXIDE 25.9 MMOL/L (24-32); TOTAL PROTEIN 5.6 G/DL (6.4-8.2); VANCOMYCIN,RANDOM 20.9 UG/ML; eGFR 6 ML/MIN
[2020-06-16] MEDS: FENTANYL-0.9 % NACL/PF 100 ML IV PRN (05:12)
[2020-06-16] MEDS: propofol 1000mg/100ml bottle 100 ML IV SCH (05:12)
--- NOTE | 2020-06-16 05:30 | NUR ---
CPAP/PS trial per MD order started.
[2020-06-16] MEDS: dexmedetomidine/D5W 100mL 100 ML IV PRN ×3 (06:02→18:01)
--- NOTE | 2020-06-16 06:26 | NUR ---
Problems reprioritized. Patient report given, questions answered & plan of care reviewed with FARIHA Allen.
[2020-06-16] MEDS: calcitriol 0.25mcg capsule PO SCH (08:00)
[2020-06-16] MEDS: piperacillin/tazo 3.375gm/50ml 50 ML IV SCH ×2 (08:00→19:57)
[2020-06-16] MEDS: cholecalciferol (vitamin D3) 1,000 unit (25mcg) tablet OGT SCH (08:00)
[2020-06-16] MEDS: sodium bicarbonate 650mg tablet OGT SCH ×3 (08:00→21:33)
[2020-06-16] MEDS: vitamin B comp w/Vit. C tab 1 TAB TABLET PO SCH (08:00)
[2020-06-16] MEDS: levetiracetam 100mg/ml oral solution 5ml UD cup OGT SCH ×2 (08:00→19:57)
[2020-06-16] MEDS: lactobacillus rhamnosus 10,000 MMU CELLS/CAPSULE OGT SCH (08:01)
[2020-06-16] MEDS: calcium acetate 667mg (PhosLO) capsule OGT SCH ×3 (08:01→16:59)
[2020-06-16] MEDS: apixaban 5mg tablet OGT SCH ×2 (08:01→19:57)
[2020-06-16] MEDS: lansoprazole 15mg solutab OGT SCH (08:02)
[2020-06-16] MEDS: midodrine 5mg tablet PO SCH ×3 (08:02→16:58)
[2020-06-16] MEDS: PHENYLephrine 10mg/ml inj. 50 MG in normal saline 250ml IV soln 245 ML IV SCH (08:11)
--- NOTE | 2020-06-16 10:46 | NUR ---
F/u 06/16: Noted pt received Nepro TF instead of Vital High Protein last night; now corrected w/ Vital High Protein hanging. Pt tolerated prior Nepro w/ GRV WNL so likely to tolerate lower fat Vital as well. Addendum: 06/16/20 at [address] Amended: Links added.
--- NOTE | 2020-06-16 11:29 | NUR ---
[facility] INFORMATION: REF: [id number] LOT: [id number] EXP: 06/11/2021
[2020-06-16] MEDS ORDERED: heparin 1,000 units/ml 10ml inj IV ONE (14:20)
[2020-06-16] MEDS ORDERED: heparin 1,000 units/ml 10ml inj HE ONE ×2 (14:25)
--- NOTE | 2020-06-16 16:10 | NUR ---
0600- assumed care of patient 0700- Patient opens eyes to name, squeezes hands, will look directly at me when asked, nods head yes to pain at chest. 1000- Critical care rounds- discontinue lasix, dialysis today no fluid off, increased WBC's on anbx, draw blood cultures, sputum in process, anuric, place PICC 1530- dialysis started, BP dropped turned up chris, BP stable, continue to monitor and titrate down as able.
[2020-06-16 16:50] LABS: ABG BASE EXCESS 1.4 mmol/L (-2.0-2.0); ABG HCO3 26.7 mmol/L (22.0-26.0); ABG OXYGEN SATURATION 91.5 % (94-97); ABG PCO2 (T) 45.8 mmHg (35.0-48.0); ABG PO2 (T) 67.4 mmHg (75.0-100.0); FCOHb 0.5 % (0.0-3.9); FMetHb 0.3 % (0.0-1.5); FO2Hb 90.8 % (94-97); PATIENT TEMPERATURE 37.2; PEEP 5 cm H2O; RESPIRATORY RATE 18 b/min; TIDAL VOLUME 450 mL; TOTAL HEMOGLOBIN 9.8 G/dl (14.0-18.0)
--- NOTE | 2020-06-16 18:24 | NUR ---
Problems reprioritized. Patient report given, questions answered & plan of care reviewed with Megan.
--- NOTE | 2020-06-16 18:34 | NUR ---
Patient in room ICU 2041. I have received report from FARIHA Allen and had the opportunity to ask questions and assume patient care.
[2020-06-17] VITALS (26 sets, daily range): BP systolic 96–133; BP diastolic 42–81
[2020-06-17] MEDS: mineral oil/petrolatum ophthal oint EACHEYE SCH ×4 (01:44→19:19)
[2020-06-17] MEDS: propofol 1000mg/100ml bottle 100 ML IV SCH (01:44)
[2020-06-17] MEDS: PHENYLephrine 10mg/ml inj. 50 MG in normal saline 250ml IV soln 245 ML IV SCH ×2 (01:44→17:35)
[2020-06-17] MEDS: dexmedetomidine/D5W 100mL 100 ML IV PRN ×3 (01:45→23:49)
[2020-06-17] MEDS: VANCOMYCIN LEVEL IV SCH (02:54)
[2020-06-17 03:05] LABS: BASOPHILS % (AUTO) 0.2 % (0-1); EOSINOPHILS # (AUTO) 0.4 X10'3 (0-0.9); EOSINOPHILS % (AUTO) 2.7 % (0-6); HEMATOCRIT 29.5 % (42.0-52.0); HEMOGLOBIN 9.1 g/dl (14.0-17.9); LYMPHOCYTES # (AUTO) 1.2 X10'3 (1.1-4.8); LYMPHOCYTES % (AUTO) 8.6 % (21-51); MEAN CORPUSCULAR HEMOGLOBIN 26.2 PG (27.0-31.0); MEAN CORPUSCULAR HGB CONC 30.9 g/dL (33.0-36.5); MEAN CORPUSCULAR VOLUME 84.7 FL (78-98); MONOCYTES % (AUTO) 7.1 % (2-12); NEUTROPHILS # (AUTO) 11.2 X10'3 (1.8-7.7); NEUTROPHILS % (AUTO) 81.4 % (42-75); PLATELET COUNT 149 X10'3 (140-440); RED BLOOD COUNT 3.48 X10'6 (4.70-6.10); WHITE BLOOD COUNT 13.7 X10'3 (4.5-11.0)
[2020-06-17 03:15] LABS: ALANINE AMINOTRANSFERASE 118 U/L (12-78); ALBUMIN/GLOBULIN RATIO 0.5 (1.1-1.5); ALKALINE PHOSPHATASE 611 IU/L (46-116); ANION GAP 13 (8-16); ASPARTATE AMINO TRANSFERASE 115 U/L (10-37); BILIRUBIN,TOTAL 0.9 MG/DL (0.1-1.0); BLOOD UREA NITROGEN 71 MG/DL (7-18); CHLORIDE 97 MMOL/L (99-107); CREATININE 5.94 MG/DL (0.60-1.10); GLUCOSE 159 MG/DL (70-104); MAGNESIUM 1.9 MG/DL (1.5-2.4); PHOSPHORUS 2.6 MG/DL (2.3-4.5); POTASSIUM 4.8 MMOL/L (3.5-5.1); SODIUM 135 MMOL/L (135-145); TOTAL CARBON DIOXIDE 25.3 MMOL/L (24-32); TOTAL PROTEIN 5.7 G/DL (6.4-8.2); eGFR 10 ML/MIN
[2020-06-17 03:20] LABS: ABG BASE EXCESS 0.6 mmol/L (-2.0-2.0); ABG HCO3 24.8 mmol/L (22.0-26.0); ABG OXYGEN SATURATION 97.7 % (94-97); ABG PCO2 (T) 39.8 mmHg (35.0-48.0); ABG PO2 (T) 108.2 mmHg (75.0-100.0); FCOHb 0.4 % (0.0-3.9); FMetHb 0.3 % (0.0-1.5); PEEP 5 cm H2O; RESPIRATORY RATE 20 b/min; TIDAL VOLUME 450 mL
[2020-06-17 04:29] LABS: ANISOCYTOSIS 2+; HYPOCHROMASIA 2+; PLATELET ESTIMATE NORMAL; POLYCHROMASIA FEW; TOTAL CELLS COUNTED 100
[2020-06-17 04:30] LABS: ELLIPTOCYTES FEW; POIKILOCYTOSIS FEW
--- NOTE | 2020-06-17 04:30 | NUR ---
Rounds with Dr. Silva. Update on patient status. Hold spontaneous breathing trail this morning secondary to patient needing bilateral thoracentesis today. She addressed Amiodarone drip, heart rate in the 50's-60's all night. She will place order to discontinue Amiodarone drip.
--- NOTE | 2020-06-17 06:20 | NUR ---
Problems reprioritized. Patient report given, questions answered & plan of care reviewed with FARIHA Hamilton and FARIHA Doe .
[2020-06-17] MEDS ORDERED: vancomycin/NS 1 GM ADD-VANTAGE 250 ML IV ONE ×2 (08:00→08:49)
[2020-06-17] MEDS: sodium bicarbonate 650mg tablet OGT SCH ×3 (08:45→21:00)
[2020-06-17] MEDS: lactobacillus rhamnosus 10,000 MMU CELLS/CAPSULE OGT SCH (08:45)
[2020-06-17] MEDS: lansoprazole 15mg solutab OGT SCH (08:45)
[2020-06-17] MEDS: levetiracetam 100mg/ml oral solution 5ml UD cup OGT SCH ×2 (08:45→19:18)
[2020-06-17] MEDS: midodrine 5mg tablet PO SCH ×3 (08:45→16:03)
[2020-06-17] MEDS: cholecalciferol (vitamin D3) 1,000 unit (25mcg) tablet OGT SCH (08:45)
[2020-06-17] MEDS: apixaban 5mg tablet OGT SCH ×2 (08:45→19:19)
[2020-06-17] MEDS: vitamin B comp w/Vit. C tab 1 TAB TABLET PO SCH (08:46)
[2020-06-17] MEDS: calcitriol 0.25mcg capsule PO SCH (08:46)
[2020-06-17] MEDS: FENTANYL-0.9 % NACL/PF 100 ML IV PRN (08:51)
[2020-06-17] MEDS: calcium acetate 667mg (PhosLO) capsule OGT SCH ×3 (09:07→16:03)
[2020-06-17] MEDS: piperacillin/tazo 3.375gm/50ml 50 ML IV SCH ×2 (09:07→19:18)
--- NOTE | 2020-06-17 15:07 | NUR ---
Reassessment: Pt continues receiving HD and to receive bilateral thoracentesis per MD in critical care rounds. Pt tolerating TF at goal rate 85 ml/hr with GRV WNL 30-282 ml. Last BM 06/16. Will continue to monitor closely. Rec: 1. Continuous TF per MD using Vital High Protein at 85ml/hr goal; to provide 2040ml volume, 1714ml free water, 2040 kcals, and 179g protein. 2. additional free water per refinery pipeline operator on HD 3. PALB Q ; daily wts 4. routine bowel care; Phoslo w/ EN per MD 5. upon extubation; advance diet as medically indicated to renal Addendum: 06/17/20 at [address] Amended: Links added. Addendum: 06/17/20 at [address] I have reviewed and agree with note by leadership program intern. Deneen Fisher, ELLIE
[2020-06-17] MEDS ORDERED: aspirin 325mg tablet PO ONE (15:20)
--- NOTE | 2020-06-17 15:40 | NUR ---
Reassessment: Pt continues receiving HD and to receive bilateral thoracentesis per MD in critical care rounds. Pt tolerating TF at goal rate 85 ml/hr with GRV WNL 30-282 ml. Last BM 06/16. Will continue to monitor closely. Rec: 1. Continuous TF per MD using Vital High Protein at 85ml/hr goal; to provide 2040ml volume, 1714ml free water, 2040 kcals, and 179g protein. 2. additional free water per railroad repairer on HD 3. PALB Q ; daily wts 4. routine bowel care; Phoslo w/ EN per MD 5. upon extubation; advance diet as medically indicated to renal Addendum: 06/17/20 at [address] Amended: Links added. Addendum: 06/17/20 at [address] I have reviewed and agree with note by technical internship. Deneen Fisher, ELLIE
[2020-06-17] MEDS ORDERED: albumin (human) 25% 100 ML IV solution IV ONE (16:05)
--- NOTE | 2020-06-17 18:15 | NUR ---
Patient in room ICU 2041. I have received report from Brook FRIED and had the opportunity to ask questions and assume patient care.
--- NOTE | 2020-06-17 18:19 | NUR ---
Problems reprioritized. Patient report given, questions answered & plan of care reviewed with FARIHA Hoover.
--- NOTE | 2020-06-17 18:20 | NUR ---
Patient in room ICU 2041. I have received report from Brook FRIED and had the opportunity to ask questions and assume patient care.
--- NOTE | 2020-06-17 21:30 | NUR ---
Dr. Alexis came in to see patient. Feels he needs to have a cardiac catheterization. Orders to place Eliquis on hold. He will talk with dr. Thornton about the procedure tomorrow.
[2020-06-18] VITALS (23 sets, daily range): BP systolic 78–122; BP diastolic 43–73
[2020-06-18] MEDS: mineral oil/petrolatum ophthal oint EACHEYE SCH ×4 (02:00→20:00)
[2020-06-18 02:17] LABS: ABG BASE EXCESS -0.8 mmol/L (-2.0-2.0); ABG HCO3 22.8 mmol/L (22.0-26.0); ABG PCO2 (T) 32.1 mmHg (35.0-48.0); ABG PO2 (T) 103.5 mmHg (75.0-100.0); FCOHb 0.7 % (0.0-3.9); FMetHb 0.3 % (0.0-1.5); PATIENT TEMPERATURE 36.2; PEEP 5 cm H2O; RESPIRATORY RATE 20 b/min; TIDAL VOLUME 450 mL; TOTAL HEMOGLOBIN 8.7 G/dl (14.0-18.0)
--- NOTE | 2020-06-18 02:40 | NUR ---
Patient converted from A-fib (HR >100) to SB (HR in the 50's). BP is soft - Map 55. Restarted PHENYLephrine to increase BP.
[2020-06-18 02:43] LABS: BASOPHILS % (AUTO) 0.2 % (0-1); EOSINOPHILS # (AUTO) 0.3 X10'3 (0-0.9); EOSINOPHILS % (AUTO) 2.9 % (0-6); HEMATOCRIT 25.1 % (42.0-52.0); LYMPHOCYTES # (AUTO) 1.2 X10'3 (1.1-4.8); LYMPHOCYTES % (AUTO) 11.1 % (21-51); MEAN CORPUSCULAR HEMOGLOBIN 26.8 PG (27.0-31.0); MEAN CORPUSCULAR HGB CONC 31.8 g/dL (33.0-36.5); MEAN CORPUSCULAR VOLUME 84.4 FL (78-98); MONOCYTES # (AUTO) 0.7 X10'3 (0-0.9); MONOCYTES % (AUTO) 6.8 % (2-12); NEUTROPHILS # (AUTO) 8.5 X10'3 (1.8-7.7); PLATELET COUNT 111 X10'3 (140-440); RED BLOOD COUNT 2.97 X10'6 (4.70-6.10); RED CELL DISTRIBUTION WIDTH 19.2 % (11.5-14.5); WHITE BLOOD COUNT 10.8 X10'3 (4.5-11.0)
[2020-06-18 02:58] LABS: ALANINE AMINOTRANSFERASE 87 U/L (12-78); ALBUMIN 2.5 G/DL (3.4-5.0); ALBUMIN/GLOBULIN RATIO 0.7 (1.1-1.5); ALKALINE PHOSPHATASE 526 IU/L (46-116); ANION GAP 15 (8-16); ASPARTATE AMINO TRANSFERASE 59 U/L (10-37); BILIRUBIN,TOTAL 1.1 MG/DL (0.1-1.0); BLOOD UREA NITROGEN 97 MG/DL (7-18); BUN/CREATININE RATIO 14.7 (5.4-32.0); CALCIUM 8.4 MG/DL (8.5-10.1); CHLORIDE 96 MMOL/L (99-107); CREATININE 6.59 MG/DL (0.60-1.10); GLUCOSE 154 MG/DL (70-104); PHOSPHORUS 2.5 MG/DL (2.3-4.5); POTASSIUM 5.1 MMOL/L (3.5-5.1); SODIUM 135 MMOL/L (135-145); TOTAL PROTEIN 5.9 G/DL (6.4-8.2); VANCOMYCIN,RANDOM 24.9 UG/ML; eGFR 9 ML/MIN
[2020-06-18 04:18] LABS: ANISOCYTOSIS 2+; ELLIPTOCYTES FEW; HYPOCHROMASIA 2+; PLATELET ESTIMATE DECREASED; POIKILOCYTOSIS FEW; TOTAL CELLS COUNTED 100; TOXIC GRANULATION 1+
[2020-06-18 04:19] LABS: POLYCHROMASIA 1+
--- NOTE | 2020-06-18 06:25 | NUR ---
Problems reprioritized. Patient report given, questions answered & plan of care reviewed with Shannan FRIED.
[2020-06-18] MEDS: levetiracetam 100mg/ml oral solution 5ml UD cup OGT SCH ×2 (07:32→21:00)
[2020-06-18] MEDS: lansoprazole 15mg solutab OGT SCH (07:32)
[2020-06-18] MEDS: lactobacillus rhamnosus 10,000 MMU CELLS/CAPSULE OGT SCH (07:32)
[2020-06-18] MEDS: cholecalciferol (vitamin D3) 1,000 unit (25mcg) tablet OGT SCH (07:32)
[2020-06-18] MEDS: sodium bicarbonate 650mg tablet OGT SCH ×3 (07:33→21:01)
[2020-06-18] MEDS: midodrine 5mg tablet PO SCH ×3 (07:33→16:00)
[2020-06-18] MEDS: calcium acetate 667mg (PhosLO) capsule OGT SCH ×3 (07:33→17:00)
[2020-06-18] MEDS: piperacillin/tazo 3.375gm/50ml 50 ML IV SCH ×2 (07:34→20:59)
[2020-06-18] MEDS: vitamin B comp w/Vit. C tab 1 TAB TABLET PO SCH (07:34)
[2020-06-18] MEDS: calcitriol 0.25mcg capsule PO SCH (07:34)
[2020-06-18] MEDS ORDERED: heparin 1,000 units/ml 10ml inj HE ONE ×2 (08:30)
[2020-06-18] MEDS ORDERED: albumin (human) 25% 100ml IV 100 ML IV PRN (08:30)
[2020-06-18] MEDS ORDERED: EPOETIN ALFA-EPBX 20,000 UNIT/ML 1 ML MDV IV ONE (08:30)
[2020-06-18] MEDS: PHENYLephrine 10mg/ml inj. 50 MG in normal saline 250ml IV soln 245 ML IV SCH (09:53)
[2020-06-18] MEDS: amiodarone 200mg tablet PO SCH ×2 (10:10→21:00)
[2020-06-18] MEDS: dexmedetomidine/D5W 100mL 100 ML IV PRN ×2 (10:40→21:00)
--- NOTE | 2020-06-18 18:15 | NUR ---
Patient in room ICU 2041. I have received report from Shannan FRIED and had the opportunity to ask questions and assume patient care.
[2020-06-19] VITALS (21 sets, daily range): BP systolic 83–117; BP diastolic 50–74
[2020-06-19] MEDS: mineral oil/petrolatum ophthal oint EACHEYE SCH ×4 (02:00→20:00)
[2020-06-19] MEDS: PHENYLephrine 10mg/ml inj. 50 MG in normal saline 250ml IV soln 245 ML IV SCH ×2 (02:11→18:29)
[2020-06-19 03:09] LABS: BASOPHILS # (AUTO) 0.1 X10'3 (0-0.2); BASOPHILS % (AUTO) 0.5 % (0-1); EOSINOPHILS # (AUTO) 0.3 X10'3 (0-0.9); EOSINOPHILS % (AUTO) 3.1 % (0-6); HEMOGLOBIN 8.2 g/dl (14.0-17.9); LYMPHOCYTES # (AUTO) 1.1 X10'3 (1.1-4.8); LYMPHOCYTES % (AUTO) 11.2 % (21-51); MEAN CORPUSCULAR HEMOGLOBIN 26.6 PG (27.0-31.0); MEAN CORPUSCULAR HGB CONC 31.8 g/dL (33.0-36.5); MEAN CORPUSCULAR VOLUME 83.9 FL (78-98); MEAN PLATELET VOLUME 8.6 FL (7.4-10.4); MONOCYTES # (AUTO) 0.8 X10'3 (0-0.9); NEUTROPHILS # (AUTO) 7.8 X10'3 (1.8-7.7); NEUTROPHILS % (AUTO) 77.2 % (42-75); PLATELET COUNT 140 X10'3 (140-440); RED CELL DISTRIBUTION WIDTH 20.1 % (11.5-14.5); WHITE BLOOD COUNT 10.2 X10'3 (4.5-11.0)
[2020-06-19 03:20] LABS: ALANINE AMINOTRANSFERASE 76 U/L (12-78); ALBUMIN 2.2 G/DL (3.4-5.0); ALBUMIN/GLOBULIN RATIO 0.6 (1.1-1.5); ALKALINE PHOSPHATASE 592 IU/L (46-116); ANION GAP 13 (8-16); ASPARTATE AMINO TRANSFERASE 49 U/L (10-37); BILIRUBIN,TOTAL 0.9 MG/DL (0.1-1.0); BLOOD UREA NITROGEN 79 MG/DL (7-18); BUN/CREATININE RATIO 15.9 (5.4-32.0); CALCIUM 8.5 MG/DL (8.5-10.1); CHLORIDE 102 MMOL/L (99-107); CREATININE 4.97 MG/DL (0.60-1.10); GLUCOSE 125 MG/DL (70-104); MAGNESIUM 2.1 MG/DL (1.5-2.4); PHOSPHORUS 1.8 MG/DL (2.3-4.5); POTASSIUM 5.1 MMOL/L (3.5-5.1); SODIUM 140 MMOL/L (135-145); TOTAL CARBON DIOXIDE 25.1 MMOL/L (24-32); TOTAL PROTEIN 5.8 G/DL (6.4-8.2); eGFR 12 ML/MIN
[2020-06-19 03:43] LABS: ABG BASE EXCESS -0.9 mmol/L (-2.0-2.0); ABG OXYGEN SATURATION 97.1 % (94-97); ABG PO2 (T) 90.5 mmHg (75.0-100.0); FMetHb 0.3 % (0.0-1.5); FO2Hb 95.8 % (94-97); PATIENT TEMPERATURE 36.8; PEEP 5 cm H2O; RESPIRATORY RATE 18 b/min; TIDAL VOLUME 450 mL; TOTAL HEMOGLOBIN 8.4 G/dl (14.0-18.0)
[2020-06-19 03:53] LABS: ANISOCYTOSIS 2+; HYPOCHROMASIA 2+; PLATELET ESTIMATE NORMAL; POIKILOCYTOSIS FEW
[2020-06-19 03:54] LABS: ELLIPTOCYTES FEW; SPHEROCYTES FEW
[2020-06-19 03:55] LABS: POLYCHROMASIA 1+
[2020-06-19 03:56] LABS: TARGET CELLS FEW
[2020-06-19] MEDS: dexmedetomidine/D5W 100mL 100 ML IV PRN ×5 (04:16→22:31)
--- NOTE | 2020-06-19 06:12 | NUR ---
Problems reprioritized. Patient report given, questions answered & plan of care reviewed with Shnanan FRIED.
[2020-06-19] MEDS: calcium acetate 667mg (PhosLO) capsule OGT SCH ×3 (07:00→16:42)
[2020-06-19] MEDS ORDERED: BUPIVAcaine/PF 2.5 mg/ml (0.25%) 30ml vial ONE (07:02)
[2020-06-19] MEDS ORDERED: LIDOcaine 1% W/epiNEPHrine 1:100,000 20ml vial ONE (07:02)
[2020-06-19] MEDS ORDERED: heparin sodium, porcine/PF 100unit/ml 5ML syringe ONE (07:02)
--- NOTE | 2020-06-19 07:28 | NUR ---
pt to OR via bed with 2 RN, MD, and monitor
[2020-06-19] MEDS ORDERED: dexmedetomidin/NS 400mcg/100mL bag IV ONE (07:32)
[2020-06-19] MEDS ORDERED: sevoflurane 250ml liquid IH ONE (07:32)
[2020-06-19] MEDS: FENTANYL-0.9 % NACL/PF 100 ML IV PRN (07:45)
[2020-06-19] MEDS: levetiracetam 100mg/ml oral solution 5ml UD cup OGT SCH ×2 (08:00→21:12)
[2020-06-19] MEDS: vitamin B comp w/Vit. C tab 1 TAB TABLET PO SCH (08:00)
[2020-06-19] MEDS: lansoprazole 15mg solutab OGT SCH (08:00)
[2020-06-19] MEDS: lactobacillus rhamnosus 10,000 MMU CELLS/CAPSULE OGT SCH (08:00)
[2020-06-19] MEDS: calcitriol 0.25mcg capsule PO SCH (08:00)
[2020-06-19] MEDS: sodium bicarbonate 650mg tablet OGT SCH ×3 (08:00→21:12)
[2020-06-19] MEDS: cholecalciferol (vitamin D3) 1,000 unit (25mcg) tablet OGT SCH (08:00)
--- NOTE | 2020-06-19 08:57 | NUR ---
PT BACK FROM or. PLACED BACK ON MONITOR.VSS
[2020-06-19] MEDS: piperacillin/tazo 3.375gm/50ml 50 ML IV SCH ×2 (10:45→21:12)
[2020-06-19] MEDS ORDERED: LIDOcaine 1% (10mg/ml)w/preservative injection 20ml MDV ONE ×2 (10:51→17:26)
[2020-06-19] MEDS ORDERED: verapamil 2.5 mg/ml inj IV ONE ×2 (10:51→17:26)
[2020-06-19] MEDS ORDERED: heparin 1,000unit/ml 10ml vial 10 ML ONE ×2 (10:51→17:26)
[2020-06-19] MEDS ORDERED: iohexol 350MG/ML 100ml bottle IV ONE ×2 (10:51→17:26)
[2020-06-19] MEDS ORDERED: fentaNYL/PF 50MCG/1 ML 2ML syringe ONE ×2 (10:51→17:26)
[2020-06-19] MEDS ORDERED: iohexol 350 MG/ML 50ML vial IV ONE ×2 (10:51→17:26)
[2020-06-19] MEDS ORDERED: midazolam 1 mg/ML 2ml injection ONE ×2 (10:51→17:26)
[2020-06-19] MEDS ORDERED: nitroGLYCERIN-Tridil 50MG/D5W 250 ML IV ONE ×2 (10:51→17:25)
[2020-06-19] MEDS ORDERED: amiodarone 200mg tablet OGT SCH (11:09)
[2020-06-19] MEDS ORDERED: albumin (human) 25% 100ml IV 200 ML IV PRN (11:10)
[2020-06-19] MEDS: albumin (human) 25% 100 ML IV solution IV PRN (11:14)
--- NOTE | 2020-06-19 11:58 | NUR ---
IR DOUBLE END PRODUCTION GRINDER at bedside to remove left chest tube. pt tolerated procedure well
[2020-06-19] MEDS: midodrine 5mg tablet OGT SCH ×2 (12:00→16:00)
[2020-06-19] MEDS: ipratropium/albuterol 3ml nebule NEB PRN (12:03)
--- NOTE | 2020-06-19 18:15 | NUR ---
Patient in room ICU 2041. I have received report from Shannan FRIED and had the opportunity to ask questions and assume patient care. Patient is in labor custodian.
[2020-06-19 18:58] LABS: ISTAT HGB ART 8.5 g/dl (14.0-18.0); ISTAT Hct ART 25 %PCV (42-52); ISTAT O2 SATURATION ARTERIAL 99 % (95-98); ISTAT SOURCE ART
[2020-06-19] MEDS: apixaban 5mg tablet OGT SCH (20:00)
[2020-06-20] VITALS (24 sets, daily range): BP systolic 95–126; BP diastolic 57–83
[2020-06-20] MEDS: mineral oil/petrolatum ophthal oint EACHEYE SCH ×4 (02:00→20:00)
[2020-06-20 02:13] LABS: BASOPHILS # (AUTO) 0.1 X10'3 (0-0.2); BASOPHILS % (AUTO) 0.8 % (0-1); EOSINOPHILS # (AUTO) 0.3 X10'3 (0-0.9); EOSINOPHILS % (AUTO) 3.7 % (0-6); HEMATOCRIT 24.6 % (42.0-52.0); HEMOGLOBIN 7.9 g/dl (14.0-17.9); LYMPHOCYTES # (AUTO) 1.4 X10'3 (1.1-4.8); LYMPHOCYTES % (AUTO) 15.1 % (21-51); MEAN CORPUSCULAR HEMOGLOBIN 26.9 PG (27.0-31.0); MEAN PLATELET VOLUME 8.5 FL (7.4-10.4); MONOCYTES # (AUTO) 0.7 X10'3 (0-0.9); MONOCYTES % (AUTO) 7.4 % (2-12); NEUTROPHILS # (AUTO) 6.7 X10'3 (1.8-7.7); PLATELET COUNT 157 X10'3 (140-440); RED BLOOD COUNT 2.93 X10'6 (4.70-6.10); RED CELL DISTRIBUTION WIDTH 19.6 % (11.5-14.5); WHITE BLOOD COUNT 9.1 X10'3 (4.5-11.0)
[2020-06-20 02:16] LABS: ALANINE AMINOTRANSFERASE 57 U/L (12-78); ALBUMIN 2.4 G/DL (3.4-5.0); ALBUMIN/GLOBULIN RATIO 0.6 (1.1-1.5); ALKALINE PHOSPHATASE 546 IU/L (46-116); ANION GAP 13 (8-16); ASPARTATE AMINO TRANSFERASE 25 U/L (10-37); BLOOD UREA NITROGEN 98 MG/DL (7-18); BUN/CREATININE RATIO 16.3 (5.4-32.0); CALCIUM 8.7 MG/DL (8.5-10.1); CHLORIDE 101 MMOL/L (99-107); CREATININE 6.03 MG/DL (0.60-1.10); GLUCOSE 145 MG/DL (70-104); MAGNESIUM 2.1 MG/DL (1.5-2.4); PHOSPHORUS 3.3 MG/DL (2.3-4.5); POTASSIUM 5.8 MMOL/L (3.5-5.1); SODIUM 139 MMOL/L (135-145); TOTAL CARBON DIOXIDE 25.4 MMOL/L (24-32); TOTAL PROTEIN 6.1 G/DL (6.4-8.2); eGFR 9 ML/MIN
[2020-06-20 03:13] LABS: ABG BASE EXCESS -2.2 mmol/L (-2.0-2.0); ABG HCO3 22.4 mmol/L (22.0-26.0); ABG OXYGEN SATURATION 96.1 % (94-97); ABG PCO2 (T) 36.4 mmHg (35.0-48.0); ABG PO2 (T) 84.8 mmHg (75.0-100.0); FCOHb 1.1 % (0.0-3.9); FMetHb 0.3 % (0.0-1.5); FO2Hb 94.8 % (94-97); PATIENT TEMPERATURE 36.5; PEEP 5 cm H2O; RESPIRATORY RATE 14 b/min; TIDAL VOLUME 450 mL; TOTAL HEMOGLOBIN 8.6 G/dl (14.0-18.0)
[2020-06-20] MEDS: dexmedetomidine/D5W 100mL 100 ML IV PRN ×3 (05:21→20:55)
[2020-06-20] MEDS ORDERED: amiodarone 150mg/dext, iso-os 100 ML IV ONE (06:26)
--- NOTE | 2020-06-20 06:40 | NUR ---
Problems reprioritized. Patient report given, questions answered & plan of care reviewed with Shannan FRIED.
[2020-06-20] MEDS: lansoprazole 15mg solutab OGT SCH (07:58)
[2020-06-20] MEDS: lactobacillus rhamnosus 10,000 MMU CELLS/CAPSULE OGT SCH (07:58)
[2020-06-20] MEDS: piperacillin/tazo 3.375gm/50ml 50 ML IV SCH ×2 (07:58→20:54)
[2020-06-20] MEDS: amiodarone 200mg tablet OGT SCH ×2 (07:59→20:54)
[2020-06-20] MEDS: midodrine 5mg tablet OGT SCH ×3 (07:59→17:04)
[2020-06-20] MEDS: apixaban 5mg tablet OGT SCH ×2 (07:59→20:54)
[2020-06-20] MEDS: calcium acetate 667mg (PhosLO) capsule OGT SCH ×3 (07:59→17:04)
[2020-06-20] MEDS: vitamin B comp w/Vit. C tab 1 TAB TABLET PO SCH (08:00)
[2020-06-20] MEDS: levetiracetam 100mg/ml oral solution 5ml UD cup OGT SCH ×2 (08:00→20:54)
[2020-06-20] MEDS: calcitriol 0.25mcg capsule PO SCH (08:00)
[2020-06-20] MEDS: cholecalciferol (vitamin D3) 1,000 unit (25mcg) tablet OGT SCH (08:00)
[2020-06-20] MEDS: sodium bicarbonate 650mg tablet OGT SCH ×3 (08:00→20:54)
[2020-06-20] MEDS ORDERED: heparin 1,000unit/ml 10ml vial 10 ML IV ONE (09:15)
[2020-06-20] MEDS ORDERED: EPOETIN ALFA-EPBX 20,000 UNIT/ML 1 ML MDV IV ONE (09:15)
[2020-06-20] MEDS ORDERED: albumin (human) 25% 100ml IV 100 ML IV PRN (09:15)
[2020-06-20] MEDS ORDERED: heparin 1,000 units/ml 10ml inj IV ONE (09:15)
[2020-06-20] MEDS ORDERED: heparin 1,000 units/ml 10ml inj HE ONE ×2 (10:05)
--- NOTE | 2020-06-20 11:42 | NUR ---
Patient in room ICU 2041. I have received report from Shannan and had the opportunity to ask questions and assume patient care.
[2020-06-20] MEDS: PHENYLephrine 10mg/ml inj. 50 MG in normal saline 250ml IV soln 245 ML IV SCH (12:00)
--- NOTE | 2020-06-20 13:48 | NUR ---
Reassessment: Pt s/p PD catheter removal per EMR. Pt continues on HD, s/p thoracentesis 06/17, and L chest tube removed per RN at critical care rounds. Tolerating TF, currently running at 60 ml/hr, with GRV 0-15 ml, WNL. Last BM 06/19. Will continue to monitor closely. Rec: 1. Continuous TF per MD using Vital High Protein at 85ml/hr goal; to provide 2040ml volume, 1714ml free water, 2040 kcals, and 179g protein. 2. additional free water per trailer chief on HD 3. PALB Q ; daily wts 4. routine bowel care; Phoslo per MD 5. upon extubation; advance diet as medically indicated to renal Addendum: 06/20/20 at [address] Amended: Links added. Addendum: 06/20/20 at [address] I have reviewed and agree with note by Assembly Worker. Deneen Fisher, ELLIE
[2020-06-20 15:12] LABS: ABG HCO3 24.8 mmol/L (22.0-26.0); ABG OXYGEN SATURATION 95.6 % (94-97); ABG PCO2 (T) 36.6 mmHg (35.0-48.0); ABG PO2 (T) 85.5 mmHg (75.0-100.0); FCOHb 1.1 % (0.0-3.9); FLOW 30 L/min; FMetHb 0.3 % (0.0-1.5); FO2Hb 94.3 % (94-97); PATIENT TEMPERATURE 37.4; PEEP 5 cm H2O; RESPIRATORY RATE 14 b/min; TIDAL VOLUME 450 mL; TOTAL HEMOGLOBIN 8.8 G/dl (14.0-18.0)
[2020-06-21] VITALS (24 sets, daily range): BP systolic 94–137; BP diastolic 54–86
[2020-06-21] MEDS: dexmedetomidine/D5W 100mL 100 ML IV PRN ×4 (00:06→17:44)
[2020-06-21] MEDS: FENTANYL-0.9 % NACL/PF 100 ML IV PRN (00:07)
[2020-06-21] MEDS: mineral oil/petrolatum ophthal oint EACHEYE SCH ×4 (02:00→20:47)
[2020-06-21 02:53] LABS: ABG BASE EXCESS -2.5 mmol/L (-2.0-2.0); ABG HCO3 22.4 mmol/L (22.0-26.0); ABG PCO2 (T) 39.6 mmHg (35.0-48.0); ABG PO2 (T) 178.3 mmHg (75.0-100.0); FCOHb 0.9 % (0.0-3.9); FMetHb 0.3 % (0.0-1.5); FO2Hb 97.8 % (94-97); PATIENT TEMPERATURE 37.6; PEEP 5 cm H2O; RESPIRATORY RATE 14 b/min; TIDAL VOLUME 450 mL; TOTAL HEMOGLOBIN 8.5 G/dl (14.0-18.0)
[2020-06-21] MEDS: PHENYLephrine 10mg/ml inj. 50 MG in normal saline 250ml IV soln 245 ML IV SCH (03:05)
[2020-06-21 04:24] LABS: BASOPHILS # (AUTO) 0.1 X10'3 (0-0.2); BASOPHILS % (AUTO) 0.7 % (0-1); EOSINOPHILS # (AUTO) 0.3 X10'3 (0-0.9); EOSINOPHILS % (AUTO) 3.4 % (0-6); HEMATOCRIT 25.1 % (42.0-52.0); HEMOGLOBIN 7.9 g/dl (14.0-17.9); LYMPHOCYTES # (AUTO) 1.1 X10'3 (1.1-4.8); LYMPHOCYTES % (AUTO) 12.3 % (21-51); MEAN CORPUSCULAR HEMOGLOBIN 26.7 PG (27.0-31.0); MEAN CORPUSCULAR HGB CONC 31.4 g/dL (33.0-36.5); MEAN CORPUSCULAR VOLUME 84.9 FL (78-98); MEAN PLATELET VOLUME 8.6 FL (7.4-10.4); MONOCYTES # (AUTO) 0.8 X10'3 (0-0.9); MONOCYTES % (AUTO) 8.9 % (2-12); NEUTROPHILS # (AUTO) 6.9 X10'3 (1.8-7.7); NEUTROPHILS % (AUTO) 74.7 % (42-75); PLATELET COUNT 179 X10'3 (140-440); RED BLOOD COUNT 2.96 X10'6 (4.70-6.10); RED CELL DISTRIBUTION WIDTH 19.7 % (11.5-14.5); WHITE BLOOD COUNT 9.2 X10'3 (4.5-11.0)
[2020-06-21 04:33] LABS: ALANINE AMINOTRANSFERASE 66 U/L (12-78); ALBUMIN 2.2 G/DL (3.4-5.0); ALBUMIN/GLOBULIN RATIO 0.6 (1.1-1.5); ALKALINE PHOSPHATASE 687 IU/L (46-116); ANION GAP 11 (8-16); ASPARTATE AMINO TRANSFERASE 42 U/L (10-37); BLOOD UREA NITROGEN 84 MG/DL (7-18); BUN/CREATININE RATIO 16.8 (5.4-32.0); CALCIUM 8.6 MG/DL (8.5-10.1); CHLORIDE 100 MMOL/L (99-107); CREATININE 5.01 MG/DL (0.60-1.10); GLUCOSE 162 MG/DL (70-104); PHOSPHORUS 3.2 MG/DL (2.3-4.5); POTASSIUM 5.4 MMOL/L (3.5-5.1); SODIUM 139 MMOL/L (135-145); TOTAL CARBON DIOXIDE 27.6 MMOL/L (24-32); TOTAL PROTEIN 6.1 G/DL (6.4-8.2); TRIGLYCERIDES 68 MG/DL (20-135); eGFR 12 ML/MIN
[2020-06-21 04:52] LABS: ANISOCYTOSIS 2+; PLATELET ESTIMATE NORMAL
[2020-06-21 04:54] LABS: ELLIPTOCYTES 1+; TEAR DROP CELLS 1+
[2020-06-21 04:55] LABS: HYPOCHROMASIA 1+
[2020-06-21] MEDS: calcitriol 0.25mcg capsule PO SCH (08:00)
[2020-06-21] MEDS: levetiracetam 100mg/ml oral solution 5ml UD cup OGT SCH ×2 (08:22→20:45)
[2020-06-21] MEDS: calcium acetate 667mg (PhosLO) capsule OGT SCH ×3 (08:22→17:45)
[2020-06-21] MEDS: lansoprazole 15mg solutab OGT SCH (08:22)
[2020-06-21] MEDS: apixaban 5mg tablet OGT SCH ×2 (08:22→20:47)
[2020-06-21] MEDS: amiodarone 200mg tablet OGT SCH ×2 (08:22→20:46)
[2020-06-21] MEDS: cholecalciferol (vitamin D3) 1,000 unit (25mcg) tablet OGT SCH (08:22)
[2020-06-21] MEDS: piperacillin/tazo 3.375gm/50ml 50 ML IV SCH ×2 (08:22→20:45)
[2020-06-21] MEDS: vitamin B comp w/Vit. C tab 1 TAB TABLET PO SCH (08:23)
[2020-06-21] MEDS: sodium bicarbonate 650mg tablet OGT SCH ×3 (08:23→20:45)
[2020-06-21] MEDS: midodrine 5mg tablet OGT SCH ×3 (08:23→17:45)
[2020-06-21] MEDS: lactobacillus rhamnosus 10,000 MMU CELLS/CAPSULE OGT SCH (08:23)
[2020-06-22] VITALS (23 sets, daily range): BP systolic 112–149; BP diastolic 68–105
[2020-06-22] MEDS: mineral oil/petrolatum ophthal oint EACHEYE SCH ×4 (02:00→19:17)
[2020-06-22 02:57] LABS: ABG BASE EXCESS -3.7 mmol/L (-2.0-2.0); ABG HCO3 22.2 mmol/L (22.0-26.0); ABG OXYGEN SATURATION 94.1 % (94-97); ABG PO2 (T) 75.1 mmHg (75.0-100.0); FCOHb 1.1 % (0.0-3.9); FMetHb 0.3 % (0.0-1.5); FO2Hb 92.8 % (94-97); PATIENT TEMPERATURE 36.5; PEEP 5 cm H2O; RESPIRATORY RATE 14 b/min; TIDAL VOLUME 450 mL; TOTAL HEMOGLOBIN 8.5 G/dl (14.0-18.0)
[2020-06-22 03:09] LABS: BASOPHILS # (AUTO) 0.1 X10'3 (0-0.2); BASOPHILS % (AUTO) 0.7 % (0-1); EOSINOPHILS # (AUTO) 0.3 X10'3 (0-0.9); EOSINOPHILS % (AUTO) 2.9 % (0-6); HEMATOCRIT 25.9 % (42.0-52.0); LYMPHOCYTES # (AUTO) 1.2 X10'3 (1.1-4.8); LYMPHOCYTES % (AUTO) 11.3 % (21-51); MEAN CORPUSCULAR HEMOGLOBIN 26.7 PG (27.0-31.0); MEAN CORPUSCULAR HGB CONC 30.9 g/dL (33.0-36.5); MEAN CORPUSCULAR VOLUME 86.2 FL (78-98); MEAN PLATELET VOLUME 8.3 FL (7.4-10.4); MONOCYTES # (AUTO) 0.8 X10'3 (0-0.9); MONOCYTES % (AUTO) 7.8 % (2-12); NEUTROPHILS # (AUTO) 7.9 X10'3 (1.8-7.7); NEUTROPHILS % (AUTO) 77.3 % (42-75); PLATELET COUNT 215 X10'3 (140-440); RED BLOOD COUNT 3.01 X10'6 (4.70-6.10); RED CELL DISTRIBUTION WIDTH 19.6 % (11.5-14.5); WHITE BLOOD COUNT 10.2 X10'3 (4.5-11.0)
[2020-06-22 03:19] LABS: ALANINE AMINOTRANSFERASE 87 U/L (12-78); ALBUMIN 2.2 G/DL (3.4-5.0); ALBUMIN/GLOBULIN RATIO 0.6 (1.1-1.5); ALKALINE PHOSPHATASE 603 IU/L (46-116); ANION GAP 16 (8-16); ASPARTATE AMINO TRANSFERASE 50 U/L (10-37); BILIRUBIN,TOTAL 0.8 MG/DL (0.1-1.0); BLOOD UREA NITROGEN 112 MG/DL (7-18); BUN/CREATININE RATIO 19.4 (5.4-32.0); CALCIUM 8.4 MG/DL (8.5-10.1); CHLORIDE 97 MMOL/L (99-107); CREATININE 5.77 MG/DL (0.60-1.10); GLUCOSE 173 MG/DL (70-104); MAGNESIUM 2.2 MG/DL (1.5-2.4); PHOSPHORUS 3.5 MG/DL (2.3-4.5); POTASSIUM 5.9 MMOL/L (3.5-5.1); SODIUM 137 MMOL/L (135-145); TOTAL CARBON DIOXIDE 23.9 MMOL/L (24-32); TOTAL PROTEIN 6.1 G/DL (6.4-8.2); eGFR 10 ML/MIN
[2020-06-22] MEDS: dexmedetomidine/D5W 100mL 100 ML IV PRN ×3 (03:51→22:59)
[2020-06-22] MEDS: FENTANYL-0.9 % NACL/PF 100 ML IV PRN (03:51)
[2020-06-22] MEDS: calcitriol 0.25mcg capsule PO SCH (08:00)
[2020-06-22] MEDS: lactobacillus rhamnosus 10,000 MMU CELLS/CAPSULE OGT SCH (08:58)
[2020-06-22] MEDS: sodium bicarbonate 650mg tablet OGT SCH ×3 (08:58→20:07)
[2020-06-22] MEDS: levetiracetam 100mg/ml oral solution 5ml UD cup OGT SCH ×2 (08:58→19:42)
[2020-06-22] MEDS: amiodarone 200mg tablet OGT SCH ×2 (08:58→19:41)
[2020-06-22] MEDS: midodrine 5mg tablet OGT SCH ×3 (08:58→17:06)
[2020-06-22] MEDS: piperacillin/tazo 3.375gm/50ml 50 ML IV SCH ×2 (08:58→19:17)
[2020-06-22] MEDS: cholecalciferol (vitamin D3) 1,000 unit (25mcg) tablet OGT SCH (08:58)
[2020-06-22] MEDS: lansoprazole 15mg solutab OGT SCH (08:59)
[2020-06-22] MEDS: vitamin B comp w/Vit. C tab 1 TAB TABLET PO SCH (08:59)
[2020-06-22] MEDS: apixaban 5mg tablet OGT SCH ×2 (08:59→19:42)
[2020-06-22] MEDS ORDERED: polyethylene glycol 3350 17gm powd pack OGT ONE (10:00)
[2020-06-22] MEDS: methylnaltrexone br 12mg/0.6ml inj***SubQ only SQ SCH (10:46)
[2020-06-22] MEDS: calcium acetate 667mg (PhosLO) capsule OGT SCH ×3 (10:47→19:16)
[2020-06-22] MEDS: simethicone 80mg chew tab OGT SCH ×2 (14:40→20:07)
[2020-06-22] MEDS: ipratropium/albuterol 3ml nebule NEB PRN (17:07)
[2020-06-22] MEDS ORDERED: bisacodyl 10mg suppository rectal RC PRN (17:45)
--- NOTE | 2020-06-22 18:37 | NUR ---
Patient in room ICU 2041. I have received report from FARIHA Cortez and had the opportunity to ask questions and assume patient care.
[2020-06-22] MEDS: carVEDilol 3.125mg tablet OGT SCH (19:41)
[2020-06-23] VITALS (23 sets, daily range): BP systolic 79–114; BP diastolic 45–85
[2020-06-23] MEDS: mineral oil/petrolatum ophthal oint EACHEYE SCH ×5 (02:00→23:17)
[2020-06-23 03:12] LABS: BASOPHILS # (AUTO) 0.1 X10'3 (0-0.2); BASOPHILS % (AUTO) 0.8 % (0-1); EOSINOPHILS # (AUTO) 0.2 X10'3 (0-0.9); EOSINOPHILS % (AUTO) 2.1 % (0-6); HEMATOCRIT 25.1 % (42.0-52.0); HEMOGLOBIN 7.8 g/dl (14.0-17.9); LYMPHOCYTES # (AUTO) 1.1 X10'3 (1.1-4.8); LYMPHOCYTES % (AUTO) 10.6 % (21-51); MEAN CORPUSCULAR HEMOGLOBIN 26.9 PG (27.0-31.0); MEAN CORPUSCULAR HGB CONC 31.3 g/dL (33.0-36.5); MEAN CORPUSCULAR VOLUME 85.8 FL (78-98); MEAN PLATELET VOLUME 8.2 FL (7.4-10.4); MONOCYTES # (AUTO) 0.6 X10'3 (0-0.9); NEUTROPHILS # (AUTO) 8.7 X10'3 (1.8-7.7); NEUTROPHILS % (AUTO) 80.5 % (42-75); PLATELET COUNT 253 X10'3 (140-440); RED BLOOD COUNT 2.92 X10'6 (4.70-6.10); RED CELL DISTRIBUTION WIDTH 19.5 % (11.5-14.5); WHITE BLOOD COUNT 10.8 X10'3 (4.5-11.0)
[2020-06-23 03:51] LABS: ANISOCYTOSIS 2+; ELLIPTOCYTES FEW; LARGE PLATELETS FEW; PLATELET ESTIMATE NORMAL; POLYCHROMASIA FEW; TEAR DROP CELLS FEW
[2020-06-23 03:51] LABS: ABG BASE EXCESS -8.1 mmol/L (-2.0-2.0); ABG HCO3 17.3 mmol/L (22.0-26.0); ABG OXYGEN SATURATION 96.6 % (94-97); ABG PCO2 (T) 33.6 mmHg (35.0-48.0); ABG PO2 (T) 95.5 mmHg (75.0-100.0); ALLEN'S TEST POSITIVE; FCOHb 0.9 % (0.0-3.9); FMetHb 0.3 % (0.0-1.5); FO2Hb 95.4 % (94-97); PATIENT TEMPERATURE 36.4; PEEP 5 cm H2O; RESPIRATORY RATE 14 b/min; TIDAL VOLUME 450 mL; TOTAL HEMOGLOBIN 7.9 G/dl (14.0-18.0)
[2020-06-23] MEDS: dexmedetomidine/D5W 100mL 100 ML IV PRN ×4 (04:35→22:14)
[2020-06-23] MEDS: FENTANYL-0.9 % NACL/PF 100 ML IV PRN (04:35)
[2020-06-23 04:50] LABS: ANION GAP 16 (8-16); BLOOD UREA NITROGEN 132 MG/DL (7-18); BUN/CREATININE RATIO 20.9 (5.4-32.0); CHLORIDE 96 MMOL/L (99-107); CREATININE 6.32 MG/DL (0.60-1.10); GLUCOSE 157 MG/DL (70-104); SODIUM 136 MMOL/L (135-145)
[2020-06-23 04:51] LABS: ALANINE AMINOTRANSFERASE 67 U/L (12-78); ALBUMIN 2.1 G/DL (3.4-5.0); ALBUMIN/GLOBULIN RATIO 0.5 (1.1-1.5); ALKALINE PHOSPHATASE 543 IU/L (46-116); ASPARTATE AMINO TRANSFERASE 38 U/L (10-37); BILIRUBIN,TOTAL 0.8 MG/DL (0.1-1.0); CALCIUM 8.9 MG/DL (8.5-10.1); MAGNESIUM 2.1 MG/DL (1.5-2.4); PHOSPHORUS 5.2 MG/DL (2.3-4.5); PREALBUMIN 14.3 MG/DL (19-36); TOTAL PROTEIN 6.2 G/DL (6.4-8.2); eGFR 9 ML/MIN
[2020-06-23 04:58] LABS: POTASSIUM 6.8 MMOL/L (3.5-5.1)
--- NOTE | 2020-06-23 06:14 | NUR ---
Problems reprioritized. Patient report given, questions answered & plan of care reviewed with FARIHA Alvarenga.
[2020-06-23] MEDS: simethicone 80mg chew tab OGT SCH ×3 (07:48→20:40)
[2020-06-23] MEDS: levetiracetam 100mg/ml oral solution 5ml UD cup OGT SCH ×2 (07:48→20:40)
[2020-06-23] MEDS: lactobacillus rhamnosus 10,000 MMU CELLS/CAPSULE OGT SCH (07:49)
[2020-06-23] MEDS: calcium acetate 667mg (PhosLO) capsule OGT SCH ×3 (07:49→16:40)
[2020-06-23] MEDS: calcitriol 0.25mcg capsule PO SCH (07:49)
[2020-06-23] MEDS: carVEDilol 3.125mg tablet OGT SCH ×2 (07:49→20:00)
[2020-06-23] MEDS: vitamin B comp w/Vit. C tab 1 TAB TABLET PO SCH (07:50)
[2020-06-23] MEDS: cholecalciferol (vitamin D3) 1,000 unit (25mcg) tablet OGT SCH (07:50)
[2020-06-23] MEDS: apixaban 5mg tablet OGT SCH ×2 (07:50→20:40)
[2020-06-23] MEDS: lansoprazole 15mg solutab OGT SCH (07:51)
[2020-06-23] MEDS: sodium bicarbonate 650mg tablet OGT SCH ×3 (07:51→20:41)
[2020-06-23] MEDS: amiodarone 200mg tablet OGT SCH ×2 (07:51→20:40)
[2020-06-23] MEDS: midodrine 5mg tablet OGT SCH ×3 (07:52→16:41)
[2020-06-23] MEDS ORDERED: heparin 1,000unit/ml 10ml vial 10 ML IV ONE (09:00)
[2020-06-23] MEDS ORDERED: heparin 1,000 units/ml 10ml inj HE ONE (09:00)
[2020-06-23] MEDS ORDERED: heparin 1,000 units/ml 10ml inj IV ONE (09:00)
[2020-06-23] MEDS: piperacillin/tazo 3.375gm/50ml 50 ML IV SCH ×2 (09:10→20:41)
[2020-06-23] MEDS ORDERED: sodium polystyrene sulfonate 15gm/60ml oral suspension PO STA (09:47)
[2020-06-23 09:59] LABS: ISTAT Hct MIX 26 %PCV (42-52); ISTAT O2 SATURATION MIX VENOUS 57 % (60-80); ISTAT SOURCE CAP
[2020-06-23] MEDS: ipratropium/albuterol 3ml nebule NEB PRN (11:43)
--- NOTE | 2020-06-23 12:30 | NUR ---
Reassessment: Pt continues on HD and s/p R chest tube removed per EMR. Pt tolerating TF, running at goal rate 85 ml/hr with GRV WNL 50-120 ml. Last BM 06/23 with many bowel movements per RN at critical care rounds. Will continue to monitor closely. Rec: 1. Continuous TF per MD using Vital High Protein at 85ml/hr goal; to provide 2040ml volume, 1714ml free water, 2040 kcals, and 179g protein. 2. additional free water per attraction worker on HD 3. PALB Q ; daily wts 4. routine bowel care; Phoslo per MD 5. upon extubation; advance diet as medically indicated to renal Addendum: 06/23/20 at [address] Amended: Links added. Addendum: 06/23/20 at [address] RD agrees w/ above product management intern note.
--- NOTE | 2020-06-23 18:30 | NUR ---
Patient in room ICU 2041. I have received report from FARIHA Alvarenga and had the opportunity to ask questions and assume patient care.
[2020-06-24] VITALS (24 sets, daily range): BP systolic 83–157; BP diastolic 47–89
[2020-06-24 03:12] LABS: BASOPHILS # (AUTO) 0.1 X10'3 (0-0.2); BASOPHILS % (AUTO) 1.1 % (0-1); EOSINOPHILS # (AUTO) 0.4 X10'3 (0-0.9); EOSINOPHILS % (AUTO) 4.2 % (0-6); HEMOGLOBIN 7.8 g/dl (14.0-17.9); LYMPHOCYTES # (AUTO) 1.3 X10'3 (1.1-4.8); LYMPHOCYTES % (AUTO) 14.6 % (21-51); MEAN CORPUSCULAR HEMOGLOBIN 26.7 PG (27.0-31.0); MEAN CORPUSCULAR HGB CONC 31.2 g/dL (33.0-36.5); MEAN CORPUSCULAR VOLUME 85.6 FL (78-98); MEAN PLATELET VOLUME 8.1 FL (7.4-10.4); MONOCYTES # (AUTO) 0.4 X10'3 (0-0.9); MONOCYTES % (AUTO) 4.8 % (2-12); NEUTROPHILS # (AUTO) 6.5 X10'3 (1.8-7.7); NEUTROPHILS % (AUTO) 75.3 % (42-75); PLATELET COUNT 282 X10'3 (140-440); RED BLOOD COUNT 2.92 X10'6 (4.70-6.10); RED CELL DISTRIBUTION WIDTH 20.1 % (11.5-14.5); WHITE BLOOD COUNT 8.6 X10'3 (4.5-11.0)
[2020-06-24] MEDS: ipratropium/albuterol 3ml nebule NEB PRN ×2 (03:15→17:24)
[2020-06-24 03:23] LABS: ALANINE AMINOTRANSFERASE 76 U/L (12-78); ALBUMIN/GLOBULIN RATIO 0.5 (1.1-1.5); ALKALINE PHOSPHATASE 504 IU/L (46-116); ANION GAP 12 (8-16); ASPARTATE AMINO TRANSFERASE 41 U/L (10-37); BILIRUBIN,TOTAL 0.7 MG/DL (0.1-1.0); BLOOD UREA NITROGEN 87 MG/DL (7-18); BUN/CREATININE RATIO 19.3 (5.4-32.0); CALCIUM 8.4 MG/DL (8.5-10.1); CHLORIDE 97 MMOL/L (99-107); GLUCOSE 146 MG/DL (70-104); PHOSPHORUS 4.3 MG/DL (2.3-4.5); POTASSIUM 5.2 MMOL/L (3.5-5.1); SODIUM 136 MMOL/L (135-145); eGFR 13 ML/MIN
[2020-06-24] MEDS: dexmedetomidine/D5W 100mL 100 ML IV PRN ×2 (03:26→20:36)
[2020-06-24 03:32] LABS: ABG BASE EXCESS 1.6 mmol/L (-2.0-2.0); ABG OXYGEN SATURATION 96.8 % (94-97); ABG PCO2 (T) 54.6 mmHg (35.0-48.0); ABG PO2 (T) 94.5 mmHg (75.0-100.0); ALLEN'S TEST POSITIVE; FMetHb 0.3 % (0.0-1.5); FO2Hb 94.6 % (94-97); PATIENT TEMPERATURE 36.9; PEEP 5 cm H2O; RESPIRATORY RATE 14 b/min; TIDAL VOLUME 450 mL; TOTAL HEMOGLOBIN 8.4 G/dl (14.0-18.0)
[2020-06-24 04:52] LABS: ANISOCYTOSIS 3+; PLATELET ESTIMATE NORMAL
--- NOTE | 2020-06-24 06:17 | NUR ---
Problems reprioritized. Patient report given, questions answered & plan of care reviewed with FARIHA luke.
[2020-06-24] MEDS: methylnaltrexone br 12mg/0.6ml inj***SubQ only SQ SCH (07:49)
[2020-06-24] MEDS: simethicone 80mg chew tab OGT SCH ×3 (07:49→20:18)
[2020-06-24] MEDS: cholecalciferol (vitamin D3) 1,000 unit (25mcg) tablet OGT SCH (07:49)
[2020-06-24] MEDS: lactobacillus rhamnosus 10,000 MMU CELLS/CAPSULE OGT SCH (07:49)
[2020-06-24] MEDS: piperacillin/tazo 3.375gm/50ml 50 ML IV SCH (07:49)
[2020-06-24] MEDS: levetiracetam 100mg/ml oral solution 5ml UD cup OGT SCH ×2 (07:49→20:18)
[2020-06-24] MEDS: apixaban 5mg tablet OGT SCH ×2 (07:50→20:18)
[2020-06-24] MEDS: calcium acetate 667mg (PhosLO) capsule OGT SCH ×3 (07:50→17:00)
[2020-06-24] MEDS: lansoprazole 15mg solutab OGT SCH (07:50)
[2020-06-24] MEDS: vitamin B comp w/Vit. C tab 1 TAB TABLET PO SCH (07:50)
[2020-06-24] MEDS: carVEDilol 3.125mg tablet OGT SCH ×2 (07:50→20:00)
[2020-06-24] MEDS: midodrine 5mg tablet OGT SCH ×3 (07:50→15:36)
[2020-06-24] MEDS: amiodarone 200mg tablet OGT SCH ×2 (07:50→20:18)
[2020-06-24] MEDS: sodium bicarbonate 650mg tablet OGT SCH ×2 (07:51→13:27)
[2020-06-24] MEDS: calcitriol 0.25mcg capsule PO SCH (07:51)
[2020-06-24] MEDS: mineral oil/petrolatum ophthal oint EACHEYE SCH ×3 (07:51→19:32)
[2020-06-24] MEDS ORDERED: racepinephrine 11.25mg/0.5ml nebule IH PRN (09:25)
--- NOTE | 2020-06-24 09:40 | NUR ---
orders to extubate patient per MD order. RT Stephanie performed procedure. Patient tolerated well. Patient placed on 02 4LPM via NC, Sp02 98%. No distress noted. Will continue to monitor.
--- NOTE | 2020-06-24 11:00 | NUR ---
patient educated on flutter valve and incentive spirometer. Patient encouraged to use at least every hour. All questions and concerns addressed. Will continue to monitor.
[2020-06-24] MEDS: HYDROcodone/acetaminophen 10/325mg tab PO PRN (15:37)
--- NOTE | 2020-06-24 17:10 | NUR ---
PATIENT C/O SOB, FEELING LIKE HE "ISNT GOING TO MAKE IT". JACQUELIN, RT NOTIFIED, PATIENT PLACED ON BIPAP AT 50% AND ABG ORDERED. DR. OAKLEY CALLED WITH UPDATED, AGREES WITH PLAN. PRECEDEX RESTARTED. AT BEDSIDE. WILL CONTINUE TO MONITOR.
[2020-06-24 17:57] LABS: ABG BASE EXCESS -3.6 mmol/L (-2.0-2.0); ABG HCO3 23.9 mmol/L (22.0-26.0); ABG OXYGEN SATURATION 91.3 % (94-97); ABG PCO2 (T) 56.3 mmHg (35.0-48.0); ABG PO2 (T) 71.9 mmHg (75.0-100.0); ALLEN'S TEST POSITIVE; FCOHb 1.5 % (0.0-3.9); FMetHb 0.3 % (0.0-1.5); FO2Hb 89.7 % (94-97); RESPIRATORY RATE 20 b/min; TIDAL VOLUME 538 mL
--- NOTE | 2020-06-24 18:20 | NUR ---
Patient in room ICU 2041. I have received report from Dana FRIED and had the opportunity to ask questions and assume patient care.
[2020-06-24] MEDS ORDERED: dexmedetomidin/NS 400mcg/100ml 100 ML IV PRN (19:40)
[2020-06-25] VITALS (23 sets, daily range): BP systolic 88–128; BP diastolic 40–87
[2020-06-25] MEDS: ipratropium/albuterol 3ml nebule NEB PRN ×2 (00:16→08:01)
[2020-06-25] MEDS: mineral oil/petrolatum ophthal oint EACHEYE SCH ×4 (01:15→20:00)
[2020-06-25 02:36] LABS: BASOPHILS # (AUTO) 0.1 X10'3 (0-0.2); BASOPHILS % (AUTO) 0.7 % (0-1); EOSINOPHILS # (AUTO) 0.2 X10'3 (0-0.9); EOSINOPHILS % (AUTO) 1.6 % (0-6); HEMATOCRIT 25.1 % (42.0-52.0); HEMOGLOBIN 7.8 g/dl (14.0-17.9); LYMPHOCYTES # (AUTO) 1.1 X10'3 (1.1-4.8); LYMPHOCYTES % (AUTO) 10.1 % (21-51); MEAN CORPUSCULAR HEMOGLOBIN 26.8 PG (27.0-31.0); MEAN CORPUSCULAR HGB CONC 31.1 g/dL (33.0-36.5); MEAN CORPUSCULAR VOLUME 86.3 FL (78-98); MEAN PLATELET VOLUME 7.8 FL (7.4-10.4); MONOCYTES # (AUTO) 0.6 X10'3 (0-0.9); MONOCYTES % (AUTO) 5.6 % (2-12); NEUTROPHILS # (AUTO) 8.6 X10'3 (1.8-7.7); PLATELET COUNT 310 X10'3 (140-440); RED BLOOD COUNT 2.91 X10'6 (4.70-6.10); RED CELL DISTRIBUTION WIDTH 19.5 % (11.5-14.5); WHITE BLOOD COUNT 10.5 X10'3 (4.5-11.0)
[2020-06-25 02:52] LABS: ALANINE AMINOTRANSFERASE 67 U/L (12-78); ALBUMIN 2.2 G/DL (3.4-5.0); ALBUMIN/GLOBULIN RATIO 0.5 (1.1-1.5); ALKALINE PHOSPHATASE 483 IU/L (46-116); ANION GAP 12 (8-16); ASPARTATE AMINO TRANSFERASE 31 U/L (10-37); BILIRUBIN,TOTAL 0.8 MG/DL (0.1-1.0); BLOOD UREA NITROGEN 104 MG/DL (7-18); BUN/CREATININE RATIO 20.3 (5.4-32.0); CALCIUM 8.6 MG/DL (8.5-10.1); CHLORIDE 95 MMOL/L (99-107); CREATININE 5.13 MG/DL (0.60-1.10); GLUCOSE 115 MG/DL (70-104); MAGNESIUM 2.1 MG/DL (1.5-2.4); PHOSPHORUS 5.7 MG/DL (2.3-4.5); POTASSIUM 5.9 MMOL/L (3.5-5.1); SODIUM 134 MMOL/L (135-145); TOTAL CARBON DIOXIDE 26.7 MMOL/L (24-32); TOTAL PROTEIN 6.4 G/DL (6.4-8.2); eGFR 11 ML/MIN
[2020-06-25] MEDS ORDERED: insulin regular, human 10 units/0.1 ml syringe IV ONE (05:05)
[2020-06-25] MEDS ORDERED: calcium chloride 100 MG/1 ML inj IV ONE (05:05)
[2020-06-25] MEDS ORDERED: dextrose 50%-water 50ml dispensing syringe IV ONE (05:05)
[2020-06-25] MEDS ORDERED: albuterol 2.5 MG/3 ML nebule NEB ONE (05:05)
--- NOTE | 2020-06-25 06:33 | NUR ---
Problems reprioritized. Patient report given, questions answered & plan of care reviewed with Dana FRIED.
[2020-06-25] MEDS: lactobacillus rhamnosus 10,000 MMU CELLS/CAPSULE OGT SCH (08:00)
[2020-06-25] MEDS: lansoprazole 15mg solutab OGT SCH (08:00)
[2020-06-25] MEDS: carVEDilol 3.125mg tablet OGT SCH ×2 (08:00→20:52)
[2020-06-25] MEDS: simethicone 80mg chew tab OGT SCH ×3 (08:00→20:52)
[2020-06-25] MEDS: vitamin B comp w/Vit. C tab 1 TAB TABLET PO SCH (08:00)
[2020-06-25] MEDS: cholecalciferol (vitamin D3) 1,000 unit (25mcg) tablet OGT SCH (08:00)
[2020-06-25] MEDS: calcitriol 0.25mcg capsule PO SCH (08:00)
[2020-06-25 08:13] LABS: ALBUMIN 2.2 G/DL (3.4-5.0); ANION GAP 13 (8-16); BLOOD UREA NITROGEN 107 MG/DL (7-18); CHLORIDE 95 MMOL/L (99-107); CREATININE 5.36 MG/DL (0.60-1.10); GLUCOSE 104 MG/DL (70-104); POTASSIUM 5.9 MMOL/L (3.5-5.1); SODIUM 135 MMOL/L (135-145); TOTAL CARBON DIOXIDE 26.6 MMOL/L (24-32); eGFR 11 ML/MIN
[2020-06-25] MEDS ORDERED: albumin (human) 25% 100ml IV 100 ML IV PRN (08:20)
[2020-06-25] MEDS ORDERED: EPOETIN ALFA-EPBX 20,000 UNIT/ML 1 ML MDV IV ONE (08:20)
[2020-06-25] MEDS ORDERED: heparin 1,000 units/ml 10ml inj HE ONE ×2 (08:25)
[2020-06-25] MEDS: calcium acetate 667mg (PhosLO) capsule OGT SCH ×2 (08:38→12:00)
[2020-06-25] MEDS: midodrine 5mg tablet OGT SCH ×3 (08:39→17:41)
[2020-06-25] MEDS: amiodarone 200mg tablet OGT SCH ×2 (08:39→20:51)
[2020-06-25] MEDS: apixaban 5mg tablet OGT SCH ×2 (08:39→20:52)
[2020-06-25] MEDS: levetiracetam 100mg/ml oral solution 5ml UD cup OGT SCH ×2 (08:39→20:50)
[2020-06-25] MEDS: albumin (human) 25% 100 ML IV solution IV PRN (12:13)
[2020-06-25] MEDS: NUT.TX.IMP.RENAL FXN,LAC-REDUC (Nepro) 237 ML VANILLA PO SCH ×2 (13:00→18:00)
[2020-06-25] MEDS ORDERED: LORazepam 2 mg/ml vial IV PRN (13:15)
--- NOTE | 2020-06-25 14:01 | NUR ---
Reassessment: Pt dialyzed and extubated 06/24, to receive HD again today per EMR. OG tube removed and TF discontinued. Pt on full liquid diet per MACHINE REPAIRER following BSS d/t difficulty chewing secondary to difficulty breathing, PO intake average 50% of 3 documented meals patient not meeting estimated needs. Recommend Nepro TIDWM, pending MD verification in EMR. Per [facility] notes 06/24, stage II PU to sacrum which is stable. Per RN at critical care rounds today, wound significantly improving. Last BM 06/24, with PRN bowel care available. Will continue to monitor closely. Rec: 1. Advance to renal diet per MACHINE REPAIRER/MD recs 2. Nepro TIDWM, pending MD verification in EMR 3. Routine bowel care; Yari per 4. Weekly wts Addendum: 06/25/20 at [address] Amended: Links added. Addendum: 06/25/20 at [address] RD agrees w/ above materials intern note.
[2020-06-25] MEDS ORDERED: ziprasidone IM 20mg inj **IM only IM ONE (14:35)
--- NOTE | 2020-06-25 14:35 | NUR ---
Patient restless in bed, pulling at lines and medical equipment. Alert oriented only to self. New order for Geodon 10mg IM x1 per Dr. Marquez.
--- NOTE | 2020-06-25 15:00 | NUR ---
Dr. Marquez notified patient in afib, base line a-flutter or SR/ST. Pt on PO amiodarone. No new orders, will continue to monitor.
[2020-06-25] MEDS: dexmedetomidine/D5W 100mL 100 ML IV PRN (17:42)
--- NOTE | 2020-06-25 18:00 | NUR ---
Patient in room ICU 2041. I have received report from FARIHA Cortez and had the opportunity to ask questions and assume patient care.
[2020-06-25] MEDS ORDERED: temazepam 15mg capsule PO SCH (19:00)
--- NOTE | 2020-06-25 19:40 | NUR ---
Pt converted to SR at 1939.
[2020-06-26] VITALS (24 sets, daily range): BP systolic 100–154; BP diastolic 63–100
--- NOTE | 2020-06-26 00:20 | NUR ---
Pt's O2 Sat dropped down to 70%, appeared to be over sedated. Precedex was turned off 10 min earlier. Pt was placed on BiPAP, now sating at 95%
[2020-06-26] MEDS: mineral oil/petrolatum ophthal oint EACHEYE SCH ×4 (02:00→20:00)
[2020-06-26 03:02] LABS: ALANINE AMINOTRANSFERASE 53 U/L (12-78); ALBUMIN 2.7 G/DL (3.4-5.0); ALBUMIN/GLOBULIN RATIO 0.7 (1.1-1.5); ALKALINE PHOSPHATASE 410 IU/L (46-116); ANION GAP 14 (8-16); ASPARTATE AMINO TRANSFERASE 24 U/L (10-37); BILIRUBIN,TOTAL 0.8 MG/DL (0.1-1.0); BLOOD UREA NITROGEN 67 MG/DL (7-18); BUN/CREATININE RATIO 16.1 (5.4-32.0); CALCIUM 8.8 MG/DL (8.5-10.1); CHLORIDE 96 MMOL/L (99-107); CREATININE 4.16 MG/DL (0.60-1.10); GLUCOSE 113 MG/DL (70-104); MAGNESIUM 2.1 MG/DL (1.5-2.4); PHOSPHORUS 5.7 MG/DL (2.3-4.5); POTASSIUM 5.3 MMOL/L (3.5-5.1); PREALBUMIN 15.2 MG/DL (19-36); SODIUM 137 MMOL/L (135-145); TOTAL CARBON DIOXIDE 27.3 MMOL/L (24-32); TOTAL PROTEIN 6.7 G/DL (6.4-8.2); eGFR 15 ML/MIN
[2020-06-26 03:12] LABS: BASOPHILS % (AUTO) 0.5 % (0-1); EOSINOPHILS # (AUTO) 0.1 X10'3 (0-0.9); EOSINOPHILS % (AUTO) 1.3 % (0-6); HEMATOCRIT 24.8 % (42.0-52.0); HEMOGLOBIN 7.7 g/dl (14.0-17.9); LYMPHOCYTES % (AUTO) 10.3 % (21-51); MEAN CORPUSCULAR HEMOGLOBIN 27.3 PG (27.0-31.0); MEAN CORPUSCULAR HGB CONC 31.2 g/dL (33.0-36.5); MEAN CORPUSCULAR VOLUME 87.6 FL (78-98); MEAN PLATELET VOLUME 7.9 FL (7.4-10.4); MONOCYTES # (AUTO) 0.6 X10'3 (0-0.9); NEUTROPHILS # (AUTO) 7.7 X10'3 (1.8-7.7); NEUTROPHILS % (AUTO) 81.9 % (42-75); PLATELET COUNT 346 X10'3 (140-440); RED BLOOD COUNT 2.83 X10'6 (4.70-6.10); RED CELL DISTRIBUTION WIDTH 19.8 % (11.5-14.5); WHITE BLOOD COUNT 9.4 X10'3 (4.5-11.0)
--- NOTE | 2020-06-26 06:14 | NUR ---
Problems reprioritized. Patient report given, questions answered & plan of care reviewed with FARIHA Sal.
[2020-06-26] MEDS: calcium acetate 667mg (PhosLO) capsule OGT SCH ×4 (07:00→17:00)
[2020-06-26] MEDS: vitamin B comp w/Vit. C tab 1 TAB TABLET PO SCH (08:24)
[2020-06-26] MEDS: calcitriol 0.25mcg capsule PO SCH (08:26)
[2020-06-26] MEDS: apixaban 5mg tablet OGT SCH ×2 (08:26→21:17)
[2020-06-26] MEDS: cholecalciferol (vitamin D3) 1,000 unit (25mcg) tablet OGT SCH (08:26)
[2020-06-26] MEDS: lactobacillus rhamnosus 10,000 MMU CELLS/CAPSULE OGT SCH (08:26)
[2020-06-26] MEDS: simethicone 80mg chew tab OGT SCH ×3 (08:27→21:17)
[2020-06-26] MEDS: midodrine 5mg tablet OGT SCH ×3 (08:27→16:00)
[2020-06-26] MEDS: lansoprazole 15mg solutab OGT SCH (08:27)
[2020-06-26] MEDS: levetiracetam 100mg/ml oral solution 5ml UD cup OGT SCH ×2 (08:28→21:17)
[2020-06-26] MEDS: carVEDilol 3.125mg tablet OGT SCH ×2 (08:28→21:17)
[2020-06-26] MEDS: NUT.TX.IMP.RENAL FXN,LAC-REDUC (Nepro) 237 ML VANILLA PO SCH ×3 (08:29→18:00)
--- NOTE | 2020-06-26 11:25 | NUR ---
patient was turned to his left side and rectal tube was removed. patient went to Afib after the removal with rates of 100 to 120's. Patient appears in no acute distress, awake and conversant. Dr Norberto march.
--- NOTE | 2020-06-26 14:15 | NUR ---
patient remains on A fib, respiration 25, saturation 90 to 94 on 4 liters,brother at bedside, requested that patient be put on BIPAP,explained to him that patient saturation is in the 90's and does not appear to be in distress. patient placed on BIPAP and 15 minutes on BIPAP patient started desaturating to 70's , FIO2 increased to 100 but still desaturating, Rhina the charge nurse was notified .
[2020-06-26] MEDS ORDERED: heparin 1,000 units/ml 10ml inj HE ONE ×2 (14:50)
[2020-06-26] MEDS ORDERED: albumin (human) 25% 100ml IV 100 ML IV PRN (14:50)
[2020-06-26 14:56] LABS: ABG BASE EXCESS -4.8 mmol/L (-2.0-2.0); ABG HCO3 28.1 mmol/L (22.0-26.0); ABG OXYGEN SATURATION 84.3 % (94-97); ABG PO2 (T) 63.7 mmHg (75.0-100.0); ALLEN'S TEST POSITIVE; FCOHb 1.7 % (0.0-3.9); FMetHb 0.3 % (0.0-1.5); FO2Hb 82.6 % (94-97); RESPIRATORY RATE 20 b/min; TOTAL HEMOGLOBIN 9.5 G/dl (14.0-18.0)
[2020-06-26] MEDS ORDERED: midazolam 1 mg/ML 2ml injection ONE (15:00)
--- NOTE | 2020-06-26 15:10 | NUR ---
Patient intubated size 8 24 on the lip, vent settings of FIO2 100% ,TV 450,peep 5, rate 20. Propofol at 5 mcg/kg/hr.
[2020-06-26] MEDS ORDERED: propofol 1000mg/100ml bottle 100 ML IV ONE (15:17)
[2020-06-26] MEDS ORDERED: propofol 1000mg/100ml bottle 100 ML IV SCH (15:20)
[2020-06-26] MEDS ORDERED: fentaNYL/PF 50MCG/1 ML 2ML syringe IV PRN (16:30)
[2020-06-26] MEDS ORDERED: midazolam 100mg in NS 100ml 100 ML IV PRN (16:30)
[2020-06-26] MEDS ORDERED: midazolam 1 mg/ML 2ml injection IV ONE (16:30)
[2020-06-26 17:27] LABS: ABG BASE EXCESS -3.1 mmol/L (-2.0-2.0); ABG HCO3 25.4 mmol/L (22.0-26.0); ABG OXYGEN SATURATION 99.2 % (94-97); ABG PCO2 (T) 66.5 mmHg (35.0-48.0); ABG PO2 (T) 176.3 mmHg (75.0-100.0); ALLEN'S TEST POSITIVE; FCOHb 1.2 % (0.0-3.9); PEEP 5 cm H2O; RESPIRATORY RATE 18 b/min; TIDAL VOLUME 450 mL; TOTAL HEMOGLOBIN 9.2 G/dl (14.0-18.0)
[2020-06-26] MEDS: FENTANYL-0.9 % NACL/PF 100 ML IV PRN (17:57)
--- NOTE | 2020-06-26 18:30 | NUR ---
Patient in room ICU 2041. I have received report from Jonelle FRIED and had the opportunity to ask questions and assume patient are.
[2020-06-26] MEDS: propofol 1000mg/100ml bottle 100 ML IV SCH ×2 (18:49→22:48)
[2020-06-26] MEDS: amiodarone 200mg tablet OGT SCH (21:18)
[2020-06-27] VITALS (24 sets, daily range): BP systolic 92–126; BP diastolic 48–70
[2020-06-27] MEDS: mineral oil/petrolatum ophthal oint EACHEYE SCH ×4 (02:00→20:05)
[2020-06-27 02:53] LABS: BASOPHILS % (AUTO) 0.3 % (0-1); EOSINOPHILS # (AUTO) 0.1 X10'3 (0-0.9); EOSINOPHILS % (AUTO) 0.6 % (0-6); HEMATOCRIT 23.6 % (42.0-52.0); HEMOGLOBIN 7.1 g/dl (14.0-17.9); LYMPHOCYTES # (AUTO) 1.2 X10'3 (1.1-4.8); LYMPHOCYTES % (AUTO) 9.1 % (21-51); MEAN CORPUSCULAR HEMOGLOBIN 26.1 PG (27.0-31.0); MEAN CORPUSCULAR HGB CONC 30.2 g/dL (33.0-36.5); MEAN CORPUSCULAR VOLUME 86.7 FL (78-98); MEAN PLATELET VOLUME 7.4 FL (7.4-10.4); MONOCYTES # (AUTO) 0.7 X10'3 (0-0.9); MONOCYTES % (AUTO) 5.7 % (2-12); NEUTROPHILS # (AUTO) 10.9 X10'3 (1.8-7.7); NEUTROPHILS % (AUTO) 84.3 % (42-75); PLATELET COUNT 366 X10'3 (140-440); RED BLOOD COUNT 2.72 X10'6 (4.70-6.10); RED CELL DISTRIBUTION WIDTH 19.1 % (11.5-14.5)
[2020-06-27 03:04] LABS: % IRON SATURATION 10 % (11-46); IRON 14 UG/DL (53-167); TOTAL IRON BINDING CAPACITY 147 UG/DL (259-388)
[2020-06-27 03:36] LABS: ALANINE AMINOTRANSFERASE 57 U/L (12-78); ALBUMIN 2.3 G/DL (3.4-5.0); ALBUMIN/GLOBULIN RATIO 0.7 (1.1-1.5); ALKALINE PHOSPHATASE 338 IU/L (46-116); ANION GAP 15 (8-16); ASPARTATE AMINO TRANSFERASE 39 U/L (10-37); BILIRUBIN,TOTAL 0.8 MG/DL (0.1-1.0); BLOOD UREA NITROGEN 44 MG/DL (7-18); BUN/CREATININE RATIO 13.6 (5.4-32.0); CALCIUM 9.1 MG/DL (8.5-10.1); CHLORIDE 102 MMOL/L (99-107); CREATININE 3.23 MG/DL (0.60-1.10); GLUCOSE 99 MG/DL (70-104); MAGNESIUM 2.1 MG/DL (1.5-2.4); PHOSPHORUS 3.1 MG/DL (2.3-4.5); SODIUM 143 MMOL/L (135-145); TOTAL CARBON DIOXIDE 26.3 MMOL/L (24-32); TOTAL PROTEIN 5.8 G/DL (6.4-8.2); TRIGLYCERIDES 113 MG/DL (20-135); eGFR 19 ML/MIN
[2020-06-27 03:38] LABS: FERRITIN 1383 NG/ML (26-388)
[2020-06-27 04:08] LABS: ABG BASE EXCESS 1.7 mmol/L (-2.0-2.0); ABG HCO3 23.7 mmol/L (22.0-26.0); ABG OXYGEN SATURATION 96.8 % (94-97); ABG PCO2 (T) 27.2 mmHg (35.0-48.0); ABG PO2 (T) 79.8 mmHg (75.0-100.0); ALLEN'S TEST Modified; FCOHb 1.2 % (0.0-3.9); FMetHb 0.3 % (0.0-1.5); FO2Hb 95.3 % (94-97); PEEP 5 cm H2O; RESPIRATORY RATE 24 b/min; TIDAL VOLUME 450 mL; TOTAL HEMOGLOBIN 7.8 G/dl (14.0-18.0)
[2020-06-27] MEDS: propofol 1000mg/100ml bottle 100 ML IV SCH ×3 (05:48→18:52)
--- NOTE | 2020-06-27 06:14 | NUR ---
Problems reprioritized. Patient report given, questions answered & plan of care reviewed with Jonelle FRIED.
[2020-06-27] MEDS: FENTANYL-0.9 % NACL/PF 100 ML IV PRN ×2 (07:01→21:38)
[2020-06-27] MEDS: lansoprazole 15mg solutab OGT SCH (07:44)
[2020-06-27] MEDS: simethicone 80mg chew tab OGT SCH ×3 (07:44→20:05)
[2020-06-27] MEDS: lactobacillus rhamnosus 10,000 MMU CELLS/CAPSULE OGT SCH (07:45)
[2020-06-27] MEDS: apixaban 5mg tablet OGT SCH ×2 (07:45→20:05)
[2020-06-27] MEDS: levetiracetam 100mg/ml oral solution 5ml UD cup OGT SCH ×2 (07:45→20:05)
[2020-06-27] MEDS: cholecalciferol (vitamin D3) 1,000 unit (25mcg) tablet OGT SCH (07:45)
[2020-06-27] MEDS: vitamin B comp w/Vit. C tab 1 TAB TABLET PO SCH (07:45)
[2020-06-27] MEDS: calcium acetate 667mg (PhosLO) capsule OGT SCH ×3 (07:46→16:52)
[2020-06-27] MEDS: midodrine 5mg tablet OGT SCH ×3 (07:46→16:52)
[2020-06-27] MEDS: amiodarone 200mg tablet OGT SCH ×2 (07:46→20:05)
[2020-06-27] MEDS: carVEDilol 3.125mg tablet OGT SCH ×2 (07:46→19:25)
[2020-06-27] MEDS: calcitriol 0.25mcg capsule PO SCH (07:46)
[2020-06-27] MEDS ORDERED: heparin 1,000 units/ml 10ml inj HE ONE ×2 (08:00)
[2020-06-27] MEDS ORDERED: EPOETIN ALFA-EPBX 20,000 UNIT/ML 1 ML MDV IV ONE (08:00)
[2020-06-27] MEDS ORDERED: albumin (human) 25% 100ml IV 100 ML IV PRN (08:00)
[2020-06-27] MEDS: iron sucrose complex injection 200 MG in normal saline 100ml IV soln 100 ML IV SCH (09:49)
[2020-06-27] MEDS ORDERED: vancomycin/NS 1 GM ADD-VANTAGE 250 ML X 1 DOSE IV ONE (11:05)
[2020-06-27] MEDS ORDERED: VANCOMYCIN 750MG IV in NS 250 ML IV ONE (11:10)
--- NOTE | 2020-06-27 13:34 | NUR ---
TF consult: Pt intubated due becoming suddenly obtunded per EMR. Pt airway was pooled with curdy white secretions upon intubation per MD note. Pt with OG tube in place; to start at a trickle TF at 20 ml/hr per joinery patternmaker, see TF recs below. Last BM 06/25 with PRN bowel care available. Will continue to monitor closely. Rec: 1. Continuous trickle TF per MD using Vital High Protein at 20 ml/hr. To provide 480 ml total volume, 480 kcal, 42 g protein, 401ml water. 2. No water flush at this time given HD 3. Once OK to advance goal rate per MD, continuous TF using Vital High Protein with goal rate of 80 ml/hr. 4. PALB q Tuesday/; daily wts 5. Routine bowel care 6. Phoslo per MD Addendum: 06/27/20 at [address] Amended: Links added. Addendum: 06/27/20 at [address] I have reviewed and agree with note by post graduate internship. Deneen Fisher RD
[2020-06-27] MEDS: piperacillin/tazo 3.375gm/50 ML IV SCH ×2 (15:38→16:00)
--- NOTE | 2020-06-27 18:20 | NUR ---
Patient in room ICU 2041. I have received report from FARIHA Campbell and had the opportunity to ask questions and assume patient care.
[2020-06-27] MEDS ORDERED: mineral oil/petrolatum ophthal oint EACHEYE SCH (20:00)
[2020-06-28] VITALS (24 sets, daily range): BP systolic 93–141; BP diastolic 47–71
--- NOTE | 2020-06-28 | NUR ---
Patient wakes up spontaneously and to verbal stimuli. Patient is confused at times and will pull at gown, blankets and anything within reach. Patient does respond to reorientation and directions to stop pulling at items. Patient is able to nod his head 'yes' and 'no' in response to questions. Patient moves all extremities well.
[2020-06-28] MEDS: piperacillin/tazo 3.375gm/50 ML IV SCH ×3 (00:18→20:38)
[2020-06-28] MEDS: mineral oil/petrolatum ophthal oint EACHEYE SCH ×4 (02:16→20:35)
--- NOTE | 2020-06-28 02:30 | NUR ---
Patient back in A-Fibrillation. Patient experienced a coughing fit after ET tube suctioning.
[2020-06-28 03:09] LABS: ALANINE AMINOTRANSFERASE 45 U/L (12-78); ALBUMIN 2.2 G/DL (3.4-5.0); ALBUMIN/GLOBULIN RATIO 0.6 (1.1-1.5); ALKALINE PHOSPHATASE 317 IU/L (46-116); ANION GAP 17 (8-16); ASPARTATE AMINO TRANSFERASE 21 U/L (10-37); BILIRUBIN,TOTAL 0.8 MG/DL (0.1-1.0); BLOOD UREA NITROGEN 52 MG/DL (7-18); BUN/CREATININE RATIO 12.9 (5.4-32.0); CALCIUM 8.7 MG/DL (8.5-10.1); CHLORIDE 102 MMOL/L (99-107); CREATININE 4.04 MG/DL (0.60-1.10); GLUCOSE 105 MG/DL (70-104); MAGNESIUM 2.1 MG/DL (1.5-2.4); PHOSPHORUS 2.8 MG/DL (2.3-4.5); POTASSIUM 3.9 MMOL/L (3.5-5.1); SODIUM 143 MMOL/L (135-145); TOTAL CARBON DIOXIDE 23.7 MMOL/L (24-32); TOTAL PROTEIN 5.8 G/DL (6.4-8.2); TRIGLYCERIDES 114 MG/DL (20-135); eGFR 15 ML/MIN
[2020-06-28 03:12] LABS: BASOPHILS # (AUTO) 0.1 X10'3 (0-0.2); BASOPHILS % (AUTO) 1.2 % (0-1); EOSINOPHILS # (AUTO) 0.3 X10'3 (0-0.9); EOSINOPHILS % (AUTO) 3.8 % (0-6); HEMATOCRIT 23.3 % (42.0-52.0); HEMOGLOBIN 7.3 g/dl (14.0-17.9); LYMPHOCYTES # (AUTO) 1.8 X10'3 (1.1-4.8); LYMPHOCYTES % (AUTO) 21.6 % (21-51); MEAN CORPUSCULAR HEMOGLOBIN 27.1 PG (27.0-31.0); MEAN CORPUSCULAR HGB CONC 31.4 g/dL (33.0-36.5); MEAN PLATELET VOLUME 7.5 FL (7.4-10.4); MONOCYTES # (AUTO) 0.5 X10'3 (0-0.9); MONOCYTES % (AUTO) 6.5 % (2-12); NEUTROPHILS # (AUTO) 5.6 X10'3 (1.8-7.7); NEUTROPHILS % (AUTO) 66.9 % (42-75); PLATELET COUNT 371 X10'3 (140-440); RED BLOOD COUNT 2.71 X10'6 (4.70-6.10); RED CELL DISTRIBUTION WIDTH 19.8 % (11.5-14.5); WHITE BLOOD COUNT 8.4 X10'3 (4.5-11.0)
[2020-06-28] MEDS: ipratropium/albuterol 3ml nebule NEB PRN (03:39)
[2020-06-28 04:22] LABS: ABG BASE EXCESS 0.7 mmol/L (-2.0-2.0); ABG HCO3 23.8 mmol/L (22.0-26.0); ABG OXYGEN SATURATION 89.2 % (94-97); ABG PCO2 (T) 31.2 mmHg (35.0-48.0); ABG PO2 (T) 53.6 mmHg (75.0-100.0); ALLEN'S TEST Modified; FCOHb 1.1 % (0.0-3.9); FMetHb 0.2 % (0.0-1.5); PATIENT TEMPERATURE 36.4; PEEP 5 cm H2O; RESPIRATORY RATE 20 b/min; TIDAL VOLUME 450 mL; TOTAL HEMOGLOBIN 7.8 G/dl (14.0-18.0)
--- NOTE | 2020-06-28 04:36 | NUR ---
Rounds with Dr. Arambula. Reviewed current ABG pO2 54%, SpO2 100%. RT had increased FiO2 to 50 %. Per MD okay to titrate back down to FiO2 40%. Titrate to SpO2 value. Rate change of 16 okay. No need for repeat ABG at this time.
--- NOTE | 2020-06-28 06:12 | NUR ---
Problems reprioritized. Patient report given, questions answered & plan of care reviewed with FARIHA Morris.
[2020-06-28 06:30] LABS: ANISOCYTOSIS 2+; PLATELET ESTIMATE NORMAL
[2020-06-28 06:31] LABS: POIKILOCYTOSIS 1+
[2020-06-28 06:32] LABS: HYPOCHROMASIA 1+
[2020-06-28] MEDS: carVEDilol 3.125mg tablet OGT SCH ×2 (07:03→20:00)
[2020-06-28] MEDS: calcitriol 0.25mcg capsule PO SCH (07:04)
[2020-06-28] MEDS: midodrine 5mg tablet OGT SCH ×3 (07:21→15:17)
[2020-06-28] MEDS: lansoprazole 15mg solutab OGT SCH (07:21)
[2020-06-28] MEDS: calcium acetate 667mg (PhosLO) capsule OGT SCH ×3 (07:21→17:36)
[2020-06-28] MEDS: levetiracetam 100mg/ml oral solution 5ml UD cup OGT SCH ×2 (07:21→20:36)
[2020-06-28] MEDS: amiodarone 200mg tablet OGT SCH ×3 (07:22→20:36)
[2020-06-28] MEDS: apixaban 5mg tablet OGT SCH ×2 (07:22→20:36)
[2020-06-28] MEDS: cholecalciferol (vitamin D3) 1,000 unit (25mcg) tablet OGT SCH (07:22)
[2020-06-28] MEDS: lactobacillus rhamnosus 10,000 MMU CELLS/CAPSULE OGT SCH (07:22)
[2020-06-28] MEDS: vitamin B comp w/Vit. C tab 1 TAB TABLET OGT SCH (07:22)
[2020-06-28] MEDS: iron sucrose complex injection 200 MG in normal saline 100ml IV soln 100 ML IV SCH (07:27)
[2020-06-28] MEDS: simethicone 80mg chew tab OGT SCH ×3 (07:27→20:36)
--- NOTE | 2020-06-28 07:54 | NUR ---
updated on all abnormal labs. Notified that coreg and amiodarone were held for decreased heart rate.
[2020-06-28] MEDS ORDERED: EPOETIN ALFA-EPBX 20,000 UNIT/ML 1 ML MDV IV ONE (08:00)
[2020-06-28] MEDS ORDERED: albumin (human) 25% 100ml IV 100 ML IV PRN (08:00)
[2020-06-28] MEDS ORDERED: heparin 1,000 units/ml 10ml inj HE ONE ×2 (08:00)
[2020-06-28] MEDS: propofol 1000mg/100ml bottle 100 ML IV SCH ×2 (09:31→21:30)
[2020-06-28] MEDS: NORepinephrine 8mg/ 250ml NS 250 ML IV SCH ×2 (10:33→22:25)
[2020-06-28] MEDS: FENTANYL-0.9 % NACL/PF 100 ML IV PRN (11:32)
[2020-06-28] MEDS: VANCOMYCIN 750MG IV in NS 250 ML IV SCH (11:36)
--- NOTE | 2020-06-28 18:30 | NUR ---
Patient in room ICU 2041. I have received report from FARIHA Morris and had the opportunity to ask questions and assume patient care.
[2020-06-29] VITALS (23 sets, daily range): BP systolic 98–152; BP diastolic 51–84
[2020-06-29] MEDS: mineral oil/petrolatum ophthal oint EACHEYE SCH ×4 (02:57→20:15)
[2020-06-29 03:32] LABS: ABG HCO3 25.4 mmol/L (22.0-26.0); ABG OXYGEN SATURATION 99.1 % (94-97); ABG PCO2 (T) 33.9 mmHg (35.0-48.0); ABG PO2 (T) 146.2 mmHg (75.0-100.0); FMetHb 0.3 % (0.0-1.5); FO2Hb 97.8 % (94-97); PATIENT TEMPERATURE 36.5; PEEP 5 cm H2O; RESPIRATORY RATE 16 b/min; TIDAL VOLUME 450 mL; TOTAL HEMOGLOBIN 8.4 G/dl (14.0-18.0)
[2020-06-29 04:03] LABS: BASOPHILS # (AUTO) 0.2 X10'3 (0-0.2); BASOPHILS % (AUTO) 1.8 % (0-1); EOSINOPHILS # (AUTO) 0.5 X10'3 (0-0.9); EOSINOPHILS % (AUTO) 5.4 % (0-6); HEMATOCRIT 24.8 % (42.0-52.0); HEMOGLOBIN 7.8 g/dl (14.0-17.9); LYMPHOCYTES # (AUTO) 1.7 X10'3 (1.1-4.8); LYMPHOCYTES % (AUTO) 18.3 % (21-51); MEAN CORPUSCULAR HGB CONC 31.3 g/dL (33.0-36.5); MEAN CORPUSCULAR VOLUME 86.3 FL (78-98); MEAN PLATELET VOLUME 7.4 FL (7.4-10.4); MONOCYTES # (AUTO) 0.8 X10'3 (0-0.9); MONOCYTES % (AUTO) 9.1 % (2-12); NEUTROPHILS % (AUTO) 65.4 % (42-75); PLATELET COUNT 380 X10'3 (140-440); RED BLOOD COUNT 2.87 X10'6 (4.70-6.10); WHITE BLOOD COUNT 9.1 X10'3 (4.5-11.0)
[2020-06-29 04:09] LABS: ALANINE AMINOTRANSFERASE 39 U/L (12-78); ALBUMIN 2.2 G/DL (3.4-5.0); ALBUMIN/GLOBULIN RATIO 0.6 (1.1-1.5); ALKALINE PHOSPHATASE 315 IU/L (46-116); ANION GAP 14 (8-16); ASPARTATE AMINO TRANSFERASE 18 U/L (10-37); BILIRUBIN,TOTAL 0.8 MG/DL (0.1-1.0); BLOOD UREA NITROGEN 27 MG/DL (7-18); CALCIUM 8.5 MG/DL (8.5-10.1); CHLORIDE 99 MMOL/L (99-107); GLUCOSE 112 MG/DL (70-104); MAGNESIUM 1.9 MG/DL (1.5-2.4); PHOSPHORUS 1.9 MG/DL (2.3-4.5); SODIUM 140 MMOL/L (135-145); eGFR 21 ML/MIN
--- NOTE | 2020-06-29 04:50 | NUR ---
Rounds with Dr. Woodward. Addressed patients range of cardiac rhythms throughout shift ranging from bradycardia in the 30's with what appears to be skipped QRS complexs, junctional rhythm periods with patient heart rate increasing to atrial fibrillation with a rate in the 120's. These rhythm changes are transient in nature but are frequent. Sedation medication titrated without effect on heart rate. It appears that it does not matter if patient is awake or sleeping. Patient remains on Levophed for blood pressure support. Cardiology is following patient. Addressed Current lab values, Phos level 1.9. Dr. Woodward would like Nephrology to make determination on replacement.
[2020-06-29 05:50] LABS: ANISOCYTOSIS 2+; ELLIPTOCYTES 1+; HYPOCHROMASIA 1+; PLATELET ESTIMATE NORMAL
[2020-06-29] MEDS: propofol 1000mg/100ml bottle 100 ML IV SCH (06:14)
--- NOTE | 2020-06-29 06:47 | NUR ---
Problems reprioritized. Patient report given, questions answered & plan of care reviewed with FARIHA Butler.
--- NOTE | 2020-06-29 06:56 | NUR ---
Patient in room ICU 2041. I have received report from FARIHA Guzman and had the opportunity to ask questions and assume patient care.
[2020-06-29] MEDS: calcium acetate 667mg (PhosLO) capsule OGT SCH ×3 (07:00→17:00)
[2020-06-29] MEDS: carVEDilol 3.125mg tablet OGT SCH ×2 (08:00→20:00)
[2020-06-29] MEDS: vitamin B comp w/Vit. C tab 1 TAB TABLET OGT SCH (09:55)
[2020-06-29] MEDS: levetiracetam 100mg/ml oral solution 5ml UD cup OGT SCH ×2 (09:55→20:15)
[2020-06-29] MEDS: cholecalciferol (vitamin D3) 1,000 unit (25mcg) tablet OGT SCH (09:56)
[2020-06-29] MEDS: calcitriol 0.25mcg capsule PO SCH ×2 (09:56→10:24)
[2020-06-29] MEDS: simethicone 80mg chew tab OGT SCH ×3 (09:56→20:16)
[2020-06-29] MEDS: midodrine 5mg tablet OGT SCH ×3 (09:56→17:45)
[2020-06-29] MEDS: lactobacillus rhamnosus 10,000 MMU CELLS/CAPSULE OGT SCH (09:56)
[2020-06-29] MEDS: apixaban 5mg tablet OGT SCH ×2 (09:56→20:15)
[2020-06-29] MEDS: piperacillin/tazo 3.375gm/50 ML IV SCH ×2 (09:57→20:15)
[2020-06-29] MEDS: iron sucrose complex injection 200 MG in normal saline 100ml IV soln 100 ML IV SCH (09:57)
[2020-06-29] MEDS: lansoprazole 15mg solutab OGT SCH (10:05)
[2020-06-29] MEDS: amiodarone 200mg tablet OGT SCH ×2 (10:05→20:16)
[2020-06-29] MEDS: NORepinephrine 8mg/ 250ml NS 250 ML IV SCH ×2 (10:35→22:45)
[2020-06-29] MEDS: VANCOMYCIN 750MG IV in NS 250 ML IV SCH (12:55)
--- NOTE | 2020-06-29 18:06 | NUR ---
Patient in room ICU 2041. I have received report from FARIHA Butler and had the opportunity to ask questions and assume patient care.
[2020-06-29] MEDS: FENTANYL-0.9 % NACL/PF 100 ML IV PRN (20:24)
[2020-06-30] VITALS (24 sets, daily range): BP systolic 95–132; BP diastolic 46–74
[2020-06-30 02:33] LABS: BASOPHILS # (AUTO) 0.1 X10'3 (0-0.2); BASOPHILS % (AUTO) 1.3 % (0-1); EOSINOPHILS # (AUTO) 0.5 X10'3 (0-0.9); EOSINOPHILS % (AUTO) 5.5 % (0-6); HEMATOCRIT 25.7 % (42.0-52.0); HEMOGLOBIN 7.8 g/dl (14.0-17.9); LYMPHOCYTES # (AUTO) 1.6 X10'3 (1.1-4.8); LYMPHOCYTES % (AUTO) 18.6 % (21-51); MEAN CORPUSCULAR HEMOGLOBIN 26.6 PG (27.0-31.0); MEAN CORPUSCULAR HGB CONC 30.3 g/dL (33.0-36.5); MEAN CORPUSCULAR VOLUME 87.9 FL (78-98); MEAN PLATELET VOLUME 7.3 FL (7.4-10.4); MONOCYTES # (AUTO) 0.8 X10'3 (0-0.9); MONOCYTES % (AUTO) 8.9 % (2-12); NEUTROPHILS # (AUTO) 5.8 X10'3 (1.8-7.7); NEUTROPHILS % (AUTO) 65.7 % (42-75); PLATELET COUNT 365 X10'3 (140-440); RED BLOOD COUNT 2.92 X10'6 (4.70-6.10); RED CELL DISTRIBUTION WIDTH 20.1 % (11.5-14.5); WHITE BLOOD COUNT 8.8 X10'3 (4.5-11.0)
[2020-06-30] MEDS: mineral oil/petrolatum ophthal oint EACHEYE SCH ×4 (02:47→20:09)
[2020-06-30 02:54] LABS: ALANINE AMINOTRANSFERASE 31 U/L (12-78); ALBUMIN 2.2 G/DL (3.4-5.0); ALBUMIN/GLOBULIN RATIO 0.6 (1.1-1.5); ALKALINE PHOSPHATASE 320 IU/L (46-116); ANION GAP 10 (8-16); ASPARTATE AMINO TRANSFERASE 12 U/L (10-37); BILIRUBIN,TOTAL 0.9 MG/DL (0.1-1.0); BLOOD UREA NITROGEN 33 MG/DL (7-18); BUN/CREATININE RATIO 8.7 (5.4-32.0); CALCIUM 8.7 MG/DL (8.5-10.1); CHLORIDE 101 MMOL/L (99-107); CREATININE 3.78 MG/DL (0.60-1.10); GLUCOSE 105 MG/DL (70-104); PHOSPHORUS 2.3 MG/DL (2.3-4.5); POTASSIUM 4.2 MMOL/L (3.5-5.1); PREALBUMIN 12.1 MG/DL (19-36); SODIUM 140 MMOL/L (135-145); TOTAL CARBON DIOXIDE 29.4 MMOL/L (24-32); TOTAL PROTEIN 6.2 G/DL (6.4-8.2); eGFR 16 ML/MIN
[2020-06-30 03:51] LABS: ABG BASE EXCESS 2.7 mmol/L (-2.0-2.0); ABG HCO3 27.3 mmol/L (22.0-26.0); ABG OXYGEN SATURATION 98.5 % (94-97); ABG PCO2 (T) 41.2 mmHg (35.0-48.0); ABG PO2 (T) 115.4 mmHg (75.0-100.0); ALLEN'S TEST Modified; FCOHb 1.1 % (0.0-3.9); FMetHb 0.3 % (0.0-1.5); FO2Hb 97.1 % (94-97); PATIENT TEMPERATURE 36.5; PEEP 5 cm H2O; RESPIRATORY RATE 14 b/min; TIDAL VOLUME 450 mL; TOTAL HEMOGLOBIN 8.4 G/dl (14.0-18.0)
--- NOTE | 2020-06-30 05:00 | NUR ---
Rounds with Dr. Lacey, Reviewed changing cardiac rhythms, lab work and ABG. No new orders at this time.
--- NOTE | 2020-06-30 05:44 | NUR ---
Patient appeared to be resting throughout shift. Will wake up easily to verbal stimuli. While awake patient has coughing fits and will gag on the ET tube. Oral and ETT suctioning completed often for patient. Patient re oriented several times as to the purpose for wrist restraints while intubated. Patient appears frustrated. Education provided on plan of care, intubation and ventilator and use of restraints. Patient is able to calm down after reorientation.
--- NOTE | 2020-06-30 06:13 | NUR ---
Problems reprioritized. Patient report given, questions answered & plan of care reviewed with FARIHA Butler.
[2020-06-30] MEDS: calcitriol 0.25mcg capsule PO SCH (07:59)
[2020-06-30] MEDS ORDERED: heparin 1,000 units/ml 10ml inj HE ONE ×2 (08:00)
[2020-06-30] MEDS: carVEDilol 3.125mg tablet OGT SCH ×2 (08:00→20:00)
[2020-06-30] MEDS ORDERED: EPOETIN ALFA-EPBX 20,000 UNIT/ML 1 ML MDV IV ONE (08:00)
[2020-06-30] MEDS ORDERED: albumin (human) 25% 100ml IV 100 ML IV PRN (08:00)
[2020-06-30] MEDS: piperacillin/tazo 3.375gm/50 ML IV SCH ×2 (08:09→20:09)
[2020-06-30] MEDS: levetiracetam 100mg/ml oral solution 5ml UD cup OGT SCH ×2 (08:09→20:10)
[2020-06-30] MEDS: midodrine 5mg tablet OGT SCH ×3 (08:10→17:27)
[2020-06-30] MEDS: simethicone 80mg chew tab OGT SCH ×3 (08:10→20:10)
[2020-06-30] MEDS: amiodarone 200mg tablet OGT SCH ×2 (08:10→20:10)
[2020-06-30] MEDS: lansoprazole 15mg solutab OGT SCH (08:11)
[2020-06-30] MEDS: apixaban 5mg tablet OGT SCH ×2 (08:11→20:09)
[2020-06-30] MEDS: cholecalciferol (vitamin D3) 1,000 unit (25mcg) tablet OGT SCH (08:11)
[2020-06-30] MEDS: lactobacillus rhamnosus 10,000 MMU CELLS/CAPSULE OGT SCH (08:11)
[2020-06-30] MEDS: vitamin B comp w/Vit. C tab 1 TAB TABLET OGT SCH (08:11)
[2020-06-30] MEDS: calcium acetate 667mg (PhosLO) capsule OGT SCH ×3 (08:19→17:00)
[2020-06-30] MEDS: iron sucrose complex injection 200 MG in normal saline 100ml IV soln 100 ML IV SCH (08:19)
--- NOTE | 2020-06-30 09:50 | NUR ---
at bedside, updated her on his condition. Awake and alert, writing messages to her on whiteboard. Currently on cpap mode and tolerating well. HD in progress.
[2020-06-30] MEDS ORDERED: VANCOMYCIN LEVEL IV ONE (10:30)
--- NOTE | 2020-06-30 10:30 | NUR ---
Converted to rapid afib during HD with rate about 130
[2020-06-30] MEDS ORDERED: magnesium 2GM in 50ml NS 50 ML IV PRN (10:45)
[2020-06-30] MEDS ORDERED: magnesium 4gm in 100ml NS 100 ML IV ONE (10:45)
[2020-06-30] MEDS ORDERED: magnesium 4gm in 100ml NS 100 ML IV PRN (10:45)
--- NOTE | 2020-06-30 10:54 | NUR ---
HD in progress, anticipated Vancomycin dose [id number] after dialysis completed. Pharmacy made aware.
[2020-06-30 10:58] LABS: PLATELET ESTIMATE NORMAL
[2020-06-30 10:59] LABS: ANISOCYTOSIS 3+; ELLIPTOCYTES FEW; HYPOCHROMASIA 1+; POLYCHROMASIA FEW; SPHEROCYTES FEW; TEAR DROP CELLS FEW
--- NOTE | 2020-06-30 12:19 | NUR ---
Reassessment: Pt tolerating 20 ml/hr trickle tube feed well GRV within normal limits. Per MD advance tube feed to goal as tolerated, tube feed recs below. Last BM 06/27 with PRN bowel care available. To receive HD today with plans to remove 4 L if well tolerated, per HD-RN. Will continue to monitor closely. Rec: 1. Continuous TF per using Vital High Protein at 80 ml/hr goal. To provide 1920 ml total volume, 1920 kcal, 168 g protein, 1613 ml water. Initiate at 40 ml/hr since tolerating prior 20 ml/hr well. 2. No water flush at this time given HD 3. PALB q Tuesday/; daily wts 4. Routine bowel care 5. Phoslo per Addendum: 06/30/20 at [address] Amended: Links added. Addendum: 06/30/20 at [address] ELLIE agrees w/ above recruitment internship note.
[2020-06-30] MEDS: propofol 1000mg/100ml bottle 100 ML IV SCH (13:42)
[2020-06-30] MEDS: VANCOMYCIN 750MG IV in NS 250 ML IV SCH (14:03)
--- NOTE | 2020-06-30 14:23 | NUR ---
Tube feed with zero residuals, advanced per md and hogshead wrecker recs to 40 mls/hr.
[2020-06-30] MEDS: FENTANYL-0.9 % NACL/PF 100 ML IV PRN (17:23)
--- NOTE | 2020-06-30 18:10 | NUR ---
Patient in room ICU 2041. I have received report from FARIHA Butler. and had the opportunity to ask questions and assume patient care. Patient is awake and alert in bed. Patient currently intubated. No restraints in use. Patient using cell phone and will use call light. Patient is currently on CPAP on ventilator FiO2 30%, PEEP 5, Pressure Support 20, current respiratory rate 13, Oxygen saturation 94%. 8.0 ET tube 26cm at the teeth. Patient with Fentanyl drip at 50 mcg/hr for pain control.
--- NOTE | 2020-06-30 20:48 | NUR ---
Spoke with Dr. Lacey re: scheduled Coreg dose. HR currently in the lower 60's with SBP of 109. Per MD okay to hold dose tonight.
--- NOTE | 2020-06-30 21:00 | NUR ---
Patient appears to be fatigued, with decreased minute volume on ventilator. RT placed patient back on PRVC with a rate of 16, FiO2 30%. Patient is agreeable to wearing the restraints while sleeping tonight. Patient educated on the risk of accidental self extubation if he wakes up disoriented and pulls the ET tube or his IV lines.
[2020-07-01] VITALS (25 sets, daily range): BP systolic 93–140; BP diastolic 51–75
--- NOTE | 2020-07-01 02:00 | NUR ---
Patient awake, requesting bed reeder. Patient able to pass gas, did not have a bowel movement. RT placed patient back onto CPAP/ spontaneous. Patient attempting to communicate via writing on white board with difficulty. Patient becoming agitated. Patient denies any pain or discomfort. Patient educated on the importance of resting and sleeping. Restraints placed back on for safety when sleeping while intubated. Patient appears to fall back to sleep. Patient not maintaining minute ventilation. Patient placed back onto A/C PRVC mode with a rate of 16.
[2020-07-01] MEDS: mineral oil/petrolatum ophthal oint EACHEYE SCH ×4 (02:14→19:48)
[2020-07-01] MEDS: VANCOMYCIN LEVEL IV SCH (02:15)
[2020-07-01 02:16] LABS: BASOPHILS # (AUTO) 0.2 X10'3 (0-0.2); EOSINOPHILS # (AUTO) 0.4 X10'3 (0-0.9); LYMPHOCYTES # (AUTO) 1.7 X10'3 (1.1-4.8); MEAN CORPUSCULAR HGB CONC 30.9 g/dL (33.0-36.5)
[2020-07-01 02:29] LABS: ALANINE AMINOTRANSFERASE 27 U/L (12-78); ALBUMIN 2.2 G/DL (3.4-5.0); ALBUMIN/GLOBULIN RATIO 0.6 (1.1-1.5); ALKALINE PHOSPHATASE 318 IU/L (46-116); ANION GAP 12 (8-16); ASPARTATE AMINO TRANSFERASE 17 U/L (10-37); BILIRUBIN,TOTAL 0.8 MG/DL (0.1-1.0); BLOOD UREA NITROGEN 21 MG/DL (7-18); BUN/CREATININE RATIO 7.1 (5.4-32.0); CALCIUM 8.2 MG/DL (8.5-10.1); CHLORIDE 105 MMOL/L (99-107); CREATININE 2.95 MG/DL (0.60-1.10); GLUCOSE 125 MG/DL (70-104); MAGNESIUM 2.7 MG/DL (1.5-2.4); PHOSPHORUS 2.1 MG/DL (2.3-4.5); POTASSIUM 3.7 MMOL/L (3.5-5.1); SODIUM 144 MMOL/L (135-145); TOTAL CARBON DIOXIDE 27.2 MMOL/L (24-32); VANCOMYCIN,RANDOM 29.4 UG/ML; eGFR 22 ML/MIN
[2020-07-01 02:35] LABS: BASOPHILS % (AUTO) 2.1 % (0-1); EOSINOPHILS % (AUTO) 4.8 % (0-6); HEMATOCRIT 24.5 % (42.0-52.0); HEMOGLOBIN 7.6 g/dl (14.0-17.9); LYMPHOCYTES % (AUTO) 22.3 % (21-51); MEAN CORPUSCULAR HEMOGLOBIN 27.6 PG (27.0-31.0); MEAN CORPUSCULAR VOLUME 89.4 FL (78-98); MEAN PLATELET VOLUME 7.1 FL (7.4-10.4); MONOCYTES # (AUTO) 0.9 X10'3 (0-0.9); MONOCYTES % (AUTO) 11.8 % (2-12); NEUTROPHILS # (AUTO) 4.5 X10'3 (1.8-7.7); PLATELET COUNT 324 X10'3 (140-440); RED BLOOD COUNT 2.74 X10'6 (4.70-6.10); RED CELL DISTRIBUTION WIDTH 19.8 % (11.5-14.5); WHITE BLOOD COUNT 7.6 X10'3 (4.5-11.0)
[2020-07-01 03:52] LABS: ABG BASE EXCESS 1.8 mmol/L (-2.0-2.0); ABG OXYGEN SATURATION 96.6 % (94-97); ABG PCO2 (T) 45.7 mmHg (35.0-48.0); ABG PO2 (T) 88.8 mmHg (75.0-100.0); FCOHb 1.3 % (0.0-3.9); FMetHb 0.3 % (0.0-1.5); FO2Hb 95.1 % (94-97); PATIENT TEMPERATURE 37.1; PEEP 5 cm H2O; RESPIRATORY RATE 14 b/min; TIDAL VOLUME 450 mL; TOTAL HEMOGLOBIN 8.2 G/dl (14.0-18.0)
--- NOTE | 2020-07-01 04:56 | NUR ---
Rounds with Dr. Woodward. Update on patient status.
--- NOTE | 2020-07-01 06:25 | NUR ---
Problems reprioritized. Patient report given, questions answered & plan of care reviewed with FARIHA Alvarenga.
[2020-07-01] MEDS: calcium acetate 667mg (PhosLO) capsule OGT SCH ×2 (07:00→07:16)
[2020-07-01] MEDS: lactobacillus rhamnosus 10,000 MMU CELLS/CAPSULE OGT SCH (07:16)
[2020-07-01] MEDS: cholecalciferol (vitamin D3) 1,000 unit (25mcg) tablet OGT SCH (07:16)
[2020-07-01] MEDS: vitamin B comp w/Vit. C tab 1 TAB TABLET OGT SCH (07:16)
[2020-07-01] MEDS: amiodarone 200mg tablet OGT SCH (07:17)
[2020-07-01] MEDS: lansoprazole 15mg solutab OGT SCH (07:17)
[2020-07-01] MEDS: midodrine 5mg tablet OGT SCH ×3 (07:17→16:41)
[2020-07-01] MEDS: apixaban 5mg tablet OGT SCH (07:17)
[2020-07-01] MEDS: levetiracetam 100mg/ml oral solution 5ml UD cup OGT SCH (07:17)
[2020-07-01] MEDS: piperacillin/tazo 3.375gm/50 ML IV SCH ×2 (07:17→20:54)
[2020-07-01] MEDS: simethicone 80mg chew tab OGT SCH ×2 (07:18→13:00)
[2020-07-01] MEDS: calcitriol 0.25mcg capsule PO SCH (07:19)
[2020-07-01] MEDS: carVEDilol 3.125mg tablet OGT SCH (07:20)
[2020-07-01] MEDS: K and/or MAG REPLACEMENT MC SCH (07:22)
[2020-07-01] MEDS: iron sucrose complex injection 200 MG in normal saline 100ml IV soln 100 ML IV SCH (07:49)
[2020-07-01] MEDS ORDERED: vancomycin/NS 1 GM ADD-VANTAGE 250 ML IV PRN (08:00)
[2020-07-01 08:09] LABS: ANISOCYTOSIS 2+; PLATELET ESTIMATE NORMAL
[2020-07-01 08:10] LABS: HYPOCHROMASIA 1+; SCHISTOCYTES FEW
[2020-07-01 08:11] LABS: MICROCYTOSIS 1+; POIKILOCYTOSIS 1+; POLYCHROMASIA FEW
[2020-07-01] MEDS: FENTANYL-0.9 % NACL/PF 100 ML IV PRN (08:47)
[2020-07-01] MEDS ORDERED: racepinephrine 11.25mg/0.5ml nebule NEB PRN (10:20)
[2020-07-01] MEDS: HYDROcodone/acetaminophen 10/325mg tab PO PRN ×3 (10:52→19:49)
[2020-07-01] MEDS ORDERED: polyethylene glycol 3350 17gm powd pack OGT SCH (11:00)
[2020-07-01] MEDS ORDERED: docusate sodium 100mg/10ml UD cup OGT SCH (11:01)
--- NOTE | 2020-07-01 19:01 | NUR ---
Patient in room ICU 2041. I have received report from MANISH FRIED and had the opportunity to ask questions and assume patient care.
[2020-07-01] MEDS ORDERED: acetaminophen 325mg tablet PO PRN (20:13)
[2020-07-01] MEDS ORDERED: mag hydrox/Alum hydrox/simeth 30ml oral suspension PO PRN (20:19)
[2020-07-01] MEDS ORDERED: magnesium hydroxide 30ml (MOM) UD suspension PO PRN (20:20)
[2020-07-01] MEDS ORDERED: ondansetron 4mg rapidly disintigrating tab PO PRN (20:21)
--- NOTE | 2020-07-01 21:02 | NUR ---
NORCO WAS NEVER PULLED OR ADMINISTERED AT 7P. RN MADE AN ERROR WHEN REASSESSING THE NORCO THAT WAS GIVEN BY DAY SHIFT RN Addendum: 07/02/20 at 0616 by Bassam Serrano RN Problems reprioritized. Patient report given, questions answered & plan of care reviewed with marly tong.
[2020-07-01] MEDS: simethicone 80mg chew tab PO SCH (21:17)
[2020-07-02] VITALS (15 sets, daily range): BP systolic 98–157; BP diastolic 54–95
[2020-07-02] MEDS: mineral oil/petrolatum ophthal oint EACHEYE SCH ×4 (00:19→20:00)
[2020-07-02] MEDS: VANCOMYCIN LEVEL IV SCH (03:47)
[2020-07-02 03:51] LABS: ALANINE AMINOTRANSFERASE 24 U/L (12-78); ALBUMIN 2.3 G/DL (3.4-5.0); ALBUMIN/GLOBULIN RATIO 0.5 (1.1-1.5); ALKALINE PHOSPHATASE 292 IU/L (46-116); ANION GAP 10 (8-16); ASPARTATE AMINO TRANSFERASE 12 U/L (10-37); BILIRUBIN,TOTAL 0.8 MG/DL (0.1-1.0); BLOOD UREA NITROGEN 29 MG/DL (7-18); BUN/CREATININE RATIO 7.2 (5.4-32.0); CALCIUM 8.3 MG/DL (8.5-10.1); CHLORIDE 105 MMOL/L (99-107); CREATININE 4.01 MG/DL (0.60-1.10); GLUCOSE 102 MG/DL (70-104); MAGNESIUM 3.2 MG/DL (1.5-2.4); POTASSIUM 4.4 MMOL/L (3.5-5.1); SODIUM 144 MMOL/L (135-145); TOTAL CARBON DIOXIDE 28.7 MMOL/L (24-32); TOTAL PROTEIN 6.5 G/DL (6.4-8.2); VANCOMYCIN,RANDOM 26.1 UG/ML; eGFR 15 ML/MIN
[2020-07-02 03:56] LABS: BASOPHILS # (AUTO) 0.2 X10'3 (0-0.2); EOSINOPHILS # (AUTO) 0.5 X10'3 (0-0.9); HEMATOCRIT 25.6 % (42.0-52.0); HEMOGLOBIN 7.8 g/dl (14.0-17.9); LYMPHOCYTES # (AUTO) 1.6 X10'3 (1.1-4.8); MEAN CORPUSCULAR HGB CONC 30.6 g/dL (33.0-36.5); MONOCYTES # (AUTO) 1.1 X10'3 (0-0.9)
[2020-07-02 03:58] LABS: BASOPHILS % (AUTO) 2.1 % (0-1); EOSINOPHILS % (AUTO) 5.1 % (0-6); LYMPHOCYTES % (AUTO) 17.1 % (21-51); MEAN CORPUSCULAR HEMOGLOBIN 27.9 PG (27.0-31.0); MONOCYTES % (AUTO) 12.2 % (2-12); NEUTROPHILS # (AUTO) 5.9 X10'3 (1.8-7.7); NEUTROPHILS % (AUTO) 63.5 % (42-75); PLATELET COUNT 317 X10'3 (140-440); RED BLOOD COUNT 2.82 X10'6 (4.70-6.10); RED CELL DISTRIBUTION WIDTH 20.6 % (11.5-14.5); WHITE BLOOD COUNT 9.3 X10'3 (4.5-11.0)
[2020-07-02 06:08] LABS: ANISOCYTOSIS 3+; PLATELET ESTIMATE NORMAL
[2020-07-02 06:09] LABS: MICROCYTOSIS 1+; POIKILOCYTOSIS FEW; SCHISTOCYTES FEW
[2020-07-02] MEDS: K and/or MAG REPLACEMENT MC SCH (08:00)
[2020-07-02] MEDS: piperacillin/tazo 3.375gm/50 ML IV SCH ×2 (08:32→19:45)
[2020-07-02] MEDS: polyethylene glycol 3350 17gm powd pack PO SCH (08:33)
[2020-07-02] MEDS: iron sucrose complex injection 200 MG in normal saline 100ml IV soln 100 ML IV SCH (08:33)
[2020-07-02] MEDS: levetiracetam 250mg tablet PO SCH ×2 (08:33→19:44)
[2020-07-02] MEDS: docusate sod 100mg capsule PO SCH ×2 (08:34→19:44)
[2020-07-02] MEDS: calcitriol 0.25mcg capsule PO SCH (08:34)
[2020-07-02] MEDS: apixaban 5mg tablet PO SCH ×2 (08:34→19:45)
[2020-07-02] MEDS: calcium acetate 667mg (PhosLO) capsule PO SCH ×3 (08:34→17:00)
[2020-07-02] MEDS: simethicone 80mg chew tab PO SCH ×3 (08:35→21:13)
[2020-07-02] MEDS: lansoprazole 15mg solutab PO SCH (08:35)
[2020-07-02] MEDS: vitamin B comp w/Vit. C tab 1 TAB TABLET PO SCH (08:35)
[2020-07-02] MEDS: midodrine 5mg tablet PO SCH ×3 (08:36→16:00)
[2020-07-02] MEDS: lactobacillus rhamnosus 10,000 MMU CELLS/CAPSULE PO SCH (08:36)
[2020-07-02] MEDS: amiodarone 200mg tablet PO SCH ×2 (08:37→19:44)
[2020-07-02] MEDS: carVEDilol 3.125mg tablet PO SCH ×2 (08:37→19:45)
[2020-07-02] MEDS: cholecalciferol (vitamin D3) 1,000 unit (25mcg) tablet PO SCH (08:38)
[2020-07-02 10:19] LABS: PHOSPHORUS 3.1 MG/DL (2.3-4.5)
--- NOTE | 2020-07-02 11:20 | NUR ---
Report given to FARIHA Murdock all questions and concerns addressed. Patient transported via bed to room 3012a.
[2020-07-02] MEDS ORDERED: albumin (human) 25% 100ml IV 100 ML IV PRN (12:05)
[2020-07-02] MEDS ORDERED: normal saline 1000ml 250 ML IV PRN (12:05)
[2020-07-02] MEDS ORDERED: EPOETIN ALFA-EPBX 20,000 UNIT/ML 1 ML MDV IV ONE (12:05)
[2020-07-02] MEDS ORDERED: heparin 1,000 units/ml 10ml inj HE ONE ×2 (12:25)
[2020-07-03 02:00] VITALS: BP 108/62
[2020-07-03] MEDS: mineral oil/petrolatum ophthal oint EACHEYE SCH ×2 (02:00→08:00)
[2020-07-03] MEDS: VANCOMYCIN LEVEL IV SCH (03:00)
[2020-07-03 04:13] LABS: ALANINE AMINOTRANSFERASE 22 U/L (12-78); ALBUMIN 2.3 G/DL (3.4-5.0); ALBUMIN/GLOBULIN RATIO 0.5 (1.1-1.5); ALKALINE PHOSPHATASE 275 IU/L (46-116); ANION GAP 9 (8-16); ASPARTATE AMINO TRANSFERASE 15 U/L (10-37); BILIRUBIN,TOTAL 0.7 MG/DL (0.1-1.0); BLOOD UREA NITROGEN 20 MG/DL (7-18); BUN/CREATININE RATIO 6.4 (5.4-32.0); CALCIUM 8.2 MG/DL (8.5-10.1); CHLORIDE 103 MMOL/L (99-107); CREATININE 3.12 MG/DL (0.60-1.10); GLUCOSE 109 MG/DL (70-104); MAGNESIUM 2.7 MG/DL (1.5-2.4); POTASSIUM 4.3 MMOL/L (3.5-5.1); SODIUM 142 MMOL/L (135-145); TOTAL CARBON DIOXIDE 30.4 MMOL/L (24-32); TOTAL PROTEIN 6.5 G/DL (6.4-8.2); VANCOMYCIN,RANDOM 20.9 UG/ML; eGFR 20 ML/MIN
[2020-07-03 04:56] LABS: BASOPHILS # (AUTO) 0.2 X10'3 (0-0.2); EOSINOPHILS # (AUTO) 0.3 X10'3 (0-0.9); EOSINOPHILS % (AUTO) 4.5 % (0-6); HEMATOCRIT 26.1 % (42.0-52.0); HEMOGLOBIN 7.9 g/dl (14.0-17.9); LYMPHOCYTES # (AUTO) 1.1 X10'3 (1.1-4.8); LYMPHOCYTES % (AUTO) 14.5 % (21-51); MEAN CORPUSCULAR HEMOGLOBIN 27.5 PG (27.0-31.0); MEAN CORPUSCULAR HGB CONC 30.1 g/dL (33.0-36.5); MEAN CORPUSCULAR VOLUME 91.3 FL (78-98); MONOCYTES % (AUTO) 13.4 % (2-12); NEUTROPHILS % (AUTO) 65.6 % (42-75); PLATELET COUNT 271 X10'3 (140-440); RED BLOOD COUNT 2.86 X10'6 (4.70-6.10); RED CELL DISTRIBUTION WIDTH 21.3 % (11.5-14.5); WHITE BLOOD COUNT 7.7 X10'3 (4.5-11.0)
[2020-07-03 06:00] VITALS: BP 140/73
--- NOTE | 2020-07-03 06:20 | NUR ---
Problems reprioritized. Patient report given, questions answered & plan of care reviewed with FARIHA Montiel.
--- NOTE | 2020-07-03 06:30 | NUR ---
Patient in room PCU 3012. I have received report from FARIHA Stubbs and had the opportunity to ask questions and assume patient care.
--- NOTE | 2020-07-03 06:36 | NUR ---
Patient in room PCU 3012. I have received report from FARIHA Torres and had the opportunity to ask questions and assume patient care.
[2020-07-03] MEDS: piperacillin/tazo 3.375gm/50 ML IV SCH ×2 (07:19→19:54)
[2020-07-03] MEDS: calcitriol 0.25mcg capsule PO SCH (07:29)
[2020-07-03] MEDS: calcium acetate 667mg (PhosLO) capsule PO SCH ×3 (07:29→17:00)
[2020-07-03] MEDS: midodrine 5mg tablet PO SCH ×3 (07:30→16:00)
[2020-07-03] MEDS: cholecalciferol (vitamin D3) 1,000 unit (25mcg) tablet PO SCH (07:30)
[2020-07-03] MEDS: docusate sod 100mg capsule PO SCH ×2 (07:30→19:54)
[2020-07-03] MEDS: lansoprazole 15mg solutab PO SCH (07:30)
[2020-07-03] MEDS: levetiracetam 250mg tablet PO SCH ×2 (07:31→19:54)
[2020-07-03] MEDS: amiodarone 200mg tablet PO SCH (07:31)
[2020-07-03] MEDS: simethicone 80mg chew tab PO SCH ×3 (07:31→21:04)
[2020-07-03] MEDS: lactobacillus rhamnosus 10,000 MMU CELLS/CAPSULE PO SCH (07:31)
[2020-07-03] MEDS: vitamin B comp w/Vit. C tab 1 TAB TABLET PO SCH (07:32)
[2020-07-03] MEDS: carVEDilol 3.125mg tablet PO SCH ×2 (07:32→19:54)
[2020-07-03] MEDS: polyethylene glycol 3350 17gm powd pack PO SCH (07:43)
[2020-07-03] MEDS: apixaban 5mg tablet PO SCH ×2 (07:43→19:54)
[2020-07-03 07:56] LABS: ANISOCYTOSIS 3+; HYPOCHROMASIA 2+; PLATELET ESTIMATE NORMAL; STOMATOCYTES 1+
[2020-07-03 07:57] LABS: POIKILOCYTOSIS 1+; POLYCHROMASIA FEW
[2020-07-03] MEDS: K and/or MAG REPLACEMENT MC SCH (08:00)
[2020-07-03 11:00] VITALS: BP 112/63
--- NOTE | 2020-07-03 12:53 | NUR ---
Reassessment: Pt s/p extubation and TF discontinued 07/01, PEGGER DOBBY LOOMS recommended pureed diet 07/02 and advanced to MM5 diet today. Pt PO intake 25-50% average on pureed diet, no documented intake on MM5 at this time; pt partially meeting needs. Recommend Nepro TIDWM, pending MD verification in EMR. Pt received HD 07/02 per EMR. Last BM 06/27, receiving routine bowel care with PRN MoM available but not given. Recommend prune juice with next meal to assist with bowel regularity. Will continue to monitor closely. Rec: 1. Continue MM5 diet per PEGGER DOBBY LOOMS/MD recs 2. Nepro TIDWM, pending MD verification in EMR 3. Routine bowel care 4. Phoslo with meals per MD 5. Wts with HD Addendum: 07/03/20 at [address] Amended: Links added. Addendum: 07/03/20 at [address] I have reviewed and agree with not by financial services internship. Deneen Fisher RD
[2020-07-03] MEDS: NUT.TX.IMP.RENAL FXN,LAC-REDUC (Nepro) 237 ML VANILLA PO SCH (13:00)
[2020-07-03 15:00] VITALS: BP 149/81
[2020-07-03 18:00] VITALS: BP 160/86
--- NOTE | 2020-07-03 18:30 | NUR ---
Problems reprioritized. Patient report given, questions answered & plan of care reviewed with FARIHA Stubbs.
--- NOTE | 2020-07-03 18:39 | NUR ---
Preceptee documentation: I have reviewed and agree with all interventions, assessments performed and documented by FARIHA Espinosa. Preceptee Medication Administration: For this medication-pass time frame, all medication were reviewed, dispensed, administered and documented per hospital policy by FARIHA Espinosa.
[2020-07-03 22:00] VITALS: BP 131/76
[2020-07-04] VITALS (7 sets, daily range): BP systolic 140–169; BP diastolic 82–100
[2020-07-04] MEDS: ipratropium/albuterol 3ml nebule NEB PRN (03:07)
[2020-07-04] MEDS: VANCOMYCIN LEVEL IV SCH (03:13)
[2020-07-04 03:28] LABS: BASOPHILS # (AUTO) 0.1 X10'3 (0-0.2); BASOPHILS % (AUTO) 1.6 % (0-1); EOSINOPHILS # (AUTO) 0.3 X10'3 (0-0.9); EOSINOPHILS % (AUTO) 2.9 % (0-6); HEMATOCRIT 28.3 % (42.0-52.0); HEMOGLOBIN 8.6 g/dl (14.0-17.9); LYMPHOCYTES # (AUTO) 1.5 X10'3 (1.1-4.8); LYMPHOCYTES % (AUTO) 15.9 % (21-51); MEAN CORPUSCULAR HEMOGLOBIN 28.3 PG (27.0-31.0); MEAN CORPUSCULAR HGB CONC 30.5 g/dL (33.0-36.5); MEAN CORPUSCULAR VOLUME 92.8 FL (78-98); MEAN PLATELET VOLUME 6.9 FL (7.4-10.4); MONOCYTES # (AUTO) 1.1 X10'3 (0-0.9); MONOCYTES % (AUTO) 12.1 % (2-12); NEUTROPHILS # (AUTO) 6.2 X10'3 (1.8-7.7); NEUTROPHILS % (AUTO) 67.5 % (42-75); PLATELET COUNT 277 X10'3 (140-440); RED BLOOD COUNT 3.05 X10'6 (4.70-6.10); RED CELL DISTRIBUTION WIDTH 21.4 % (11.5-14.5); WHITE BLOOD COUNT 9.2 X10'3 (4.5-11.0)
[2020-07-04 03:34] LABS: ALANINE AMINOTRANSFERASE 20 U/L (12-78); ALBUMIN 2.5 G/DL (3.4-5.0); ALBUMIN/GLOBULIN RATIO 0.6 (1.1-1.5); ALKALINE PHOSPHATASE 277 IU/L (46-116); ANION GAP 8 (8-16); ASPARTATE AMINO TRANSFERASE 9 U/L (10-37); BILIRUBIN,TOTAL 0.8 MG/DL (0.1-1.0); BLOOD UREA NITROGEN 26 MG/DL (7-18); BUN/CREATININE RATIO 6.5 (5.4-32.0); CALCIUM 8.7 MG/DL (8.5-10.1); CHLORIDE 101 MMOL/L (99-107); CREATININE 4.02 MG/DL (0.60-1.10); GLUCOSE 141 MG/DL (70-104); MAGNESIUM 2.9 MG/DL (1.5-2.4); POTASSIUM 4.7 MMOL/L (3.5-5.1); SODIUM 140 MMOL/L (135-145); TOTAL CARBON DIOXIDE 30.8 MMOL/L (24-32); TRIGLYCERIDES 136 MG/DL (20-135); VANCOMYCIN,RANDOM 20.8 UG/ML; eGFR 15 ML/MIN
--- NOTE | 2020-07-04 04:22 | NUR ---
Paged Dr. White. PAGER ID: [phone] MESSAGE: Pt in 3012A Marcus Alejandra Dx : Afib with RVR had just had HR of 35. It came back up to 70. The pt coded before during this hospitalization. Can we get an order for Atropine PRN? Thanks! .. Evelyne rodney [phone].
[2020-07-04] MEDS ORDERED: atropine 1 MG/1 ML vial IV PRN (04:40)
[2020-07-04 05:29] LABS: ANISOCYTOSIS 3+; PLATELET ESTIMATE NORMAL; POLYCHROMASIA 1+
[2020-07-04 05:30] LABS: HYPOCHROMASIA 2+
--- NOTE | 2020-07-04 06:09 | NUR ---
Problems reprioritized. Patient report given, questions answered & plan of care reviewed with FARIHA Espinosa.
--- NOTE | 2020-07-04 06:25 | NUR ---
Patient in room PCU 3012. I have received report from FARIHA Canela and had the opportunity to ask questions and assume patient care.
[2020-07-04] MEDS ORDERED: EPOETIN ALFA-EPBX 20,000 UNIT/ML 1 ML MDV IV ONE (07:00)
[2020-07-04] MEDS ORDERED: albumin (human) 25% 100ml IV 100 ML IV PRN (07:00)
[2020-07-04] MEDS ORDERED: heparin 1,000 units/ml 10ml inj HE ONE ×2 (07:05)
[2020-07-04] MEDS ORDERED: amiodarone 200mg tablet PO SCH (08:00)
[2020-07-04] MEDS: polyethylene glycol 3350 17gm powd pack PO SCH (08:00)
[2020-07-04] MEDS: NUT.TX.IMP.RENAL FXN,LAC-REDUC (Nepro) 237 ML VANILLA PO SCH ×3 (08:00→18:00)
[2020-07-04] MEDS: simethicone 80mg chew tab PO SCH ×2 (08:13→13:00)
[2020-07-04] MEDS: lactobacillus rhamnosus 10,000 MMU CELLS/CAPSULE PO SCH (08:14)
[2020-07-04] MEDS: cholecalciferol (vitamin D3) 1,000 unit (25mcg) tablet PO SCH (08:14)
[2020-07-04] MEDS: vitamin B comp w/Vit. C tab 1 TAB TABLET PO SCH (08:14)
[2020-07-04] MEDS: calcitriol 0.25mcg capsule PO SCH (08:14)
[2020-07-04] MEDS: calcium acetate 667mg (PhosLO) capsule PO SCH ×3 (08:14→17:00)
[2020-07-04] MEDS: lansoprazole 15mg solutab PO SCH (08:15)
[2020-07-04] MEDS: docusate sod 100mg capsule PO SCH ×2 (08:15→19:56)
[2020-07-04] MEDS: midodrine 5mg tablet PO SCH ×3 (08:15→15:52)
[2020-07-04] MEDS: apixaban 5mg tablet PO SCH ×2 (08:16→19:57)
[2020-07-04] MEDS: piperacillin/tazo 3.375gm/50 ML IV SCH ×2 (08:16→20:00)
[2020-07-04] MEDS: carVEDilol 3.125mg tablet PO SCH ×2 (08:16→19:56)
[2020-07-04] MEDS: levetiracetam 250mg tablet PO SCH ×2 (08:28→19:57)
--- NOTE | 2020-07-04 16:34 | NUR ---
Called transfer report to Adelaida Shaw at [facility], transfer packet completed and ready for transport at 1900. Patient resting comfortably at this time. will continue to monitor. Obtained wound care photos for discharge.Waiting EMS arrival ETA 1900.
--- NOTE | 2020-07-04 16:42 | NUR ---
notifed. PAGER ID: [phone] MESSAGE: Re: JustynJose JuanMarcus. 5L taken off. C-xray taken, report not read yet. Awaiting arrival of EMS. Thanks. Tiana. [phone].
--- NOTE | 2020-07-04 18:28 | NUR ---
Problems reprioritized. Patient report given, questions answered & plan of care reviewed with FARIHA Olivera.
--- NOTE | 2020-07-04 20:09 | NUR ---
Transport arrived and transported pt via stretcher. Pt belongings included a belongings bag and heart pillow. Pt on 2L O2 and was transported on it as well. Pt in NAD. Night meds given with the exception of Zosyn.
== END 2020-07-04 20:33 | DRG 981 ==
LOC: SSTAY O 12:55 → PCU 3S 16:52 → ICU 2S 06-13 21:31 → PCU 3S 07-02 11:30
PROVIDERS: ADMIT Family Medicine; ATTEND Family Medicine
PROC: 0JH63XZ Insertion of Tunneled Vascular Access Device into Chest Subcutaneous Tissue and Fascia, Percutaneous Approach (ICD-10-PCS; 2020-06-11)
PROC: 02HV33Z Insertion of Infusion Device into Superior Vena Cava, Percutaneous Approach (ICD-10-PCS; 2020-06-11)
PROC: B548ZZA Ultrasonography of Superior Vena Cava, Guidance (ICD-10-PCS; 2020-06-11)
PROC: B5181ZA Fluoroscopy of Superior Vena Cava using Low Osmolar Contrast, Guidance (ICD-10-PCS; 2020-06-11)
PROC: 5A1D70Z Performance of Urinary Filtration, Intermittent, Less than 6 Hours Per Day (ICD-10-PCS; 2020-06-12)
PROC: 5A1955Z Respiratory Ventilation, Greater than 96 Consecutive Hours (ICD-10-PCS; 2020-06-13)
PROC: 0BH17EZ Insertion of Endotracheal Airway into Trachea, Via Natural or Artificial Opening (ICD-10-PCS; 2020-06-13)
PROC: 5A12012 Performance of Cardiac Output, Single, Manual (ICD-10-PCS; 2020-06-13)
PROC: 5A1D70Z Performance of Urinary Filtration, Intermittent, Less than 6 Hours Per Day (ICD-10-PCS; 2020-06-13)
PROC: 02HV33Z Insertion of Infusion Device into Superior Vena Cava, Percutaneous Approach (ICD-10-PCS; 2020-06-16)
PROC: B548ZZA Ultrasonography of Superior Vena Cava, Guidance (ICD-10-PCS; 2020-06-16)
PROC: 5A1D70Z Performance of Urinary Filtration, Intermittent, Less than 6 Hours Per Day (ICD-10-PCS; 2020-06-16)
PROC: 0W9B30Z Drainage of Left Pleural Cavity with Drainage Device, Percutaneous Approach (ICD-10-PCS; 2020-06-17)
PROC: 0W9930Z Drainage of Right Pleural Cavity with Drainage Device, Percutaneous Approach (ICD-10-PCS; 2020-06-17)
PROC: 5A1D70Z Performance of Urinary Filtration, Intermittent, Less than 6 Hours Per Day (ICD-10-PCS; 2020-06-18)
PROC: 4A023N8 Measurement of Cardiac Sampling and Pressure, Bilateral, Percutaneous Approach (ICD-10-PCS; 2020-06-19)
PROC: B2111ZZ Fluoroscopy of Multiple Coronary Arteries using Low Osmolar Contrast (ICD-10-PCS; 2020-06-19)
PROC: B2151ZZ Fluoroscopy of Left Heart using Low Osmolar Contrast (ICD-10-PCS; 2020-06-19)
PROC: 0WPG03Z Removal of Infusion Device from Peritoneal Cavity, Open Approach (ICD-10-PCS; principal; 2020-06-19 07:43)
PROC: 5A1D70Z Performance of Urinary Filtration, Intermittent, Less than 6 Hours Per Day (ICD-10-PCS; 2020-06-20)
PROC: 5A1D70Z Performance of Urinary Filtration, Intermittent, Less than 6 Hours Per Day (ICD-10-PCS; 2020-06-23)
PROC: 5A09357 Assistance with Respiratory Ventilation, Less than 24 Consecutive Hours, Continuous Positive Airway Pressure (ICD-10-PCS; 2020-06-24)
PROC: 5A09357 Assistance with Respiratory Ventilation, Less than 24 Consecutive Hours, Continuous Positive Airway Pressure (ICD-10-PCS; 2020-06-25)
PROC: 5A1D70Z Performance of Urinary Filtration, Intermittent, Less than 6 Hours Per Day (ICD-10-PCS; 2020-06-25)
PROC: 5A09357 Assistance with Respiratory Ventilation, Less than 24 Consecutive Hours, Continuous Positive Airway Pressure (ICD-10-PCS; 2020-06-26)
PROC: 5A1955Z Respiratory Ventilation, Greater than 96 Consecutive Hours (ICD-10-PCS; 2020-06-26)
PROC: 0BH17EZ Insertion of Endotracheal Airway into Trachea, Via Natural or Artificial Opening (ICD-10-PCS; 2020-06-26)
PROC: 5A1D70Z Performance of Urinary Filtration, Intermittent, Less than 6 Hours Per Day (ICD-10-PCS; 2020-06-26)
PROC: 5A1D70Z Performance of Urinary Filtration, Intermittent, Less than 6 Hours Per Day (ICD-10-PCS; 2020-06-28)
PROC: 5A1D70Z Performance of Urinary Filtration, Intermittent, Less than 6 Hours Per Day (ICD-10-PCS; 2020-06-30)
PROC: 5A1D70Z Performance of Urinary Filtration, Intermittent, Less than 6 Hours Per Day (ICD-10-PCS; 2020-07-02)
PROC: 5A1D70Z Performance of Urinary Filtration, Intermittent, Less than 6 Hours Per Day (ICD-10-PCS; 2020-07-04)
DX: J80 Acute respiratory distress syndrome (principal); I46.9 Cardiac arrest, cause unspecified; N18.6 End stage renal disease; G93.41 Metabolic encephalopathy; J69.0 Pneumonitis due to inhalation of food and vomit; I13.2 Hypertensive heart and chronic kidney disease with heart failure and with stage 5 chronic kidney disease, or end stage renal disease; I31.3 Pericardial effusion (noninflammatory); R18.8 Other ascites; R57.9 Shock, unspecified; J91.8 Pleural effusion in other conditions classified elsewhere; R44.3 Hallucinations, unspecified; R74.01 Elevation of levels of liver transaminase levels; I48.0 Paroxysmal atrial fibrillation; I25.10 Atherosclerotic heart disease of native coronary artery without angina pectoris; E66.9 Obesity, unspecified; D63.1 Anemia in chronic kidney disease; I49.5 Sick sinus syndrome; I50.9 Heart failure, unspecified; E78.5 Hyperlipidemia, unspecified; E87.5 Hyperkalemia; Z20.822 Contact with and (suspected) exposure to COVID-19; G40.901 Epilepsy, unspecified, not intractable, with status epilepticus; F17.200 Nicotine dependence, unspecified, uncomplicated; I49.3 Ventricular premature depolarization; T88.4XXA Failed or difficult intubation, initial encounter; Z78.1 Physical restraint status; Z99.2 Dependence on renal dialysis; Z79.899 Other long term (current) drug therapy; Z68.34 Body mass index [BMI] 34.0-34.9, adult
CPT/HCPCS: 32557; 36558; 36573; 93306; 93308; 93460; Z7506; 36415; 36600; 70450; 71045; 71046; 74018; 76937; 80048; 80053; 80202; 82728; 82803; 82810; 82948; 83540; 83550; 83605; 83735; 83880; 84100; 84134; 84145; 84443; 84478; 84484; 85007; 85008; 85014; 85018; 85025; 85610; 86706; 87040; 87070; 87081; 87340; 87635; 90935; 92508; 92616; 93005; 93880; 94002; 94003; 94640; 94660; 94760; 94799; 97110; 97161; 97530; 97535; 99152; 99153; A4215; A4618; A6258; A7000; A9270; C1751; C1769; C1894; C9113; G0378; J0171; J0461; J1642; J1644; J1756; J1815; J1953; J2001; J2060; J2150; J2212; J2250; J2310; J2370; J2543; J2704; J3010; J3370; J3475; J3486; J3490; J7030; J7050; J7120; J8597; P9047; Q4081; Q9967